=== PATIENT | male | born 1945 | race Caucasian/White ===

== ENCOUNTER → 2016-11-22 | Outpatient (CLI) | payer OTHER ==
[~2016-11-22] MED LIST: ASCA500 PO; BENA20TA14 PO; CYAN250T PO; DILT-119 PO; GLC500 PO; INSU70IN2 SC; MULT-506 PO; NIAC1TAB59 PO; PYRI60TA2 PO; SIMV80TA2 PO; SITA100T3 PO; THIA100T11 PO
[2016-11-22 11:16] LABS: HEMATOCRIT 44.1 % (42-52); MEAN CELL VOLUME 91.7 fL (80-100); MEAN CORPUSCULAR HEMOGLOBIN 31.2 pg (25-34); MEAN PLATELET VOLUME 9.7 fL (7.4-10.4); PLATELET COUNT 265 K/uL (130-400); RED BLOOD COUNT 4.81 M/uL (4.7-6.1); WHITE BLOOD COUNT 6.06 K/uL (4.8-10.8)
[2016-11-22 11:25] LABS: ALT/SGPT 23 U/L (12-78); AST/SGOT 18 U/L (15-37); BLOOD UREA NITROGEN 26 mg/dl (7-18); CALCIUM 8.8 mg/dl (8.5-10.1); CARBON DIOXIDE 29 mmol/L (21-32); CHLORIDE 104 mmol/L (98-107); GLUCOSE 222 mg/dl (70-99); POTASSIUM 3.8 mmol/L (3.5-5.1); SODIUM 141 mmol/L (136-145)
[2016-11-22 11:27] LABS: ALB/GLOB RATIO 1.2 (0.9-2); ALKALINE PHOSPHATASE 35 U/L (45-117)
[2016-11-22 11:27] LABS: URINE APPEARANCE CLEAR (CLEAR); URINE BILIRUBIN NEG (NEG); URINE COLOR YELLOW; URINE NITRITE NEG (NEG); URINE PH 5.5 (4.5-7.5); UROBILINOGEN NEG (NEG)
[2016-11-22 11:28] LABS: MANUAL MICROSCOPIC REQUIRED? NO; REVIEW REQ? NO
[2016-11-22 11:48] LABS: URINE PROTIEN/CREAT RATIO 0.2 (0-0.2); URINE TOTAL PROTEIN 28.1 mg/dl (0-11.9)
== END | disposition home or self-care (01) ==
LOC: C.LABBC 09:12
PROVIDERS: ATTEND Internal Medicine Nephrology
DX: E55.9 Vitamin D deficiency, unspecified (principal); I12.9 Hypertensive chronic kidney disease with stage 1 through stage 4 chronic kidney disease, or unspecified chronic kidney disease; N18.3 Chronic kidney disease, stage 3 (moderate); R80.9 Proteinuria, unspecified; E11.9 Type 2 diabetes mellitus without complications

== ENCOUNTER → 2017-05-09 | Outpatient (CLI) | payer OTHER ==
[2017-05-09 11:03] LABS: HEMATOCRIT 45.1 % (42-52); MEAN CELL VOLUME 89.3 fL (80-100); MEAN CORPUSCULAR HEMOGLOBIN 31.7 pg (25-34); MEAN CORPUSCULAR HGB CONC 35.5 g/dl (32-36); MEAN PLATELET VOLUME 9.9 fL (7.4-10.4); PLATELET COUNT 267 K/uL (130-400); RED BLOOD COUNT 5.05 M/uL (4.7-6.1); WHITE BLOOD COUNT 6.19 K/uL (4.8-10.8)
[2017-05-09 11:18] LABS: BLOOD UREA NITROGEN 28 mg/dl (7-18); BUN/CREATININE RATIO 13.8 (10-20); CALCIUM 9.3 mg/dl (8.5-10.1); CARBON DIOXIDE 24 mmol/L (21-32); CHLORIDE 102 mmol/L (98-107); CHOLESTEROL 181 mg/dl (0-200); GLUCOSE 311 mg/dl (70-99); POTASSIUM 3.5 mmol/L (3.5-5.1); SODIUM 137 mmol/L (136-145); TRIGLYCERIDES 345 mg/dl (0-150); VERY LOW DENSITY LIPOPROT CALC 69 mg/dl
[2017-05-09 11:31] LABS: URINE APPEARANCE CLEAR (CLEAR); URINE BILIRUBIN NEG (NEG); URINE COLOR YELLOW; URINE EPITHELIAL CELL AUTO 0-5 /lpf (0-5); URINE NITRITE NEG (NEG); URINE SPECIFIC GRAVITY 1.023 (1.000-1.030); UROBILINOGEN NEG (NEG)
[2017-05-09 11:33] LABS: MANUAL MICROSCOPIC REQUIRED? NO; REVIEW REQ? NO
[2017-05-09 11:35] LABS: URINE PROTIEN/CREAT RATIO 0.1 (0-0.2); URINE TOTAL PROTEIN 19.2 mg/dl (0-11.9)
[2017-05-09 11:59] LABS: HDL CHOLESTEROL 26 mg/dl; PHOSPHORUS 3.2 mg/dl (2.5-4.9)
[2017-05-09 12:06] LABS: BETA-HYDROXYBUTYRATE 3.16 mg/dL (0.2-2.81)
== END | disposition home or self-care (01) ==
LOC: C.LABBC 09:25
PROVIDERS: ATTEND Internal Medicine Nephrology
DX: E78.5 Hyperlipidemia, unspecified (principal); E55.9 Vitamin D deficiency, unspecified; I12.9 Hypertensive chronic kidney disease with stage 1 through stage 4 chronic kidney disease, or unspecified chronic kidney disease; R80.9 Proteinuria, unspecified; N18.3 Chronic kidney disease, stage 3 (moderate)

== ENCOUNTER → 2017-09-18 | Outpatient (CLI) | payer OTHER ==
[~2017-09-18] MED LIST changes: +ASPI-461 PO; +ATOR-26 PO; +AZAT50TA17 PO; +BENA1TAB53 PO; +CHOL100010 PO; +CYAN100020 PO; +FENO145T26 PO; +HYDR25TA5 PO; +IBUP600T44 PO; +INSDGIPEN SC; +MULTCAP36 PO; +NAPR-22 PO; +NRN600 PO; +NVLGI/PEN SC; +TADA20TA PO; +THIA100T10 PO; -THIA100T11 PO
--- NOTE | 2017-09-18 16:17 | DIAGNOSTIC IMAGING REPORT ---
CHEST 2 VIEWS ROUTINE CLINICAL HISTORY: R05 [id number] cough. Dyspnea. COMPARISON STUDY: No previous studies for comparison. FINDINGS: The bones soft tissues and hemidiaphragms are normal. The cardiomediastinal silhouette is normal. The lungs are clear. The pulmonary vasculature is normal. IMPRESSION: Negative chest. The above report was generated using voice recognition software. It may contain grammatical, syntax or spelling errors. Electronically signed by: Valerio Teresa M.D. 09/18/2017 4:16 PM Dictated Date/Time: 09/18/2017 4:15 PM
== END | disposition home or self-care (01) ==
LOC: C.RADBC 15:54
PROVIDERS: ATTEND Nurse Practitioner Adult Health
DX: R05 Cough (principal)

== ENCOUNTER 2017-10-27 16:00 | Inpatient (IN) | payer OTHER ==
[~2017-10-27] VITALS: Ht 182.9 cm; Wt 107.4 kg
[~2017-10-27 16:00] MED LIST changes: -ASPI-461 PO; -ATOR-26 PO; -AZAT50TA17 PO; -BENA1TAB53 PO; -CHOL100010 PO; -CYAN100020 PO; -FENO145T26 PO; -HYDR25TA5 PO; -IBUP600T44 PO; -INSDGIPEN SC; -MULTCAP36 PO; -NAPR-22 PO; -NRN600 PO; -NVLGI/PEN SC; -TADA20TA PO; -THIA100T10 PO; +THIA100T11 PO
[2017-10-27] MEDS ORDERED: SODIUM CHLORIDE 0.9% 1000ML 1,000 ML IV STA (16:15)
--- NOTE | 2017-10-27 16:35 | DIAGNOSTIC IMAGING REPORT ---
CHEST ONE VIEW PORTABLE CLINICAL HISTORY: Pain, radiating to the abdomen COMPARISON STUDY: 09/18/2017 FINDINGS: The cardiac and mediastinal contours are normal. There is no evidence of focal pulmonary consolidation. There is no evidence of failure. No pleural effusions are visualized.[ No free intraperitoneal air is visualized. IMPRESSION: No active disease in the chest. Electronically signed by: Farooq Laws M.D. 10/27/2017 4:34 PM Dictated Date/Time: 10/27/2017 4:33 PM
[2017-10-27] MEDS ORDERED: PANTOprazole INJ 80 MG in DEXTROSE 5% 100ML IV ONE (16:45)
[2017-10-27 16:48] LABS: BASO % 0.1 %; BASO ABS # 0.01 K/uL (0-0.2); EOS % 0.2 %; EOS ABS # 0.02 K/uL (0-0.5); HEMATOCRIT 41.1 % (42-52); HEMOGLOBIN 14.4 g/dL (14.0-18.0); IG# 0.05 K/uL (0.00-0.02); LYMPH % 7.3 %; LYMPH ABS # 0.85 K/uL (1.2-3.4); MEAN CELL VOLUME 90.3 fL (80-100); MEAN CORPUSCULAR HEMOGLOBIN 31.6 pg (25-34); MEAN PLATELET VOLUME 10.1 fL (7.4-10.4); MONO % 5.9 %; MONO ABS # 0.68 K/uL (0.11-0.59); NEUT % 86.1 %; NEUT ABS # 9.96 K/uL (1.4-6.5); PLATELET COUNT 254 K/uL (130-400); RED CELL DISTRIBUTION WIDTH CV 13.2 % (11.5-14.5); RED CELL DISTRIBUTION WIDTH SD 43.2 fL (36.4-46.3); WHITE BLOOD COUNT 11.57 K/uL (4.8-10.8)
[2017-10-27 16:58] LABS: PTT PATIENT 30.8 SECONDS (21.0-31.0)
[2017-10-27] MEDS ORDERED: PANTOprazole INJ 40 MG in DEXTROSE 5% 100ML IV SCH (17:00)
[2017-10-27] MEDS ORDERED: INSDGIPEN SC (17:05)
[2017-10-27] MEDS ORDERED: TADA20TA PO (17:05)
[2017-10-27] MEDS ORDERED: NRN600 PO (17:05)
[2017-10-27] MEDS ORDERED: CHOL100010 PO (17:05)
[2017-10-27] MEDS ORDERED: MULTCAP36 PO (17:05)
[2017-10-27] MEDS ORDERED: PYRI60TA2 PO (17:05)
[2017-10-27] MEDS ORDERED: HYDR25TA5 PO (17:05)
[2017-10-27] MEDS ORDERED: BENA1TAB53 PO (17:05)
[2017-10-27] MEDS ORDERED: NVLGI/PEN SC (17:05)
[2017-10-27] MEDS ORDERED: NAPR-1169 PO (17:05)
[2017-10-27] MEDS ORDERED: FENO145T26 PO (17:05)
[2017-10-27] MEDS ORDERED: AZAT50TA17 PO (17:05)
[2017-10-27] MEDS ORDERED: IBUP600T44 PO (17:05)
[2017-10-27] MEDS ORDERED: ASPI-461 PO (17:05)
[2017-10-27] MEDS ORDERED: ATOR-26 PO (17:05)
[2017-10-27] MEDS ORDERED: CYAN100020 PO (17:05)
[2017-10-27 17:14] LABS: ALBUMIN 2.9 gm/dl (3.4-5.0); ALKALINE PHOSPHATASE 106 U/L (45-117); ALT/SGPT 46 U/L (12-78); AST/SGOT 94 U/L (15-37); BLOOD UREA NITROGEN 50 mg/dl (7-18); CARBON DIOXIDE 22 mmol/L (21-32); CREATININE 2.04 mg/dl (0.60-1.40); GLUCOSE 461 mg/dl (70-99); LIPASE 142 U/L (73-393); POTASSIUM 3.8 mmol/L (3.5-5.1); SODIUM 131 mmol/L (136-145); TOTAL PROTEIN 7.5 gm/dl (6.4-8.2)
[2017-10-27] MEDS ORDERED: NovoLIN-R INSULIN PER UNIT CHARGE SC STA (17:28)
--- NOTE | 2017-10-27 18:07 | DIAGNOSTIC IMAGING REPORT ---
CT SCAN OF THE ABDOMEN AND PELVIS WITHOUT CONTRAST CLINICAL HISTORY: Generalized abdominal pain COMPARISON STUDY: No previous studies for comparison. TECHNIQUE: CT scan of the abdomen and pelvis was performed from the lung bases to the proximal femurs. Images are reviewed in the axial, sagittal, and coronal planes. IV contrast was not administered for this examination. A dose lowering technique was utilized adhering to the principles of ALARA. CT DOSE: 1013.90 mGy.cm FINDINGS: Lower chest: There are minor dependent atelectatic changes. There are coronary artery calcifications. Liver: The unenhanced liver is normal in size, contour, and attenuation. There is no intrahepatic biliary ductal dilatation. Gallbladder: There are multiple gallstones present. There is gallbladder wall thickening. There is infiltration of the pericholecystic fat. The findings are viewed as suspicious for acute cholecystitis. Spleen: Normal in size and attenuation. Pancreas: Unremarkable. Adrenal glands: There is mild adrenal gland thickening Kidneys: No renal, ureteral, or bladder calculi are visualized. Bowel: There are no transition zones indicate bowel obstruction. There is colonic diverticulosis. There are no acute peridiverticular inflammatory changes. The appendix appears normal. There is a large duodenal diverticulum. Peritoneum: There is no intraperitoneal free air or abdominal ascites. Vasculature: The abdominal aorta is normal in course and caliber. Adenopathy: None. Pelvic viscera: The prostate is enlarged measuring 62 mm in diameter. Skeletal structures: No destructive osseous lesions are seen. There is a prominent disc osteophyte complex at the L5-S1 level. IMPRESSION: 1. Multiple gallstones, gallbladder wall thickening, and infiltration of the pericholecystic fat. The findings are viewed as highly suspicious for acute cholecystitis. 2. No evidence of bowel obstruction. No evidence of free air 3. Normal appendix 4. Diverticulosis. No evidence of acute diverticulitis 5. Enlarged prostate Electronically signed by: Farooq Laws M.D. 10/27/2017 6:05 PM Dictated Date/Time: 10/27/2017 6:00 PM
[2017-10-27] MEDS ORDERED: ACETAMINOPHEN 325 MG TAB PO PRN (19:15)
[2017-10-27] MEDS ORDERED: ONDANSETRON INJ 2 MG/ML 2 ML VIAL IV PRN (19:15)
[2017-10-27] MEDS ORDERED: ALUMINUM/MAGNESIUM/SIMETH (MAALOX MAX) 30 ML UDC PO PRN (19:15)
[2017-10-27] MEDS ORDERED: PHARMACY GLYCEMIC MGMT CONSULT PRN (19:15)
[2017-10-27] MEDS ORDERED: MAGNESIUM HYDROXIDE SUSP 30 ML UDC PO PRN (19:15)
[2017-10-27] MEDS ORDERED: POLYETHYLENE (MIRALAX) 17 GM PACK PO PRN (19:15)
--- NOTE | 2017-10-27 19:34 | History and Physical ---
History & Physical Date & Time of Service: Oct 27, 2017 at 19:34 Chief Complaint: Upper Gastric Pain Primary Care Physician: Audrey Treadwell .KAYCEE History of Present Illness Source: patient, family Mr. Hardy is a 72 y/o male with PMHx of T2DM, HTN, HLD, CKD Stage III, and Myasthenia Gravis who prevents to the ED from his PCP for acute onset upper abdominal pain that started today. However, he states his symptoms started with discomfort but emphasizes this was not pain. He had a heavy lunch on and took his insulin as prescribed. Throughout the day he was experiencing abdominal bloating, frequent urination, and feelings of thirst. However he states he didn't have much of an appetite because of this discomfort and feelings of nausea. He has only been eating crackers and buttered toast since that large lunch. Since he has not been eating he did not take his insulin from Thursday until today which he only reports taking approx. 20 units. He normally takes Novolog 40 units breakfast and 40 units at dinner with Lantus 80 units HS. He reports he has not been checking his glucose over these past few days. He has uncontrolled diabetes with A1c from Aug 2016 of 11.5. He states when he went to his PCP for his fatigue and discomfort he developed acute upper quadrant abdominal pain that spans across the lower chest that lasted approx. 30 minutes. Cannot identify aggravating factors but morphine in the ambulance helped give relief. He also reports one bowel movement this AM that was black in color and has not had a BM since. He denies iron supplementation or Pepto-Bismol use. He occ. uses NSAIDs but is rare and not every day. He states he has had intermittent black stool in the past stating it was because he was anemic but did denies H/O known ulcers. In the ED, CT reveals findings suggesting acute cholecystitis. He is afebrile with a mild leukocytosis. Cr is 2.04 with baseline appearing to be 2.2 per nephrology notes. Glucose is 461 with anion gap of 15. Given 7 units Novolog in ED with improvement to 385. Past Medical/Surgical History 1. T2DM 2. HTN 3. HLD 4. CKD Stage III 5. Myasthenia Gravis Family History Diabetes mellitus Hypertension Social History Smoking Status: Current Some Day Smoker (cigars) Smokeless Tobacco Use: No Alcohol Use: none Drug Use: none Marital Status: Housing status: lives with significant other Occupational Status: employed Immunizations History of Influenza Vaccine: Yes History of Tetanus Vaccine?: Unknown History of Pneumococcal: Unknown History of Hepatitis B Vaccine: Unknown Multi-Drug Resistant Organisms History of MDRO: No Allergies Coded Allergies: No Known Allergies (Unverified , 10/27/17) Home Medications Scheduled Aspirin (Aspirin), 81 MG PO DAILY Atorvastatin (Lipitor), 80 MG PO DAILY Azathioprine (Imuran), 100 MG PO DAILY Benazepril (Lotensin), 40 MG PO DAILY Cholecalciferol (Vitamin D), 1,000 UNITS PO DAILY Cyanocobalamin (Vitamin B12), 1,000 MG PO DAILY Fenofibrate (Tricor ), 145 MG PO DAILY Gabapentin (Gabapentin), 600 MG PO HS Hydrochlorothiazide (Hydrochlorothiazide), 25 MG PO DAILY Insulin Aspart (Novolog Flexpen), 80 UNITS SC UD Insulin Glargine (Lantus Solostar), 80-90 UNITS SC DAILY Multiple Vitamins W/ Minerals (Preservision/Lutein), 2 CAP PO DAILY Pyridostigmine [place] (Mestinon), 360-720 TABS PO DAILY Scheduled PRN Ibuprofen (Motrin), 600 MG PO QID PRN for Pain Naproxen (Naprosyn), 500 MG PO BID PRN for Pain Tadalafil (Cialis), 20 MG PO UD PRN for ACTIVITY Review of Systems General/Constitutional: + chills, + fatigue, + generalized weakness; Denies fever ENT: Denies visual changes, nasal drainage, hearing loss, sore throat, trouble swallowing Cardiovascular: Denies chest pain, palpitations, edema Respiratory: Denies cough, sputum, SOB, wheezing, orthopnea GI: + nausea, + abdominal pain, + melena; Denies vomiting, hematochezia : + urinary frequency; Denies dysuria Musculoskeletal: Denies joint/muscle aches, weakness, swelling Neurologic: Denies dizziness/lightheadedness, numbness/tingling, weakness Endocrine: + polydipsia, + polyuria Hematologic/Lymphatic: Denies bleeding/clotting abnormalities Skin: Denies rash Physical Exam Vital Signs Date Time Temp Pulse Resp B/P (MAP) Pulse Ox O2 Delivery O2 Flow Rate FiO2 2/6/18 17:36 168/86 10/27/17 17:30 93 19 10/27/17 17:00 91 13 10/27/17 16:30 94 16 10/27/17 16:20 93 10/27/17 16:19 37.2 102 19 154/73 97 Room Air 10/27/17 16:18 97 Room Air 10/27/17 16:05 154/73 General Appearance: WDWN in NAD who is A&O x 3 HEENT: Head is normocephalic/atraumatic; EOMI; PERRLA; Hearing grossly intact; Mucous membranes dry Neck: Supple; Trachea midline; Neg JVD Heart: RRR with no M/G/R Lungs: CTA in all lung lan bilaterally; Respirations unlabored; Neg accessory muscle use Abdomen: Soft, tender to palpation in RUQ without guarding or rigidity, mildly distended; Positive BS x 4 quadrants Extremities: Capillary refill < 2 seconds; Neg cyanosis or edema Neurological: Speech clear, Neg focal neurologic deficits, gait steady Psychiatric: Appropriate mood/affect Skin: Normal Color; Warm/Dry Diagnostics Laboratory Results Results Past 24 Hours Test 10/27/17 16:25 10/27/17 19:29 Range/Units White Blood Count 11.57 4.8-10.8 K/uL Red Blood Count 4.55 4.7-6.1 M/uL Hemoglobin 14.4 14.0-18.0 g/dL Hematocrit 41.1 42-52 % Mean Corpuscular Volume 90.3 80-100 fL Mean Corpuscular Hemoglobin 31.6 25-34 pg Mean Corpuscular Hemoglobin Concent 35.0 32-36 g/dl Platelet Count 254 130-400 K/uL Mean Platelet Volume 10.1 7.4-10.4 fL Neutrophils (%) (Auto) 86.1 % Lymphocytes (%) (Auto) 7.3 % Monocytes (%) (Auto) 5.9 % Eosinophils (%) (Auto) 0.2 % Basophils (%) (Auto) 0.1 % Neutrophils # (Auto) 9.96 1.4-6.5 K/uL Lymphocytes # (Auto) 0.85 1.2-3.4 K/uL Monocytes # (Auto) 0.68 0.11-0.59 K/uL Eosinophils # (Auto) 0.02 0-0.5 K/uL Basophils # (Auto) 0.01 0-0.2 K/uL RDW Standard Deviation 43.2 36.4-46.3 fL RDW Coefficient of Variation 13.2 11.5-14.5 % Immature Granulocyte % (Auto) 0.4 % Immature Granulocyte # (Auto) 0.05 0.00-0.02 K/uL Prothrombin Time 10.0 9.0-12.0 SECONDS Prothromb Time International Ratio 1.0 0.9-1.1 Activated Partial Thromboplast Time 30.8 21.0-31.0 SECONDS Partial Thromboplastin Ratio 1.2 Sodium Level 131 136-145 mmol/L Potassium Level 3.8 3.5-5.1 mmol/L Chloride Level 94 98-107 mmol/L Carbon Dioxide Level 22 21-32 mmol/L Anion Gap 15.0 3-11 mmol/L Blood Urea Nitrogen 50 7-18 mg/dl Creatinine 2.04 0.60-1.40 mg/dl Est Creatinine Clear Calc Drug Dose 42.5 ml/min Estimated GFR () 36.6 Estimated GFR (Non- 31.6 BUN/Creatinine Ratio 24.3 10-20 Random Glucose 461 70-99 mg/dl Calcium Level 9.0 8.5-10.1 mg/dl Magnesium Level 2.8 1.8-2.4 mg/dl Total Bilirubin 1.9 0.2-1 mg/dl Direct Bilirubin 1.0 0-0.2 mg/dl Aspartate Amino Transf (AST/SGOT) 94 15-37 U/L Alanine Aminotransferase (ALT/SGPT) 46 12-78 U/L Alkaline Phosphatase 106 45-117 U/L Troponin I < 0.015 0-0.045 ng/ml Total Protein 7.5 6.4-8.2 gm/dl Albumin 2.9 3.4-5.0 gm/dl Lipase 142 73-393 U/L Beta-Hydroxybutyric Acid 27.22 0.2-2.81 mg/dL Diagnostic Radiology CT SCAN OF THE ABDOMEN AND PELVIS WITHOUT CONTRAST FINDINGS: Lower chest: There are minor dependent atelectatic changes. There are coronary artery calcifications. Liver: The unenhanced liver is normal in size, contour, and attenuation. There is no intrahepatic biliary ductal dilatation. Gallbladder: There are multiple gallstones present. There is gallbladder wall thickening. There is infiltration of the pericholecystic fat. The findings are viewed as suspicious for acute cholecystitis. Spleen: Normal in size and attenuation. Pancreas: Unremarkable. Adrenal glands: There is mild adrenal gland thickening Kidneys: No renal, ureteral, or bladder calculi are visualized. Bowel: There are no transition zones indicate bowel obstruction. There is colonic diverticulosis. There are no acute peridiverticular inflammatory changes. The appendix appears normal. There is a large duodenal diverticulum. Peritoneum: There is no intraperitoneal free air or abdominal ascites. Vasculature: The abdominal aorta is normal in course and caliber. Adenopathy: None. Pelvic viscera: The prostate is enlarged measuring 62 mm in diameter. Skeletal structures: No destructive osseous lesions are seen. There is a prominent disc osteophyte complex at the L5-S1 level. IMPRESSION: 1. Multiple gallstones, gallbladder wall thickening, and infiltration of the pericholecystic fat. The findings are viewed as highly suspicious for acute cholecystitis. 2. No evidence of bowel obstruction. No evidence of free air 3. Normal appendix 4. Diverticulosis. No evidence of acute diverticulitis 5. Enlarged prostate CHEST ONE VIEW PORTABLE FINDINGS: The cardiac and mediastinal contours are normal. There is no evidence of focal pulmonary consolidation. There is no evidence of failure. No pleural effusions are visualized.[ No free intraperitoneal air is visualized. IMPRESSION: No active disease in the chest. EKG Normal sinus rhythm Prolonged QT Abnormal ECG When compared with ECG of 20-JAN-2011 14:02, QT has lengthened Impression Assessment and Plan Mr. Hardy is a 72 y/o male with PMHx of T2DM, HTN, HLD, CKD Stage III, and Myasthenia Gravis who prevents to the ED from his PCP for acute onset upper abdominal pain that started today. CT reveals acute cholecystitis and presence of DKA. Acute Cholecystitis: - Invanz 1 g IV daily - NPO - Morphine PRN pain - Consult Gen Surg - appreciate recommendations Uncontrolled T2DM with DKA and Anion Gap: A1c 11.5 (Aug 2016) - Initial BSG 461 was given 7 units Novolog in ED with improvement to 385 - Start insulin gtt with HHS guidelines to reduce rapid decrease in glucose - NSS 1 L given in ED and will initiate NSS + 20 mEq KCl at 125 mL/hr as K is low normal with pending order to convert to D5 1/2 NS + 20 mEq KCl when BSGs reach goal - VBG, BMP, Mag, and Phos Q4H until stabilized and anion gap closes - Obtain updated A1c QT Prolongation: - Continue to monitor - repeat EKG in AM and monitor electrolytes CKD Stage III: Baseline Cr 2.2 - Follows with nephrology - is currently stable and will continue to monitor Melena? Possible Upper GI Bleed: - Protonix gtt and monitor H&H - Hold ASA given possible melena and possible surgical intervention HTN: - Hold HCTZ and Bonazepril and cover with Hydralazine PRN HLD: - Hold Atorvastatin and Tricor Myasthenia Gravis: STABLE - Patient reports he does not take Mestinon or Imuran anymore and denies recent myasthenia crises DVT Prophylaxis: SCDs Code Status: FULL RESUSCITATION PA Physician Supervision Note: I interviewed and examined the patient. Discussed with mid level PA and agree with findings and plan as documented in the note. Any exceptions or clarifications are listed here: None, agreed current management, for details please referral to PA's note S: was having once tarry stool, missed 3-4 days insulin, then gave 28 unit by self this am, was feeling mid chest pain lasting 3-5 min, resolved on its own ROS details see PA's note O: VS reviewed, stable, NAD, conversational, not pale, Lungs: decreased breathing sound, no respiratory distress, no accessory muscle use Cardiovascular: regular rate, rhythm, trace edema, normal peripheral pulses Abdomen / GI: normal bowel sounds, RUQ mild tender, soft Extremities: no calf tenderness, no pedal edema Neurologic/Psychiatric: alert, normal mood/affect, oriented x 3, CNII-XII intact labs, images reviewed , see PA's note A/P: 72 yo with : possible upper GI bleeding, NSAID related? PPI drip, GI consult, f/U HH cholecystitis: iv abx surgeon consult episode of chest pain lasting 3-5 min, ekg unremarkable , will be tele, ce and tn x2 more, IDDM, medicine none compliance, possible DKA with AG 15, insulin drip, pharmacy consulted d/w pt and family about care plan, answered questions Level of Care Telemetry Resuscitation Status FULL RESUSCITATION VTE Prophylaxis VTE Risk Assessment Done? Y/N: Yes Risk Level: Moderate Given or contraindicated: SCD's
[2017-10-27] MEDS ORDERED: METRONIDAZOLE / NSS 500 MG in PREMIXED NSS 100 ML IV SCH (19:45)
[2017-10-27] MEDS ORDERED: MoRPHine SULFATE 2 MG/ML CARP IV PRN (19:45)
[2017-10-27] MEDS ORDERED: MoRPHine SULFATE 4 MG/ML 1 ML CARP\\VIAL IV PRN (19:45)
[2017-10-27] MEDS ORDERED: HHS GOAL RANGE 250-350 mg/dl ONE (20:09)
[2017-10-27] MEDS ORDERED: INSULIN IV INFUSION PROTOCOL STA (20:10)
[2017-10-27] MEDS ORDERED: SEVERE STRESS LEVEL ONE (20:10)
[2017-10-27 20:18] LABS: HEMATOCRIT 39.5 % (42-52); HEMOGLOBIN 13.8 g/dL (14.0-18.0); MEAN CELL VOLUME 90.2 fL (80-100); MEAN CORPUSCULAR HEMOGLOBIN 31.5 pg (25-34); MEAN CORPUSCULAR HGB CONC 34.9 g/dl (32-36); PLATELET COUNT 257 K/uL (130-400); RED CELL DISTRIBUTION WIDTH CV 13.2 % (11.5-14.5); RED CELL DISTRIBUTION WIDTH SD 43.5 fL (36.4-46.3); WHITE BLOOD COUNT 10.34 K/uL (4.8-10.8)
[2017-10-27] MEDS ORDERED: PENDING D5 1/2NS+20mEq KCL IVF SCH (20:30)
[2017-10-27 20:48] LABS: CALCIUM 8.5 mg/dl (8.5-10.1); CREATININE 1.87 mg/dl (0.60-1.40); PHOSPHORUS 2.9 mg/dl (2.5-4.9); POTASSIUM 3.7 mmol/L (3.5-5.1)
[2017-10-27 20:50] VITALS: BP 154/80; PULSE 96; TEMP 37.4; O2SAT 96; BMI 31.8
[2017-10-27] MEDS: INSULIN ASPART 100 UNITS/ML 3 ML PEN SC SCH (21:00)
[2017-10-27] MEDS ORDERED: PANTOprazole INJ 40 MG in SYRINGE 0 ML IV SCH (21:00)
[2017-10-27] MEDS ORDERED: CIPROFLOXACIN / D5W 400 MG in PREMIXED IN D5W 200 ML IV SCH (21:00)
[2017-10-27] MEDS ORDERED: INSULIN HUMAN REGULAR IV BOLUS 4 UNIT in SYRINGE 0 ML IV ONE (21:15)
[2017-10-27] MEDS ORDERED: POTASSIUM CHLORIDE INJ 20 MEQ in SODIUM CHLORIDE 0.9% 1000ML 1,000 ML IV SCH (21:30)
--- NOTE | 2017-10-27 22:02 | Surgery Consultation ---
Consultation Date of Consultation: Oct 27, 2017. Attending Physician: Jose Reyes MD, PhD Reason for Consultation: Acute Cholecystitis History of Present Illness Patient is a 72M who presents to the ED tonight with RUQ abdominal pain which started earlier today around 3pm. States he has also had some nausea since but denies any episodes of vomiting. Denies trouble with urination. States he did have a dark BM this morning but denies any problems moving his bowels. Denies fever/chills/recent illness. States he has had some toast yesterday and some saltines this AM but denies any other food in the past 5 days. States he feels thirsty right now more than anything. PSHx significant for bilateral hernia repairs w/ mesh. Denies any other abdominal surgeries. Denies use of blood thinning or anticoagulant medications. PMHx significant for HTN and DM. Pt was found to have a random glucose of 461 in the ED. WBC 11.57 upon presentation to ED now down to 10.34. LFTs elevated in the ED as well. CT abd/pelvis shows Multiple gallstones, gallbladder wall thickening, and infiltration of the pericholecystic fat. Findings suggestive of acute cholecystitis. Family History Diabetes mellitus Hypertension Social History Smoking Status: Current Some Day Smoker (cigars) Smokeless Tobacco Use: No Alcohol Use: none Drug Use: none Marital Status: Occupation Status: employed Allergies Coded Allergies: No Known Allergies (Unverified , 10/27/17) Home Medications Scheduled Aspirin (Aspirin), 81 MG PO DAILY Atorvastatin (Lipitor), 80 MG PO DAILY Benazepril (Lotensin), 40 MG PO DAILY Cholecalciferol (Vitamin D), 1,000 UNITS PO DAILY Cyanocobalamin (Vitamin B12), 1,000 MG PO DAILY Fenofibrate (Tricor ), 145 MG PO DAILY Gabapentin (Gabapentin), 600 MG PO HS Hydrochlorothiazide (Hydrochlorothiazide), 25 MG PO DAILY Insulin Aspart (Novolog Flexpen), 80 UNITS SC UD Insulin Glargine (Lantus Solostar), 80-90 UNITS SC DAILY Multiple Vitamins W/ Minerals (Preservision/Lutein), 2 CAP PO DAILY Scheduled PRN Ibuprofen (Motrin), 600 MG PO QID PRN for Pain Naproxen (Naprosyn), 500 MG PO BID PRN for Pain Tadalafil (Cialis), 20 MG PO UD PRN for ACTIVITY Current Inpatient Medications Current Inpatient Medications Medications (Trade) Dose Ordered Sig/Fer Route Start Time Stop Time Status Last Admin Dose Admin Pantoprazole Sodium 40 mg/ Dextrose 100 ml @ 20 mls/hr Q5H IV 10/27/17 17:00 10/27/17 21:59 10/27/17 17:28 20 MLS/HR Potassium Chloride 20 meq/ Sodium Chloride 1,010 ml @ 125 mls/hr Q8H5M IV 10/27/17 21:30 11/26/17 21:29 10/27/17 21:34 125 MLS/HR Acetaminophen (Tylenol Tab) 650 mg Q4H PRN PO 10/27/17 19:15 11/26/17 19:14 Al Hydrox/Mg Hydrox/Simethicone (Maalox Max Susp) 15 ml Q4H PRN PO 10/27/17 19:15 11/26/17 19:14 Magnesium Hydroxide (Milk Of Magnesia Susp) 30 ml Q12H PRN PO 10/27/17 19:15 11/26/17 19:14 Ondansetron HCl (Zofran Inj) 4 mg Q6H PRN IV 10/27/17 19:15 11/26/17 19:14 Polyethylene (Miralax Powder Packet) 17 gm DAILY PRN PO 10/27/17 19:15 11/26/17 19:14 Insulin Aspart (novoLOG ASPART) [facility] 10/27/17 21:00 11/26/17 20:59 Miscellaneous Information (PENDING D5 1/ 2NS+20mEq KCL IVF) 1 ea Q2H N/A 10/27/17 20:30 11/26/17 20:29 Miscellaneous Information (Consult Glycemic Management Pharmacy) 1 ea UD PRN N/A 10/27/17 19:15 11/26/17 19:14 Morphine Sulfate (MoRPHine SULFATE INJ) 2 mg Q3H PRN IV 10/27/17 19:45 11/10/17 19:44 Morphine Sulfate (MoRPHine SULFATE INJ) 4 mg Q3H PRN IV 10/27/17 19:45 11/10/17 19:44 Ertapenem 1 gm/ Sodium Chloride 50 ml @ 120 mls/hr Q24H IV 10/27/17 21:00 11/06/17 20:59 Hydralazine HCl (HydrALAZINE INJ) 10 mg Q6 PRN IV. 10/27/17 20:00 11/26/17 19:59 Pantoprazole Sodium 40 mg/ Dextrose 100 ml @ 20 mls/hr Q5H IV 10/27/17 22:00 11/26/17 21:59 Insulin Human Regular 250 units/ Sodium Chloride 252.5 ml @ 0 mls/hr Q24H IV 10/27/17 21:15 11/26/17 21:14 Review of Systems Constitutional: No fever, No chills Respiratory: No shortness of breath Cardiovascular: No chest pain Abdomen: + pain, + nausea, No vomiting, No diarrhea, No constipation Genitourinary - Male: No dysuria Integumentary: No color change Physical Exam Date Time Temp Pulse Resp B/P (MAP) Pulse Ox O2 Delivery O2 Flow Rate FiO2 10/27/17 20:12 90 15 10/27/17 20:00 149/78 10/27/17 19:42 92 18 96 10/27/17 19:37 169/84 10/27/17 19:11 102 20 97 10/27/17 19:00 153/89 10/27/17 18:41 95 18 96 10/27/17 17:41 93 20 10/27/17 17:36 168/86 10/27/17 17:30 93 19 10/27/17 17:00 91 13 10/27/17 16:30 94 16 10/27/17 16:20 93 10/27/17 16:19 37.2 102 19 154/73 97 Room Air 10/27/17 16:18 97 Room Air 10/27/17 16:05 154/73 General Appearance: WD/WN, no apparent distress Head: normocephalic, atraumatic ENT: hearing grossly normal Respiratory/Chest: no respiratory distress, no accessory muscle use Abdomen/GI: soft, no organomegaly, no pulsatile mass, + tenderness (RUQ) Neurologic/Psych: alert, normal mood/affect, oriented x 3 Skin: normal color, warm/dry Laboratory Results Last 24 Hours Test 10/27/17 16:25 10/27/17 19:36 10/27/17 19:50 10/27/17 20:10 White Blood Count 11.57 K/uL 10.34 K/uL Red Blood Count 4.55 M/uL 4.38 M/uL Hemoglobin 14.4 g/dL 13.8 g/dL Hematocrit 41.1 % 39.5 % Mean Corpuscular Volume 90.3 fL 90.2 fL Mean Corpuscular Hemoglobin 31.6 pg 31.5 pg Mean Corpuscular Hemoglobin Concent 35.0 g/dl 34.9 g/dl Platelet Count 254 K/uL 257 K/uL Mean Platelet Volume 10.1 fL 10.0 fL Neutrophils (%) (Auto) 86.1 % Lymphocytes (%) (Auto) 7.3 % Monocytes (%) (Auto) 5.9 % Eosinophils (%) (Auto) 0.2 % Basophils (%) (Auto) 0.1 % Neutrophils # (Auto) 9.96 K/uL Lymphocytes # (Auto) 0.85 K/uL Monocytes # (Auto) 0.68 K/uL Eosinophils # (Auto) 0.02 K/uL Basophils # (Auto) 0.01 K/uL RDW Standard Deviation 43.2 fL 43.5 fL RDW Coefficient of Variation 13.2 % 13.2 % Immature Granulocyte % (Auto) 0.4 % Immature Granulocyte # (Auto) 0.05 K/uL Prothrombin Time 10.0 SECONDS Prothromb Time International Ratio 1.0 Activated Partial Thromboplast Time 30.8 SECONDS Partial Thromboplastin Ratio 1.2 Sodium Level 131 mmol/L 134 mmol/L Potassium Level 3.8 mmol/L 3.7 mmol/L Chloride Level 94 mmol/L 100 mmol/L Carbon Dioxide Level 22 mmol/L 23 mmol/L Anion Gap 15.0 mmol/L 11.0 mmol/L Blood Urea Nitrogen 50 mg/dl 47 mg/dl Creatinine 2.04 mg/dl 1.87 mg/dl Est Creatinine Clear Calc Drug Dose 42.5 ml/min 46.4 ml/min Estimated GFR () 36.6 40.7 Estimated GFR (Non- 31.6 35.1 BUN/Creatinine Ratio 24.3 24.9 Random Glucose 461 mg/dl 418 mg/dl Calcium Level 9.0 mg/dl 8.5 mg/dl Magnesium Level 2.8 mg/dl Total Bilirubin 1.9 mg/dl Direct Bilirubin 1.0 mg/dl Aspartate Amino Transf (AST/SGOT) 94 U/L Alanine Aminotransferase (ALT/SGPT) 46 U/L Alkaline Phosphatase 106 U/L Troponin I < 0.015 ng/ml Total Protein 7.5 gm/dl Albumin 2.9 gm/dl Lipase 142 U/L Beta-Hydroxybutyric Acid 27.22 mg/dL 24.42 mg/dL Bedside Glucose 385 mg/dl Urine Color YELLOW Urine Appearance CLOUDY Urine pH 5.0 Urine Specific [place] 1.033 Urine Protein NEG Urine Glucose (UA) 3+ Urine Ketones 1+ Urine Occult Blood 3+ Urine Nitrite NEG Urine Bilirubin NEG Urine Urobilinogen NEG Urine Leukocyte Esterase NEG Urine WBC (Auto) 1-5 /hpf Urine RBC (Auto) 5-10 /hpf Urine Hyaline Casts (Auto) 1-5 /lpf Urine Epithelial Cells (Auto) 0-5 /lpf Urine Bacteria (Auto) NEG Venous Blood pH 7.43 Phosphorus Level 2.9 mg/dl Assessment & Plan Acute Cholecystitis Patient seen and examined by Dr. Gauthier. Labs and imaging suggest acute cholecystitis, elevated bilirubin suggestive of possible CBD stone. Admit per medicine service, Consult GI, RUQ U/S to further evaluate gallbladder, Patient will need a pre-op clearance from medical service prior to surgery. Will plan for laparoscopic cholecystectomy with Dr Gauthier following GI evaluation and possible MRCP/ERCP. NPO after midnight, Continue IV antibiotics, IV Fluids, IV Pain Medication PRN, IV Zofran for nausea PRN, SCDs, Repeat LFTs in AM. Please contact with any questions or concerns.
[2017-10-27] MEDS: ERTAPENEM IV 1 GM in SODIUM CHLOR 0.9% AD-VAN 50ML 50 ML IV SCH (22:05)
[2017-10-27] MEDS: PANTOprazole INJ 40 MG in DEXTROSE 5% 100ML IV SCH (22:05)
[2017-10-27] MEDS: INSULIN REGULAR 250 UNITS in SODIUM CHLORIDE 0.9% 250ML 250 ML IV SCH (22:19)
--- NOTE | 2017-10-27 23:17 | EMERGENCY ROOM VISIT NOTE ---
History Report prepared by Danny: Tony Cotton Under the Supervision of: Dr. Hayden Roca D.O. First contact with patient: 16:02 Stated Complaint: UPPER GASTRIC PAIN History of Present Illness The patient is a 72 year old male who presents to the Emergency Room by EMS with complaints of an episode upper abdominal pain beginning one hour ago. The patient states that he was at the doctor's office when he suddenly began experiencing his pain. He reports having an episode of dark, tarry stool this morning as well. The patient notes that he has had no appetite for the past several days, and has only eaten a very small amount. He states that he ate an extremely large meal six days ago for lunch, and took a large amount of insulin at the time, but has only eaten toast since then. Pt denies headache, change in vision, fevers, chest pain, shortness of breath, back pain, jaw pain, arm pain, cough, nausea, vomiting, diarrhea, and urinary symptoms. He is not on any blood thinners. Source of History: patient Onset: One hour ago Position: abdomen (upper) Timing: other (episode) Associated Symptoms: + melena, No fevers, No chills, No headache, No chest pain, No SOB, No nausea, No vomiting, No back pain, No diarrhea, No urinary symptoms Note: The patient denies visual changes, arm pain, or jaw pain. Review of Systems See HPI for pertinent positives & negatives. A total of 10 systems reviewed and were otherwise negative. Past Medical & Surgical Medical Problems: (1) Acute cholecystitis (2) HTN (hypertension) (3) Type 2 diabetes mellitus Family History No pertinent family history stated. Social History Housing Status: lives with family Current/Historical Medications Scheduled Aspirin (Aspirin), 81 MG PO DAILY Atorvastatin (Lipitor), 80 MG PO DAILY Benazepril (Lotensin), 40 MG PO DAILY Cholecalciferol (Vitamin D), 1,000 UNITS PO DAILY Cyanocobalamin (Vitamin B12), 1,000 MG PO DAILY Fenofibrate (Tricor ), 145 MG PO DAILY Gabapentin (Gabapentin), 600 MG PO HS Hydrochlorothiazide (Hydrochlorothiazide), 25 MG PO DAILY Insulin Aspart (Novolog Flexpen), 80 UNITS SC UD Insulin Glargine (Lantus Solostar), 80-90 UNITS SC DAILY Multiple Vitamins W/ Minerals (Preservision/Lutein), 2 CAP PO DAILY Scheduled PRN Ibuprofen (Motrin), 600 MG PO QID PRN for Pain Naproxen (Naprosyn), 500 MG PO BID PRN for Pain Tadalafil (Cialis), 20 MG PO UD PRN for ACTIVITY Allergies Coded Allergies: No Known Allergies (Unverified , 10/27/17) Physical Exam Vital Signs Date Time Temp Pulse Resp B/P (MAP) Pulse Ox O2 Delivery O2 Flow Rate FiO2 10/27/17 19:11 102 20 97 10/27/17 19:00 153/89 10/27/17 18:41 95 18 96 10/27/17 17:41 93 20 10/27/17 17:36 168/86 10/27/17 17:30 93 19 10/27/17 17:00 91 13 10/27/17 16:30 94 16 10/27/17 16:20 93 10/27/17 16:19 37.2 102 19 154/73 97 Room Air 10/27/17 16:18 97 Room Air 10/27/17 16:05 154/73 Physical Exam GENERAL: Sitting up in bed, alert, well appearing, well nourished, no distress, non-toxic EYE EXAM: normal conjunctiva. OROPHARYNX: no exudate, no erythema, lips, buccal mucosa, and tongue normal and mucous membranes are moist NECK: supple, no nuchal rigidity, no adenopathy, non-tender LUNGS: Clear to auscultation. Normal chest wall mechanics HEART: no murmurs, S1 normal and S2 normal ABDOMEN: abdomen soft, non-tender, normo-active bowel sounds, no masses, no rebound or guarding. BACK: Back is symmetrical on inspection and there is no deformity, no midline tenderness, no CVA tenderness. RECTAL: Dark, tarry stools. Diffusely heme positive. No external hemorrhoids. SKIN: no rashes and no bruising UPPER EXTREMITIES: upper extremities are grossly normal. LOWER EXTREMITIES: No pitting edema. NEURO EXAM: Normal sensorium, cranial nerves II-XII grossly intact, normal speech, no gross weakness of arms, no gross weakness of legs. Medical Decision & Procedures ER Provider Diagnostic Interpretation: Radiology results as stated below per my review and the radiologist's interpretation: CT SCAN OF THE ABDOMEN AND PELVIS WITHOUT CONTRAST FINDINGS: Lower chest: There are minor dependent atelectatic changes. There are coronary artery calcifications. Liver: The unenhanced liver is normal in size, contour, and attenuation. There is no intrahepatic biliary ductal dilatation. Gallbladder: There are multiple gallstones present. There is gallbladder wall thickening. There is infiltration of the pericholecystic fat. The findings are viewed as suspicious for acute cholecystitis. Spleen: Normal in size and attenuation. Pancreas: Unremarkable. Adrenal glands: There is mild adrenal gland thickening Kidneys: No renal, ureteral, or bladder calculi are visualized. Bowel: There are no transition zones indicate bowel obstruction. There is colonic diverticulosis. There are no acute peridiverticular inflammatory changes. The appendix appears normal. There is a large duodenal diverticulum. Peritoneum: There is no intraperitoneal free air or abdominal ascites. Vasculature: The abdominal aorta is normal in course and caliber. Adenopathy: None. Pelvic viscera: The prostate is enlarged measuring 62 mm in diameter. Skeletal structures: No destructive osseous lesions are seen. There is a prominent disc osteophyte complex at the L5-S1 level. IMPRESSION: 1. Multiple gallstones, gallbladder wall thickening, and infiltration of the pericholecystic fat. The findings are viewed as highly suspicious for acute cholecystitis. 2. No evidence of bowel obstruction. No evidence of free air 3. Normal appendix 4. Diverticulosis. No evidence of acute diverticulitis 5. Enlarged prostate Electronically signed by: Farooq Laws M.D. 10/27/2017 6:05 PM CHEST ONE VIEW PORTABLE FINDINGS: The cardiac and mediastinal contours are normal. There is no evidence of focal pulmonary consolidation. There is no evidence of failure. No pleural effusions are visualized.[ No free intraperitoneal air is visualized. IMPRESSION: No active disease in the chest. Electronically signed by: Faroqo Laws M.D. 10/27/2017 4:34 PM Laboratory Results Test 10/27/17 16:25 Immature Granulocyte % (Auto) 0.4 % White Blood Count 11.57 K/uL (4.8-10.8) Red Blood Count 4.55 M/uL (4.7-6.1) Hemoglobin 14.4 g/dL (14.0-18.0) Hematocrit 41.1 % (42-52) Mean Corpuscular Volume 90.3 fL (80-100) Mean Corpuscular Hemoglobin 31.6 pg (25-34) Mean Corpuscular Hemoglobin Concent 35.0 g/dl (32-36) Platelet Count 254 K/uL (130-400) Mean Platelet Volume 10.1 fL (7.4-10.4) Neutrophils (%) (Auto) 86.1 % Lymphocytes (%) (Auto) 7.3 % Monocytes (%) (Auto) 5.9 % Eosinophils (%) (Auto) 0.2 % Basophils (%) (Auto) 0.1 % Neutrophils # (Auto) 9.96 K/uL (1.4-6.5) Lymphocytes # (Auto) 0.85 K/uL (1.2-3.4) Monocytes # (Auto) 0.68 K/uL (0.11-0.59) Eosinophils # (Auto) 0.02 K/uL (0-0.5) Basophils # (Auto) 0.01 K/uL (0-0.2) Immature Granulocyte # (Auto) 0.05 K/uL (0.00-0.02) Prothrombin Time 10.0 SECONDS (9.0-12.0) Prothromb Time International Ratio 1.0 (0.9-1.1) Activated Partial Thromboplast Time 30.8 SECONDS (21.0-31.0) Partial Thromboplastin Ratio 1.2 Magnesium Level 2.8 mg/dl (1.8-2.4) Total Bilirubin 1.9 mg/dl (0.2-1) Direct Bilirubin 1.0 mg/dl (0-0.2) Aspartate Amino Transf (AST/SGOT) 94 U/L (15-37) Alanine Aminotransferase (ALT/SGPT) 46 U/L (12-78) Alkaline Phosphatase 106 U/L (45-117) Troponin I < 0.015 ng/ml (0-0.045) Total Protein 7.5 gm/dl (6.4-8.2) Albumin 2.9 gm/dl (3.4-5.0) Lipase 142 U/L (73-393) Laboratory results per my review. Medications Administered Medications (Trade) Dose Ordered Sig/Fer Route Start Time Stop Time Status Last Admin Dose Admin Sodium Chloride 1,000 ml @ 999 mls/hr Q1H1M STAT IV 10/27/17 16:15 10/27/17 17:15 DC 10/27/17 16:43 999 MLS/HR Pantoprazole Sodium 80 mg/ Dextrose 120 ml @ 480 mls/hr TODAY@1645 ONCE IV 10/27/17 16:45 10/27/17 16:59 DC 10/27/17 17:28 480 MLS/HR Pantoprazole Sodium 40 mg/ Dextrose 100 ml @ 20 mls/hr Q5H IV 10/27/17 17:00 10/27/17 21:59 DC 10/27/17 17:28 20 MLS/HR Insulin Human Regular (novoLIN-R U-100 PER UNIT) 7 units NOW STAT SC 10/27/17 17:28 10/27/17 17:30 DC 10/27/17 18:36 7 UNITS ECG Indication: abdominal pain Rate (beats per minute): 91 Rhythm: sinus rhythm Findings: prolonged QT, other (Normal axis. ) ED Course ED COURSE: Vital signs were reviewed and showed tachycardia The patients medical record was reviewed The above diagnostic studies were performed and reviewed. ED treatments and interventions as stated above. 1605: The patient was evaluated in room C5. A complete history and physical examination was performed. 1615: Ordered Sodium Chloride 1000 ml @ 999 mls/hr IV. 1619: Ordered Protonix Bolus/Drip IV. 1824: Upon reevaluation, the patient is resting comfortably. I discussed my findings with the patient and he understands and agrees with the treatment plan. Based on the patients age, coexisting illnesses, exam and lab findings the decision to treat as an inpatient was made. The patient remained stable while under my care. The patient will be evaluated for further management. Medical Decision Differential diagnoses includes but is not limited to gastritis, peptic ulcer disease, GERD, gallbladder disease, pancreatitis, small bowel obstruction, acute coronary syndrome, pericarditis, ischemic bowel, irritable bowel disease, irritable bowel syndrome, appendicitis, diverticulitis, malignancy, hernia, urinary tract infection, torsion, perforation, trauma, infectious. Patient is a 72-year-old male who presents to ER for epigastric abdominal pain brought in by ambulance. CBC shows a mild leukocytosis. BMP with a creatinine of 2 which is around baseline. BSG was significant elevated at 461. Patient was given subcutaneous insulin. Bilirubin was elevated. CO2 was unremarkable. Mild anion gap of 15. EKG was unremarkable. Troponin was negative. CT abdomen and pelvis shows likely acute cholecystitis. He was given IV antibiotics. Rectal was grossly heme positive. He was placed on a productive bolus. Discussed with general surgery. Patient was also discussed with internal medicine admitted for a likely upper GI bleed and acute cholecystitis. Medication Reconcilliation Current Medication List: was personally reviewed by me Blood Pressure Screening Patient's blood pressure: Elevated blood pressure Blood pressure disposition: Referred to PCP Consults Time Called: 1811 Consulting Physician: SHERRILL Ernandez PA-C Returned Call: 1814 I reviewed the patient's case with the on-call PA-C for [facility] General Surgery. Additional Consults: Time Called: 1817 Consulted Physician: Dr. Amy MCCARTNEY Hospitalist Returned Call: 1821 Additional Comments: I reviewed the patient's case with Dr. Reyes. [facility] will evaluate the patient for further management. Impression Primary Impression: Acute cholecystitis Additional Impressions: GI bleed Type 2 diabetes mellitus Scribe Attestation The scribe's documentation has been prepared under my direction and personally reviewed by me in its entirety. I confirm that the note above accurately reflects all work, treatment, procedures, and medical decision making performed by me. Departure Information Dispostion Being Evaluated By Hospitalist Referrals Audrey Treadwell ., KAYCEE (PCP) Problem Qualifiers Additional Impressions: GI bleed GI bleed type/associated pathology: unspecified gastrointestinal hemorrhage type Qualified Codes: K92.2 - Gastrointestinal hemorrhage, unspecified Type 2 diabetes mellitus Diabetes mellitus complication status: with unspecified complications Diabetes mellitus custodial insulin use: without custodial use Qualified Codes : E11.8 - Type 2 diabetes mellitus with unspecified complications
[2017-10-27 23:33] VITALS: BP 143/74; PULSE 87; TEMP 36.7; O2SAT 98
[2017-10-27] MEDS ORDERED: D5W AND 1/2NSS + 20MEQ KCL 1,000 ML IV SCH (23:45)
[2017-10-28] VITALS (10 sets, daily range): BP systolic 126–160; BP diastolic 71–81; PULSE 76–93; TEMP 36.8–37.2; O2SAT 94–98; Ht 182.9 cm; Wt 107.4 kg
[2017-10-28 00:36] LABS: BLOOD UREA NITROGEN 43 mg/dl (7-18); CALCIUM 8.5 mg/dl (8.5-10.1); CARBON DIOXIDE 27 mmol/L (21-32); CREATININE 1.79 mg/dl (0.60-1.40); GLUCOSE 288 mg/dl (70-99); POTASSIUM 3.7 mmol/L (3.5-5.1); SODIUM 135 mmol/L (136-145)
[2017-10-28 00:42] LABS: PHOSPHORUS 2.3 mg/dl (2.5-4.9)
[2017-10-28] MEDS: PANTOprazole INJ 40 MG in DEXTROSE 5% 100ML IV SCH ×5 (03:11→23:41)
--- NOTE | 2017-10-28 03:29 | Progress Note ---
Progress Note Date of Service Oct 28, 2017. Progress Note Elevated sugars. Cut D5 from maintenance fluids as already getting D5 in cipro and pantoprazole. Discussed with pharmacy. Resident Tracking Resident Involvement: Resident Care Provided Care Provided: Adult Hospital Medicine
[2017-10-28] MEDS: SODIUM CHLOR 0.45% + 20MEQ KCL 1,000 ML IV SCH ×2 (03:43→13:02)
[2017-10-28 04:23] LABS: HEMOGLOBIN 12.7 g/dL (14.0-18.0); MEAN CELL VOLUME 90.2 fL (80-100); MEAN CORPUSCULAR HGB CONC 34.3 g/dl (32-36); MEAN PLATELET VOLUME 9.6 fL (7.4-10.4); PLATELET COUNT 247 K/uL (130-400); RED CELL DISTRIBUTION WIDTH CV 13.2 % (11.5-14.5); RED CELL DISTRIBUTION WIDTH SD 43.5 fL (36.4-46.3); WHITE BLOOD COUNT 9.34 K/uL (4.8-10.8)
[2017-10-28 04:44] LABS: CREATININE 1.77 mg/dl (0.60-1.40); POTASSIUM 3.6 mmol/L (3.5-5.1)
[2017-10-28 04:45] LABS: PHOSPHORUS 2.1 mg/dl (2.5-4.9)
[2017-10-28 07:24] LABS: HEMOGLOBIN A1C 11.6 % (4.5-5.6)
[2017-10-28] MEDS: INSULIN ASPART 100 UNITS/ML 3 ML PEN SC SCH ×4 (08:00→20:54)
--- NOTE | 2017-10-28 08:26 | DIAGNOSTIC IMAGING REPORT ---
ABDOMEN LIMITED (US) CLINICAL HISTORY: 72 years-old Male presenting with Acute Cholecystitis. TECHNIQUE: Real-time grayscale and limited color Doppler ultrasound imaging of the abdomen limited to the right upper quadrant was performed. COMPARISON: CT from 10/27/2017. FINDINGS: Pancreas: Visualized portions of the pancreatic head and body normal. Liver: Mildly hyperechogenic parenchyma, although the right hemidiaphragm remains visible, likely indicating mild steatosis. No sonographic evidence of hepatic mass. Main portal vein patent with normal directional flow. Biliary: No intrahepatic biliary ductal dilatation. Common bile duct measures up to 6 mm in diameter. Gallbladder: The gallbladder contains sludge and gallstones. Gallbladder wall thickening over 5 mm. Hyperechogenicity of surrounding pericholecystic fat. Gallbladder is mildly distended. Unable to assess sonographic Power's sign. Right kidney: Normal in appearance. No hydronephrosis. Ascites: None. IMPRESSION: 1. Findings highly suspicious for acute cholecystitis as seen on CT. Surgical consultation recommended. 2. Hepatic steatosis. The report will be called/faxed according to standard departmental protocol. Electronically signed by: Shantanu Kirkpatrick M.D. 10/28/2017 8:25 AM Dictated Date/Time: 10/28/2017 8:23 AM
[2017-10-28 09:32] LABS: ALBUMIN 2.5 gm/dl (3.4-5.0); CALCIUM 8.5 mg/dl (8.5-10.1); CREATININE 1.57 mg/dl (0.60-1.40); PHOSPHORUS 1.8 mg/dl (2.5-4.9); POTASSIUM 3.6 mmol/L (3.5-5.1); TOTAL PROTEIN 6.7 gm/dl (6.4-8.2)
--- NOTE | 2017-10-28 09:57 | DIAGNOSTIC IMAGING REPORT ---
MRCP CLINICAL HISTORY: Acute cholecystitis. Evaluate for common bile duct calculus. COMPARISON STUDY: CT scan dated to 618, ultrasound dated 10/28/2017 FINDINGS: There are multiple gallstones present. There is significant gallbladder wall thickening and gallbladder wall edema. There are minimal inflammatory changes within the pericholecystic fat. The findings are indicative of acute cholecystitis. There is no intra or extrahepatic biliary ductal dilatation. There are 3 distal common bile duct filling defects consistent with calculi. The largest measures 4.5 mm. There is no pancreatic ductal dilatation. There are multiple left renal cortical cysts and parapelvic cysts. There is a large duodenal diverticulum. IMPRESSION: 1. Evidence of acute cholecystitis with cholelithiasis, gallbladder wall thickening, and gallbladder wall edema. Mild inflammatory changes are also present within the pericholecystic fat 2. Choledocholithiasis. There is a 4.5 mm common bile duct calculus. Additional smaller calculi are suspected. There is no significant ductal dilatation. Electronically signed by: Farooq Laws M.D. 10/28/2017 9:56 AM Dictated Date/Time: 10/28/2017 9:48 AM
--- NOTE | 2017-10-28 10:12 | Surgery Progress Note ---
Surgery Progress Note Date of Service Oct 28, 2017. Subjective 72-year-old male admitted overnight with acute cholecystitis and possible choledocholithiasis. Patient was down getting an MRCP when I went to see him, but I did speak with the daughter. Apparently feeling slightly better, still little appetite. Objective Vital Signs: Date Time Temp Pulse Resp B/P (MAP) Pulse Ox O2 Delivery O2 Flow Rate FiO2 10/28/17 08:29 37.0 82 20 136/79 (98) 94 10/28/17 04:00 95 Room Air 10/28/17 03:35 37.2 78 17 143/72 (95) 95 Room Air 10/28/17 00:01 96 Room Air 10/27/17 23:33 36.7 87 18 143/74 (97) 98 Room Air 10/27/17 20:50 37.4 96 16 154/80 96 Room Air 10/27/17 20:12 90 15 10/27/17 20:00 149/78 10/27/17 19:42 92 18 96 10/27/17 19:37 169/84 10/27/17 19:11 102 20 97 10/27/17 19:00 153/89 10/27/17 18:41 95 18 96 10/27/17 17:41 93 20 10/27/17 17:36 168/86 10/27/17 17:30 93 19 10/27/17 17:00 91 13 10/27/17 16:30 94 16 10/27/17 16:20 93 10/27/17 16:19 37.2 102 19 154/73 97 Room Air 10/27/17 16:18 97 Room Air 10/27/17 16:05 154/73 Abdomen: normal bowel sounds, non distended, soft, + tenderness Laboratory Results: Results Past 24 Hours Test 10/27/17 16:25 10/27/17 19:36 10/27/17 19:50 10/27/17 20:10 Range/Units White Blood Count 11.57 10.34 4.8-10.8 K/uL Red Blood Count 4.55 4.38 4.7-6.1 M/uL Hemoglobin 14.4 13.8 14.0-18.0 g/dL Hematocrit 41.1 39.5 42-52 % Mean Corpuscular Volume 90.3 90.2 80-100 fL Mean Corpuscular Hemoglobin 31.6 31.5 25-34 pg Mean Corpuscular Hemoglobin Concent 35.0 34.9 32-36 g/dl Platelet Count 254 257 130-400 K/uL Mean Platelet Volume 10.1 10.0 7.4-10.4 fL Neutrophils (%) (Auto) 86.1 % Lymphocytes (%) (Auto) 7.3 % Monocytes (%) (Auto) 5.9 % Eosinophils (%) (Auto) 0.2 % Basophils (%) (Auto) 0.1 % Neutrophils # (Auto) 9.96 1.4-6.5 K/uL Lymphocytes # (Auto) 0.85 1.2-3.4 K/uL Monocytes # (Auto) 0.68 0.11-0.59 K/uL Eosinophils # (Auto) 0.02 0-0.5 K/uL Basophils # (Auto) 0.01 0-0.2 K/uL RDW Standard Deviation 43.2 43.5 36.4-46.3 fL RDW Coefficient of Variation 13.2 13.2 11.5-14.5 % Immature Granulocyte % (Auto) 0.4 % Immature Granulocyte # (Auto) 0.05 0.00-0.02 K/uL Prothrombin Time 10.0 9.0-12.0 SECONDS Prothromb Time International Ratio 1.0 0.9-1.1 Activated Partial Thromboplast Time 30.8 21.0-31.0 SECONDS Partial Thromboplastin Ratio 1.2 Sodium Level 131 134 136-145 mmol/L Potassium Level 3.8 3.7 3.5-5.1 mmol/L Chloride Level 94 100 98-107 mmol/L Carbon Dioxide Level 22 23 21-32 mmol/L Anion Gap 15.0 11.0 3-11 mmol/L Blood Urea Nitrogen 50 47 7-18 mg/dl Creatinine 2.04 1.87 0.60-1.40 mg/dl Est Creatinine Clear Calc Drug Dose 42.5 46.4 ml/min Estimated GFR () 36.6 40.7 Estimated GFR (Non- 31.6 35.1 BUN/Creatinine Ratio 24.3 24.9 10-20 Random Glucose 461 418 70-99 mg/dl Calcium Level 9.0 8.5 8.5-10.1 mg/dl Magnesium Level 2.8 1.8-2.4 mg/dl Total Bilirubin 1.9 0.2-1 mg/dl Direct Bilirubin 1.0 0-0.2 mg/dl Aspartate Amino Transf (AST/SGOT) 94 15-37 U/L Alanine Aminotransferase (ALT/SGPT) 46 12-78 U/L Alkaline Phosphatase 106 45-117 U/L Troponin I < 0.015 0-0.045 ng/ml Total Protein 7.5 6.4-8.2 gm/dl Albumin 2.9 3.4-5.0 gm/dl Lipase 142 73-393 U/L Beta-Hydroxybutyric Acid 27.22 24.42 0.2-2.81 mg/dL Bedside Glucose 385 70-99 mg/dl Urine Color YELLOW Urine Appearance CLOUDY CLEAR Urine pH 5.0 4.5-7.5 Urine Specific [place] 1.033 1.000-1.030 Urine Protein NEG NEG Urine Glucose (UA) 3+ NEG Urine Ketones 1+ NEG Urine Occult Blood 3+ NEG Urine Nitrite NEG NEG Urine Bilirubin NEG NEG Urine Urobilinogen NEG NEG Urine Leukocyte Esterase NEG NEG Urine WBC (Auto) 1-5 0-5 /hpf Urine RBC (Auto) 5-10 0-4 /hpf Urine Hyaline Casts (Auto) 1-5 0-5 /lpf Urine Epithelial Cells (Auto) 0-5 0-5 /lpf Urine Bacteria (Auto) NEG NEG Venous Blood pH 7.43 7.36-7.41 Phosphorus Level 2.9 2.5-4.9 mg/dl Hepatitis C Antibody Screen NEG NEG Test 10/27/17 20:44 10/27/17 21:56 10/27/17 23:38 10/27/17 23:54 Range/Units Bedside Glucose 395 400 276 70-99 mg/dl Venous Blood pH 7.44 7.36-7.41 Sodium Level 135 136-145 mmol/L Potassium Level 3.7 3.5-5.1 mmol/L Chloride Level 102 98-107 mmol/L Carbon Dioxide Level 27 21-32 mmol/L Anion Gap 6.0 3-11 mmol/L Blood Urea Nitrogen 43 7-18 mg/dl Creatinine 1.79 0.60-1.40 mg/dl Est Creatinine Clear Calc Drug Dose 47.0 ml/min Estimated GFR () 42.9 Estimated GFR (Non- 37.0 BUN/Creatinine Ratio 24.1 10-20 Random Glucose 288 70-99 mg/dl Calcium Level 8.5 8.5-10.1 mg/dl Phosphorus Level 2.3 2.5-4.9 mg/dl Troponin I < 0.015 0-0.045 ng/ml Test 10/28/17 00:43 10/28/17 01:31 10/28/17 02:31 10/28/17 03:40 Range/Units Bedside Glucose 288 292 301 312 70-99 mg/dl Test 10/28/17 04:13 10/28/17 04:30 10/28/17 07:32 10/28/17 08:27 Range/Units White Blood Count 9.34 4.8-10.8 K/uL Red Blood Count 4.10 4.7-6.1 M/uL Hemoglobin 12.7 14.0-18.0 g/dL Hematocrit 37.0 42-52 % Mean Corpuscular Volume 90.2 80-100 fL Mean Corpuscular Hemoglobin 31.0 25-34 pg Mean Corpuscular Hemoglobin Concent 34.3 32-36 g/dl RDW Standard Deviation 43.5 36.4-46.3 fL RDW Coefficient of Variation 13.2 11.5-14.5 % Platelet Count 247 130-400 K/uL Mean Platelet Volume 9.6 7.4-10.4 fL Venous Blood pH 7.42 7.46 7.36-7.41 Sodium Level 137 136 136-145 mmol/L Potassium Level 3.6 3.6 3.5-5.1 mmol/L Chloride Level 103 104 98-107 mmol/L Carbon Dioxide Level 26 24 21-32 mmol/L Anion Gap 8.0 8.0 3-11 mmol/L Blood Urea Nitrogen 39 37 7-18 mg/dl Creatinine 1.77 1.57 0.60-1.40 mg/dl Est Creatinine Clear Calc Drug Dose 47.5 53.6 ml/min Estimated GFR () 43.5 50.3 Estimated GFR (Non- 37.5 43.4 BUN/Creatinine Ratio 22.1 23.4 10-20 Random Glucose 312 264 70-99 mg/dl Estimated Average Glucose 286 mg/dl Hemoglobin A1c 11.6 4.5-5.6 % Calcium Level 8.0 8.5 8.5-10.1 mg/dl Phosphorus Level 2.1 1.8 2.5-4.9 mg/dl Beta-Hydroxybutyric Acid 3.33 0.2-2.81 mg/dL Bedside Glucose 292 253 70-99 mg/dl Total Bilirubin 0.7 0.2-1 mg/dl Direct Bilirubin 0.3 0-0.2 mg/dl Aspartate Amino Transf (AST/SGOT) 24 15-37 U/L Alanine Aminotransferase (ALT/SGPT) 40 12-78 U/L Alkaline Phosphatase 96 45-117 U/L Total Protein 6.7 6.4-8.2 gm/dl Albumin 2.5 3.4-5.0 gm/dl Test 10/28/17 09:50 Range/Units Bedside Glucose 199 70-99 mg/dl Diagnostic Interpretation: ABDOMEN LIMITED (US) CLINICAL HISTORY: 72 years-old Male presenting with Acute Cholecystitis. TECHNIQUE: Real-time grayscale and limited color Doppler ultrasound imaging of the abdomen limited to the right upper quadrant was performed. COMPARISON: CT from 10/27/2017. FINDINGS: Pancreas: Visualized portions of the pancreatic head and body normal. Liver: Mildly hyperechogenic parenchyma, although the right hemidiaphragm remains visible, likely indicating mild steatosis. No sonographic evidence of hepatic mass. Main portal vein patent with normal directional flow. Biliary: No intrahepatic biliary ductal dilatation. Common bile duct measures up to 6 mm in diameter. Gallbladder: The gallbladder contains sludge and gallstones. Gallbladder wall thickening over 5 mm. Hyperechogenicity of surrounding pericholecystic fat. Gallbladder is mildly distended. Unable to assess sonographic Power's sign. Right kidney: Normal in appearance. No hydronephrosis. Ascites: None. IMPRESSION: 1. Findings highly suspicious for acute cholecystitis as seen on CT. Surgical consultation recommended. 2. Hepatic steatosis. The report will be called/faxed according to standard departmental protocol. Assessment & Plan 72-year-old male with acute cholecystitis, bilirubin downtrending, MRCP pending. Plan for laparoscopic cholecystectomy with possible cholangiogram, likely tomorrow If MRCP is negative, patient may have clear liquids Nothing by mouth after midnight The risks of the procedure were discussed yesterday to include but are not limited to bleeding, infection, damage to common bile duct or other structures, bile leak, retained stone, need for future more extensive surgeries, conversion to open, and the risks of anesthesia Appreciate medical management of this patient Preoperative risk assessment by medicine today please Surgery will follow
[2017-10-28] MEDS ORDERED: INDOMETHACIN 50 MG SUPP PR ONE ×2 (10:15→13:21)
--- NOTE | 2017-10-28 10:31 | Pharmacy Progress Note ---
Glycemic Control Intl Consult Date of Service Oct 28, 2017. Scope Glycemic Pharmacist consulted by Dr Resendiz on 10/27/17 for glycemic control and to write orders per [facility] inpatient glycemic control protocol Objective Weight (Kilograms): 106.300 Accuchecks BSG (last 24hrs): Test 10/27/17 16:25 10/27/17 19:36 10/27/17 20:10 10/27/17 20:44 Random Glucose 461 mg/dl (70-99) 418 mg/dl (70-99) Bedside Glucose 385 mg/dl (70-99) 395 mg/dl (70-99) Test 10/27/17 21:56 10/27/17 23:38 10/27/17 23:54 10/28/17 00:43 Bedside Glucose 400 mg/dl (70-99) 276 mg/dl (70-99) 288 mg/dl (70-99) Random Glucose 288 mg/dl (70-99) Test 10/28/17 01:31 10/28/17 02:31 10/28/17 03:40 10/28/17 04:13 Bedside Glucose 292 mg/dl (70-99) 301 mg/dl (70-99) 312 mg/dl (70-99) Random Glucose 312 mg/dl (70-99) Test 10/28/17 04:30 10/28/17 07:32 10/28/17 08:27 10/28/17 09:50 Bedside Glucose 292 mg/dl (70-99) 253 mg/dl (70-99) 199 mg/dl (70-99) Random Glucose 264 mg/dl (70-99) Laboratory Data (last 24hrs) Test 10/27/17 16:25 10/27/17 20:10 10/27/17 23:54 10/28/17 04:13 Anion Gap 15.0 mmol/L 11.0 mmol/L 6.0 mmol/L 8.0 mmol/L BUN/Creatinine Ratio 24.3 24.9 24.1 22.1 Blood Urea Nitrogen 50 mg/dl 47 mg/dl 43 mg/dl 39 mg/dl Creatinine 2.04 mg/dl 1.87 mg/dl 1.79 mg/dl 1.77 mg/dl Potassium Level 3.8 mmol/L 3.7 mmol/L 3.7 mmol/L 3.6 mmol/L Sodium Level 131 mmol/L 134 mmol/L 135 mmol/L 137 mmol/L White Blood Count 11.57 K/uL 10.34 K/uL 9.34 K/uL Red Blood Count 4.55 M/uL Hemoglobin 14.4 g/dL Hematocrit 41.1 % Mean Corpuscular Volume 90.3 fL Mean Corpuscular Hemoglobin 31.6 pg Mean Corpuscular Hemoglobin Concent 35.0 g/dl Platelet Count 254 K/uL Mean Platelet Volume 10.1 fL Neutrophils (%) (Auto) 86.1 % Lymphocytes (%) (Auto) 7.3 % Monocytes (%) (Auto) 5.9 % Eosinophils (%) (Auto) 0.2 % Basophils (%) (Auto) 0.1 % Neutrophils # (Auto) 9.96 K/uL Lymphocytes # (Auto) 0.85 K/uL Monocytes # (Auto) 0.68 K/uL Eosinophils # (Auto) 0.02 K/uL Basophils # (Auto) 0.01 K/uL Hemoglobin A1c 11.6 % Test 10/28/17 08:27 Anion Gap 8.0 mmol/L BUN/Creatinine Ratio 23.4 Blood Urea Nitrogen 37 mg/dl Creatinine 1.57 mg/dl Potassium Level 3.6 mmol/L Sodium Level 136 mmol/L HbA1c Test 10/28/17 04:13 Hemoglobin A1c 11.6 % (4.5-5.6) H Recent Pertinent Medications Outpatient Anti-diabetic Regimen: * Lantus 80-90 units SQ daily + Novolog SSI with meals Risk Factors for Insulin Resistance: * Infection: acute cholecystitis * IVF: Protonix infusion Assessment & Plan ASSESSMENT: * 72 yr old T2DM male admitted with acute cholecystitis. Patient is currently NPO for possible laparoscopic cholecystitis on 10/29. * Acute on chronic kidney disease. h/o CKD III. Scr improving (2.04 -> 1.77 mg/ dL) * Patient was initiated on IV insulin infusion last evening for severe hyperglycemia due to non-compliance (no insulin administered 10/23-10/27). Patient reported omitting doses because of decreased appetite with abdominal discomfort and nausea. * IV insulin is currently infusing at 3.8 units/hr (91 units/day). This is equivalent to home basal dosing. * Discussed continuation of insulin infusion vs. transition to SQ basal/bolus regimen with the need for adequate glycemic control for upcoming procedure. It was decided patient will remain on infusion until post-procedure. PLAN FOR INPATIENT GLYCEMIC CONTROL: * Continue IV insulin infusion per protocol * Goal Range 140 - 180 mg/dl * Please note that the plan above was derived based on current level of insulin resistance and hospital stress. These recommendations are appropriate for inpatient admission only. Plan of care upon discharge will need to be reassessed to avoid potential outpatient hypo/hyperglycemia. Thank you.
--- NOTE | 2017-10-28 10:55 | Gastrointestinal Consultation ---
Gastrointestinal Consultation Date of Consultation: Oct 28, 2017 Attending Physician: Jose Reyes Consulting Physician: Breana Keating Reason for Consultation: Possible choledocholithiasis History of Present Illness Patient is a 72 year old male who was seen for possible choledocholithiasis. He presented to ED yesterday w c/o upper abd pain since last , associated w nausea, decreased appetite. He hasn't been taking his insulin as he wasn't eating much and his BSG on arrival yesterday was noted to be 400s, was having DKA. A1C 08/2016 was 11.5. He reports also a one episode of black stool. But H/ H had been stable : . Labs showed mild leukocytosis WBC 11, LFTs are up: Tbili 1.9, Dbili 1.0, AST 94, ALT 46, ALK phos 106. He had CT abd/pelvis, gallbladder u/s which showed gallstones w gallbladder thickening w no signs of intrahepatic biliary dilation. CBD 6mm. He did have MRCP this AM which showed + choledocholithiasis w largest caculus measuring 4.5mm, some smaller ones possibly present. Equivocal cholecystitis. Dr. Gauthier (Surgery) on the case, planning for lap cholecystectomy tomorrow. Pt afebrile overnight. He denies any abd pain, n/v this AM. His repeat LFTs this AM showed normalizing enzymes. Overnight he had been made NPO and also started on Ertapenem IV antibx. Past Medical/Surgical History Medical Problems: (1) GI bleed Status: Acute (2) Type 2 diabetes mellitus Status: Chronic Past Medical History: DM II, HTN, HLD, CKD III, Myasthenia Gravis. Past Surgical History: Hernia repair, hemorrhoidectomy, eyelid surgery Family History Diabetes mellitus Hypertension Social History Smoking Status: Current Some Day Smoker (cigars) Drug Use: none Marital Status: Housing Status: lives with family Occupation Status: employed Allergies Coded Allergies: No Known Allergies (Unverified , 10/27/17) Current Medications Home Meds and Scripts Medications Dose Route/Sig Max Daily Dose Days Date Category Dose Instructions Vitamin B12 (Cyanocobalamin) 1,000 Mcg Tab 1,000 Mg PO DAILY 10/27/17 Reported Preservision/Lutein (Multiple Vitamins W/ Minerals) 1 Cap Cap 2 Cap PO DAILY 10/27/17 Reported Novolog Flexpen (Insulin Aspart) 100 Units/Ml Inj 80 Units SC UD 10/27/17 Reported PER MED LIST: INJECT 80 UNITS PER DAY, SLIDING SCALE. Naprosyn (Naproxen) 500 Mg Tab 500 Mg PO BID PRN 10/27/17 Reported DO NOT TAKE WITH IBUPROFEN* Lantus Solostar (Insulin Glargine) 100 Unit/Ml Inj 80-90 Units SC DAILY 10/27/17 Reported Motrin (Ibuprofen) 600 Mg Tab 600 Mg PO QID PRN 10/27/17 Reported DO NOT TAKE WITH NAPROXEN* Hydrochlorothiazide 25 Mg Tab 25 Mg PO DAILY 10/27/17 Reported Gabapentin 600 Mg Tab 600 Mg PO HS 10/27/17 Reported Tricor (Fenofibrate) 145 Mg Tab 145 Mg PO DAILY 10/27/17 Reported Vitamin D (Cholecalciferol) 1,000 Unit Tab 1,000 Units PO DAILY 10/27/17 Reported Cialis (Tadalafil) 20 Mg Tab 20 Mg PO UD PRN 10/27/17 Reported PER MED LIST: "TAKE 1 TABLET 1 HOUR BEFORE ACTIVITY NEEDED" Lotensin (Benazepril HCl) 40 Mg Tab 40 Mg PO DAILY 10/27/17 Reported Lipitor (Atorvastatin Calcium) 80 Mg Tab 80 Mg PO DAILY 10/27/17 Reported Aspirin 81 Mg Tab 81 Mg PO DAILY 10/27/17 Reported Review of Systems Constitutional: No fever, No chills Eyes: No worsening of vision, No eye pain ENT: No hearing loss, No unusual epistaxis Respiratory: No cough, No shortness of breath Cardiac: No chest pain Abdomen: + pain (resolved this AM), + nausea, No vomiting, No GI bleeding Musculoskeletal: No joint pain, No muscle pain Male : No dysuria, No urinary frequency Neuro: No memory loss, No weakness Psych: No depression symptoms, No anxiety Heme: No abnormal bleeding/bruising, No night sweats Endo: No fatigue Skin: No rash, No itch, No jaundice Physical Exam Date Time Temp Pulse Resp B/P (MAP) Pulse Ox O2 Delivery O2 Flow Rate FiO2 10/28/17 08:29 37.0 82 20 136/79 (98) 94 10/28/17 04:00 95 Room Air 10/28/17 03:35 37.2 78 17 143/72 (95) 95 Room Air 10/28/17 00:01 96 Room Air 10/27/17 23:33 36.7 87 18 143/74 (97) 98 Room Air 10/27/17 20:50 37.4 96 16 154/80 96 Room Air 10/27/17 20:12 90 15 10/27/17 20:00 149/78 10/27/17 19:42 92 18 96 10/27/17 19:37 169/84 10/27/17 19:11 102 20 97 10/27/17 19:00 153/89 10/27/17 18:41 95 18 96 10/27/17 17:41 93 20 10/27/17 17:36 168/86 10/27/17 17:30 93 19 10/27/17 17:00 91 13 10/27/17 16:30 94 16 10/27/17 16:20 93 10/27/17 16:19 37.2 102 19 154/73 97 Room Air 10/27/17 16:18 97 Room Air 10/27/17 16:05 154/73 General Appearance: WD/WN, no apparent distress Eyes: normal inspection, PERRL, EOMI ENT: hearing grossly normal, pharynx normal Neck: supple, no JVD, trachea midline Respiratory/Chest: normal breath sounds, no respiratory distress, no accessory muscle use Cardiovascular: regular rate, rhythm, no gallop, no murmur Abdomen: normal bowel sounds, non tender, soft Extremities: normal inspection, no pedal edema, no calf tenderness Neurologic/Psych: alert, normal mood/affect, oriented x 3 Skin: normal color, no jaundice, no rash Laboratory Results Last 24 Hours Test 10/27/17 16:25 10/27/17 19:36 10/27/17 19:50 10/27/17 20:10 White Blood Count 11.57 K/uL 10.34 K/uL Red Blood Count 4.55 M/uL 4.38 M/uL Hemoglobin 14.4 g/dL 13.8 g/dL Hematocrit 41.1 % 39.5 % Mean Corpuscular Volume 90.3 fL 90.2 fL Mean Corpuscular Hemoglobin 31.6 pg 31.5 pg Mean Corpuscular Hemoglobin Concent 35.0 g/dl 34.9 g/dl Platelet Count 254 K/uL 257 K/uL Mean Platelet Volume 10.1 fL 10.0 fL Neutrophils (%) (Auto) 86.1 % Lymphocytes (%) (Auto) 7.3 % Monocytes (%) (Auto) 5.9 % Eosinophils (%) (Auto) 0.2 % Basophils (%) (Auto) 0.1 % Neutrophils # (Auto) 9.96 K/uL Lymphocytes # (Auto) 0.85 K/uL Monocytes # (Auto) 0.68 K/uL Eosinophils # (Auto) 0.02 K/uL Basophils # (Auto) 0.01 K/uL RDW Standard Deviation 43.2 fL 43.5 fL RDW Coefficient of Variation 13.2 % 13.2 % Immature Granulocyte % (Auto) 0.4 % Immature Granulocyte # (Auto) 0.05 K/uL Prothrombin Time 10.0 SECONDS Prothromb Time International Ratio 1.0 Activated Partial Thromboplast Time 30.8 SECONDS Partial Thromboplastin Ratio 1.2 Sodium Level 131 mmol/L 134 mmol/L Potassium Level 3.8 mmol/L 3.7 mmol/L Chloride Level 94 mmol/L 100 mmol/L Carbon Dioxide Level 22 mmol/L 23 mmol/L Anion Gap 15.0 mmol/L 11.0 mmol/L Blood Urea Nitrogen 50 mg/dl 47 mg/dl Creatinine 2.04 mg/dl 1.87 mg/dl Est Creatinine Clear Calc Drug Dose 42.5 ml/min 46.4 ml/min Estimated GFR () 36.6 40.7 Estimated GFR (Non- 31.6 35.1 BUN/Creatinine Ratio 24.3 24.9 Random Glucose 461 mg/dl 418 mg/dl Calcium Level 9.0 mg/dl 8.5 mg/dl Magnesium Level 2.8 mg/dl Total Bilirubin 1.9 mg/dl Direct Bilirubin 1.0 mg/dl Aspartate Amino Transf (AST/SGOT) 94 U/L Alanine Aminotransferase (ALT/SGPT) 46 U/L Alkaline Phosphatase 106 U/L Troponin I < 0.015 ng/ml Total Protein 7.5 gm/dl Albumin 2.9 gm/dl Lipase 142 U/L Beta-Hydroxybutyric Acid 27.22 mg/dL 24.42 mg/dL Bedside Glucose 385 mg/dl Urine Color YELLOW Urine Appearance CLOUDY Urine pH 5.0 Urine Specific [place] 1.033 Urine Protein NEG Urine Glucose (UA) 3+ Urine Ketones 1+ Urine Occult Blood 3+ Urine Nitrite NEG Urine Bilirubin NEG Urine Urobilinogen NEG Urine Leukocyte Esterase NEG Urine WBC (Auto) 1-5 /hpf Urine RBC (Auto) 5-10 /hpf Urine Hyaline Casts (Auto) 1-5 /lpf Urine Epithelial Cells (Auto) 0-5 /lpf Urine Bacteria (Auto) NEG Venous Blood pH 7.43 Phosphorus Level 2.9 mg/dl Hepatitis C Antibody Screen NEG Test 10/27/17 20:44 10/27/17 21:56 10/27/17 23:38 10/27/17 23:54 Bedside Glucose 395 mg/dl 400 mg/dl 276 mg/dl Venous Blood pH 7.44 Sodium Level 135 mmol/L Potassium Level 3.7 mmol/L Chloride Level 102 mmol/L Carbon Dioxide Level 27 mmol/L Anion Gap 6.0 mmol/L Blood Urea Nitrogen 43 mg/dl Creatinine 1.79 mg/dl Est Creatinine Clear Calc Drug Dose 47.0 ml/min Estimated GFR () 42.9 Estimated GFR (Non- 37.0 BUN/Creatinine Ratio 24.1 Random Glucose 288 mg/dl Calcium Level 8.5 mg/dl Phosphorus Level 2.3 mg/dl Troponin I < 0.015 ng/ml Test 10/28/17 00:43 10/28/17 01:31 10/28/17 02:31 10/28/17 03:40 Bedside Glucose 288 mg/dl 292 mg/dl 301 mg/dl 312 mg/dl Test 10/28/17 04:13 10/28/17 04:30 10/28/17 06:17 10/28/17 07:32 White Blood Count 9.34 K/uL Red Blood Count 4.10 M/uL Hemoglobin 12.7 g/dL Hematocrit 37.0 % Mean Corpuscular Volume 90.2 fL Mean Corpuscular Hemoglobin 31.0 pg Mean Corpuscular Hemoglobin Concent 34.3 g/dl RDW Standard Deviation 43.5 fL RDW Coefficient of Variation 13.2 % Platelet Count 247 K/uL Mean Platelet Volume 9.6 fL Venous Blood pH 7.42 Sodium Level 137 mmol/L Potassium Level 3.6 mmol/L Chloride Level 103 mmol/L Carbon Dioxide Level 26 mmol/L Anion Gap 8.0 mmol/L Blood Urea Nitrogen 39 mg/dl Creatinine 1.77 mg/dl Est Creatinine Clear Calc Drug Dose 47.5 ml/min Estimated GFR () 43.5 Estimated GFR (Non- 37.5 BUN/Creatinine Ratio 22.1 Random Glucose 312 mg/dl Estimated Average Glucose 286 mg/dl Hemoglobin A1c 11.6 % Calcium Level 8.0 mg/dl Phosphorus Level 2.1 mg/dl Beta-Hydroxybutyric Acid 3.33 mg/dL Bedside Glucose 292 mg/dl 294 mg/dl 253 mg/dl Test 10/28/17 08:27 10/28/17 08:36 10/28/17 09:50 Venous Blood pH 7.46 Sodium Level 136 mmol/L Potassium Level 3.6 mmol/L Chloride Level 104 mmol/L Carbon Dioxide Level 24 mmol/L Anion Gap 8.0 mmol/L Blood Urea Nitrogen 37 mg/dl Creatinine 1.57 mg/dl Est Creatinine Clear Calc Drug Dose 53.6 ml/min Estimated GFR () 50.3 Estimated GFR (Non- 43.4 BUN/Creatinine Ratio 23.4 Random Glucose 264 mg/dl Calcium Level 8.5 mg/dl Phosphorus Level 1.8 mg/dl Total Bilirubin 0.7 mg/dl Direct Bilirubin 0.3 mg/dl Aspartate Amino Transf (AST/SGOT) 24 U/L Alanine Aminotransferase (ALT/SGPT) 40 U/L Alkaline Phosphatase 96 U/L Total Protein 6.7 gm/dl Albumin 2.5 gm/dl Bedside Glucose 276 mg/dl 199 mg/dl Impression Patient is a 72 year old male who presented with about 1 week long upper abd pain, nausea, elevated LFTs, imaging studies consistent w acute cholecystitis w choledocholithiasis. Plan - NPO for ERCP in OR by Dr. Lind this afternoon. I have reviewed w pt and his dght ERCP details including risk for infection, bleeding, pancreatitis. - Surgery to follow for lap cholecystectomy - Continue Ertapenem IV for now. - Blood sugar control per primary team. I performed a history and physical examination of the patient, including specifically on physical exam - abdomen is soft.I have discussed the patient's management with Kori. Please refer to the JOB DEVELOPER's note for the documented findings and plan of care. Patient is 72 years old male presented with abdominal pain, found to have abnormal LFTs, sono showed acute cholecystitis with CBD of 6mm. MRCP showed few small stones in the CBD. On exam his abdomen is nontender. Will plan for ERCP today for stone removal. Risk, benefit and alternatives were explained to the patient including risk of bleeding, perforation and pancreatitis, he understood and agreed. Continue ABx as per surgery. Lap Juliet to follow.
--- NOTE | 2017-10-28 11:23 | Progress Note ---
Progress Note Date of Service Oct 28, 2017. Progress Note Patient evaluated for ERCP today and Laparoscopic Cholecystectomy tomorrow. PMH is remarkable for Myasthenia Gravis but the symptoms were limited to the eyelids and after blepharoplasty the patient finds no need for his [place]. He experiences no exertional weakness. He also has insulin dependent DM and admits to poor control and that he does not check his BSG. On admission his BSG was over 400, this morning on his AM labs it was in the 260s. Labs and studies were reviewed. Airway exam was reassuring. Risks and benefits of GA for both procedures discussed with the patient. Given the very limited degree of his MG symptoms and the lack of requirement for acetylcholinesterase inhibitors, I do not think he presents a markedly elevated risk for post op respiratory failure. We would like to see tighter BSG control prior to his cholecystectomy, ideally with BSG <200. It appears he is trending down towards that goal, and we appreciate the excellent medical management of the primary team in this regard.
[2017-10-28 12:22] LABS: CALCIUM 8.5 mg/dl (8.5-10.1); CREATININE 1.57 mg/dl (0.60-1.40); PHOSPHORUS 1.9 mg/dl (2.5-4.9); POTASSIUM 3.7 mmol/L (3.5-5.1)
[2017-10-28] MEDS ORDERED: LIDOCAINE HCL 2% 2 ML VIAL (20MG/ML) ONE (13:20)
[2017-10-28] MEDS ORDERED: MIDAZOLAM HCL 1 MG/ML 2ML VIAL ONE (13:20)
[2017-10-28] MEDS ORDERED: DEXAMETHASONE SOD INJ 4 MG/ML VIAL ONE ×2 (13:20→17:31)
[2017-10-28] MEDS ORDERED: FENTANYL CITRATE INJ 50 MCG/1 ML 2 ML VIAL ONE ×3 (13:20→18:24)
[2017-10-28] MEDS ORDERED: NEOSTIGMINE METHYLSULFATE 5 MG/5 ML SYR ONE (13:20)
[2017-10-28] MEDS ORDERED: ONDANSETRON INJ 2 MG/ML 2 ML VIAL ONE (13:20)
[2017-10-28] MEDS ORDERED: BUPIVACAINE 0.5 % 5 MG/1 ML MPF 30ML VIAL ONE (13:20)
[2017-10-28] MEDS ORDERED: PROPOFOL IV EMULSION 10 MG/ML 20 ML VIAL IV ONE (13:20)
[2017-10-28] MEDS ORDERED: GLYCOPYRROLATE INJ 0.2 MG/ML VIAL ONE (13:20)
[2017-10-28] MEDS ORDERED: ROCURONIUM BROMIDE 10 MG/ML 5 ML VIAL IV ONE ×7 (13:23→16:02)
--- NOTE | 2017-10-28 13:23 | History & Physical Bridge Note ---
H&P Re-Evaluation Bridge Note: I have examined the patient, reviewed the History & Physical and in the interval since the performance of the History & Physical I have noted the following changes of clinical significance: No changes noted Stable for ERCP.
[2017-10-28] MEDS ORDERED: EpHEDrine SULFATE INJ 50 MG/ML AMP IV PRN (13:45)
[2017-10-28] MEDS ORDERED: FENTANYL CITRATE INJ 50 MCG/1 ML 2 ML VIAL IV PRN (13:45)
[2017-10-28] MEDS ORDERED: ATROPINE SULFATE 0.1 MG/ML 5ML SYR IV PRN (13:45)
[2017-10-28] MEDS ORDERED: HYDROmorphone INJ 1 MG/ML SYR IV PRN (13:45)
[2017-10-28] MEDS ORDERED: ONDANSETRON INJ 2 MG/ML 2 ML VIAL IV PRN ×2 (13:45→18:00)
[2017-10-28] MEDS ORDERED: ESMOLOL HCL 10 MG/ML 10 ML VIAL ONE (14:14)
--- NOTE | 2017-10-28 14:43 | Progress Note ---
Subjective Date of Service: Oct 28, 2017. Subjective Pt evaluation today including: conversation w/ patient, physical exam, lab review, review of studies, review of inpatient medication list Pain: no pain PO Intake: NPO Voiding: no voiding problems patient resting in bed prior to ERCP had MRCP that showed a common bile duct stone no pain, no nausea or vomiting reviewed labs, Cr down to 0.5, LFT normal, WBC normal appreciate recommendations from general surgery and gastroenterology Problem List Medical Problems: (1) GI bleed Status: Acute (2) Type 2 diabetes mellitus Status: Chronic Review of Systems Constitutional: + weakness, + fatigue Abdomen: + pain (mild RUQ) All Other Systems: Reviewed and Negative Medications Current Inpatient Medications Medications (Trade) Dose Ordered Sig/Fer Route Start Time Stop Time Status Last Admin Dose Admin Acetaminophen (Tylenol Tab) 650 mg Q4H PRN PO 10/27/17 19:15 11/26/17 19:14 Al Hydrox/Mg Hydrox/Simethicone (Maalox Max Susp) 15 ml Q4H PRN PO 10/27/17 19:15 11/26/17 19:14 Magnesium Hydroxide (Milk Of Magnesia Susp) 30 ml Q12H PRN PO 10/27/17 19:15 11/26/17 19:14 Ondansetron HCl (Zofran Inj) 4 mg Q6H PRN IV 10/27/17 19:15 11/26/17 19:14 Polyethylene (Miralax Powder Packet) 17 gm DAILY PRN PO 10/27/17 19:15 11/26/17 19:14 Insulin Aspart (novoLOG ASPART) SLIDING SCALE [facility] 10/27/17 21:00 11/26/17 20:59 Miscellaneous Information (Consult Glycemic Management Pharmacy) 1 ea UD PRN N/A 10/27/17 19:15 11/26/17 19:14 Morphine Sulfate (MoRPHine SULFATE INJ) 2 mg Q3H PRN IV 10/27/17 19:45 11/10/17 19:44 Morphine Sulfate (MoRPHine SULFATE INJ) 4 mg Q3H PRN IV 10/27/17 19:45 11/10/17 19:44 Ertapenem 1 gm/ Sodium Chloride 50 ml @ 120 mls/hr Q24H IV 10/27/17 21:00 11/06/17 20:59 10/27/17 22:05 120 MLS/HR Hydralazine HCl (HydrALAZINE INJ) 10 mg Q6 PRN IV. 10/27/17 20:00 11/26/17 19:59 Pantoprazole Sodium 40 mg/ Dextrose 100 ml @ 20 mls/hr Q5H IV 10/27/17 22:00 11/26/17 21:59 10/28/17 08:46 20 MLS/HR Insulin Human Regular 250 units/ Sodium Chloride 252.5 ml @ 0 mls/hr Q24H IV 10/27/17 21:15 11/26/17 21:14 10/27/17 22:19 4 MLS/HR Potassium Chloride/Sodium Chloride 1,000 ml @ 125 mls/hr Q8H IV 10/28/17 03:30 11/27/17 03:29 10/28/17 13:02 125 MLS/HR Fentanyl Citrate (Fentanyl Inj) 25 mcg Q5M PRN IV 10/28/17 13:45 10/28/17 18:00 Hydromorphone HCl (Dilaudid Inj) 0.5 mg Q5M PRN IV 10/28/17 13:45 10/28/17 17:00 Ondansetron HCl (Zofran Inj) 4 mg ONE PRN IV 10/28/17 13:45 10/28/17 17:00 Ephedrine Sulfate (EpHEDrine SULFATE INJ) 5 mg Q5M PRN IV 10/28/17 13:45 10/28/17 17:00 Atropine Sulfate (Atropine Sulfate 0.1mg/ml Inj) 0.5 mg Q1M PRN IV 10/28/17 13:45 10/28/17 18:00 Objective Vital Signs Date Time Temp Pulse Resp B/P (MAP) Pulse Ox O2 Delivery O2 Flow Rate FiO2 10/28/17 13:07 37.0 82 16 126/71 (89) 98 Room Air 10/28/17 12:00 Room Air 10/28/17 11:52 36.9 76 20 148/74 (98) 96 Room Air 10/28/17 08:29 37.0 82 20 136/79 (98) 94 10/28/17 08:00 Room Air 10/28/17 04:00 95 Room Air 10/28/17 03:35 37.2 78 17 143/72 (95) 95 Room Air 10/28/17 00:01 96 Room Air 10/27/17 23:33 36.7 87 18 143/74 (97) 98 Room Air 10/27/17 20:50 37.4 96 16 154/80 96 Room Air 10/27/17 20:12 90 15 10/27/17 20:00 149/78 10/27/17 19:42 92 18 96 10/27/17 19:37 169/84 10/27/17 19:11 102 20 97 10/27/17 19:00 153/89 10/27/17 18:41 95 18 96 10/27/17 17:41 93 20 10/27/17 17:36 168/86 10/27/17 17:30 93 19 10/27/17 17:00 91 13 10/27/17 16:30 94 16 10/27/17 16:20 93 10/27/17 16:19 37.2 102 19 154/73 97 Room Air 10/27/17 16:18 97 Room Air 10/27/17 16:05 154/73 Physical Exam General Appearance: WD/WN, no apparent distress Eyes: normal inspection, EOMI, sclerae normal ENT: normal ENT inspection, hearing grossly normal, pharynx normal Neck: supple, no adenopathy, no JVD, trachea midline Respiratory/Chest: chest non-tender, lungs clear, normal breath sounds, no respiratory distress, no accessory muscle use Cardiovascular: regular rate, rhythm, no edema, no gallop, no JVD, no murmur Abdomen: normal bowel sounds, soft, no organomegaly, + tenderness (RUQ, mild) Extremities: normal range of motion, non-tender, normal inspection, no pedal edema, no calf tenderness, pelvis stable Neurologic/Psychiatric: residential manager II-XII nml as tested, no motor/sensory deficits, alert, normal mood/affect, oriented x 3 Skin: normal color, warm/dry, no rash Laboratory Results MRCP IMPRESSION: 1. Evidence of acute cholecystitis with cholelithiasis, gallbladder wall thickening, and gallbladder wall edema. Mild inflammatory changes are also present within the pericholecystic fat 2. Choledocholithiasis. There is a 4.5 mm common bile duct calculus. Additional smaller calculi are suspected. There is no significant ductal dilatation. Last 24 Hours Test 10/27/17 16:25 10/27/17 19:36 10/27/17 19:50 10/27/17 20:10 White Blood Count 11.57 K/uL 10.34 K/uL Red Blood Count 4.55 M/uL 4.38 M/uL Hemoglobin 14.4 g/dL 13.8 g/dL Hematocrit 41.1 % 39.5 % Mean Corpuscular Volume 90.3 fL 90.2 fL Mean Corpuscular Hemoglobin 31.6 pg 31.5 pg Mean Corpuscular Hemoglobin Concent 35.0 g/dl 34.9 g/dl Platelet Count 254 K/uL 257 K/uL Mean Platelet Volume 10.1 fL 10.0 fL Neutrophils (%) (Auto) 86.1 % Lymphocytes (%) (Auto) 7.3 % Monocytes (%) (Auto) 5.9 % Eosinophils (%) (Auto) 0.2 % Basophils (%) (Auto) 0.1 % Neutrophils # (Auto) 9.96 K/uL Lymphocytes # (Auto) 0.85 K/uL Monocytes # (Auto) 0.68 K/uL Eosinophils # (Auto) 0.02 K/uL Basophils # (Auto) 0.01 K/uL RDW Standard Deviation 43.2 fL 43.5 fL RDW Coefficient of Variation 13.2 % 13.2 % Immature Granulocyte % (Auto) 0.4 % Immature Granulocyte # (Auto) 0.05 K/uL Prothrombin Time 10.0 SECONDS Prothromb Time International Ratio 1.0 Activated Partial Thromboplast Time 30.8 SECONDS Partial Thromboplastin Ratio 1.2 Sodium Level 131 mmol/L 134 mmol/L Potassium Level 3.8 mmol/L 3.7 mmol/L Chloride Level 94 mmol/L 100 mmol/L Carbon Dioxide Level 22 mmol/L 23 mmol/L Anion Gap 15.0 mmol/L 11.0 mmol/L Blood Urea Nitrogen 50 mg/dl 47 mg/dl Creatinine 2.04 mg/dl 1.87 mg/dl Est Creatinine Clear Calc Drug Dose 42.5 ml/min 46.4 ml/min Estimated GFR () 36.6 40.7 Estimated GFR (Non- 31.6 35.1 BUN/Creatinine Ratio 24.3 24.9 Random Glucose 461 mg/dl 418 mg/dl Calcium Level 9.0 mg/dl 8.5 mg/dl Magnesium Level 2.8 mg/dl Total Bilirubin 1.9 mg/dl Direct Bilirubin 1.0 mg/dl Aspartate Amino Transf (AST/SGOT) 94 U/L Alanine Aminotransferase (ALT/SGPT) 46 U/L Alkaline Phosphatase 106 U/L Troponin I < 0.015 ng/ml Total Protein 7.5 gm/dl Albumin 2.9 gm/dl Lipase 142 U/L Beta-Hydroxybutyric Acid 27.22 mg/dL 24.42 mg/dL Bedside Glucose 385 mg/dl Urine Color YELLOW Urine Appearance CLOUDY Urine pH 5.0 Urine Specific [place] 1.033 Urine Protein NEG Urine Glucose (UA) 3+ Urine Ketones 1+ Urine Occult Blood 3+ Urine Nitrite NEG Urine Bilirubin NEG Urine Urobilinogen NEG Urine Leukocyte Esterase NEG Urine WBC (Auto) 1-5 /hpf Urine RBC (Auto) 5-10 /hpf Urine Hyaline Casts (Auto) 1-5 /lpf Urine Epithelial Cells (Auto) 0-5 /lpf Urine Bacteria (Auto) NEG Venous Blood pH 7.43 Phosphorus Level 2.9 mg/dl Hepatitis C Antibody Screen NEG Test 10/27/17 20:44 10/27/17 21:56 10/27/17 23:38 10/27/17 23:54 Bedside Glucose 395 mg/dl 400 mg/dl 276 mg/dl Venous Blood pH 7.44 Sodium Level 135 mmol/L Potassium Level 3.7 mmol/L Chloride Level 102 mmol/L Carbon Dioxide Level 27 mmol/L Anion Gap 6.0 mmol/L Blood Urea Nitrogen 43 mg/dl Creatinine 1.79 mg/dl Est Creatinine Clear Calc Drug Dose 47.0 ml/min Estimated GFR () 42.9 Estimated GFR (Non- 37.0 BUN/Creatinine Ratio 24.1 Random Glucose 288 mg/dl Calcium Level 8.5 mg/dl Phosphorus Level 2.3 mg/dl Troponin I < 0.015 ng/ml Test 10/28/17 00:43 10/28/17 01:31 10/28/17 02:31 10/28/17 03:40 Bedside Glucose 288 mg/dl 292 mg/dl 301 mg/dl 312 mg/dl Test 10/28/17 04:13 10/28/17 04:30 10/28/17 06:17 10/28/17 07:32 White Blood Count 9.34 K/uL Red Blood Count 4.10 M/uL Hemoglobin 12.7 g/dL Hematocrit 37.0 % Mean Corpuscular Volume 90.2 fL Mean Corpuscular Hemoglobin 31.0 pg Mean Corpuscular Hemoglobin Concent 34.3 g/dl RDW Standard Deviation 43.5 fL RDW Coefficient of Variation 13.2 % Platelet Count 247 K/uL Mean Platelet Volume 9.6 fL Venous Blood pH 7.42 Sodium Level 137 mmol/L Potassium Level 3.6 mmol/L Chloride Level 103 mmol/L Carbon Dioxide Level 26 mmol/L Anion Gap 8.0 mmol/L Blood Urea Nitrogen 39 mg/dl Creatinine 1.77 mg/dl Est Creatinine Clear Calc Drug Dose 47.5 ml/min Estimated GFR () 43.5 Estimated GFR (Non- 37.5 BUN/Creatinine Ratio 22.1 Random Glucose 312 mg/dl Estimated Average Glucose 286 mg/dl Hemoglobin A1c 11.6 % Calcium Level 8.0 mg/dl Phosphorus Level 2.1 mg/dl Beta-Hydroxybutyric Acid 3.33 mg/dL Bedside Glucose 292 mg/dl 294 mg/dl 253 mg/dl Test 10/28/17 08:27 10/28/17 08:36 10/28/17 09:50 10/28/17 10:59 Venous Blood pH 7.46 Sodium Level 136 mmol/L Potassium Level 3.6 mmol/L Chloride Level 104 mmol/L Carbon Dioxide Level 24 mmol/L Anion Gap 8.0 mmol/L Blood Urea Nitrogen 37 mg/dl Creatinine 1.57 mg/dl Est Creatinine Clear Calc Drug Dose 53.6 ml/min Estimated GFR () 50.3 Estimated GFR (Non- 43.4 BUN/Creatinine Ratio 23.4 Random Glucose 264 mg/dl Calcium Level 8.5 mg/dl Phosphorus Level 1.8 mg/dl Total Bilirubin 0.7 mg/dl Direct Bilirubin 0.3 mg/dl Aspartate Amino Transf (AST/SGOT) 24 U/L Alanine Aminotransferase (ALT/SGPT) 40 U/L Alkaline Phosphatase 96 U/L Total Protein 6.7 gm/dl Albumin 2.5 gm/dl Bedside Glucose 276 mg/dl 199 mg/dl 196 mg/dl Test 10/28/17 11:47 10/28/17 12:00 10/28/17 13:03 Venous Blood pH 7.43 Sodium Level 138 mmol/L Potassium Level 3.7 mmol/L Chloride Level 105 mmol/L Carbon Dioxide Level 26 mmol/L Anion Gap 7.0 mmol/L Blood Urea Nitrogen 35 mg/dl Creatinine 1.57 mg/dl Est Creatinine Clear Calc Drug Dose 53.6 ml/min Estimated GFR () 50.3 Estimated GFR (Non- 43.4 BUN/Creatinine Ratio 22.0 Random Glucose 198 mg/dl Calcium Level 8.5 mg/dl Phosphorus Level 1.9 mg/dl Bedside Glucose 194 mg/dl 179 mg/dl Assessment and Plan Mr. Hardy is a 72 y/o male with PMHx of T2DM, HTN, HLD, CKD Stage III, and Myasthenia Gravis who prevents to the ED from his PCP for acute onset upper abdominal pain that started today. CT reveals acute cholecystitis and presence of DKA. Acute Cholecystitis: less pain, afebrile, WBC normal continue Invanz and IV fluids, NPO plan for cholecystectomy tomorrow Choledocholithiasis: 4.5mm stone in CBD on MRCP for ERCP today for removal no pain LFT normalizing DM type II with DKA on admission sugars responding well to insulin drip, below 200 consistently normal anion gap d/w pharmacy, will continue insulin drip through tonight and tomorrow morning for adequate control will go to basal bolus dosing after surgery QT Prolongation: still with prolonged QT CKD Stage III: Cr down to 1.57 with IV fluids, adequate UO, continue to monitor Melena? Possible Upper GI Bleed: Hb down to 12.7 from 14.4, not a significant drop Protonix gtt Hold ASA given possible melena and possible surgical intervention HTN: - Hold HCTZ and Bonazepril and cover with Hydralazine PRN HLD: - Hold Atorvastatin and Tricor Myasthenia Gravis: STABLE - Patient reports he does not take Mestinon or Imuran anymore and denies recent myasthenia crises DVT Prophylaxis: SCDs Code Status: FULL RESUSCITATION
--- NOTE | 2017-10-28 15:54 | DIAGNOSTIC IMAGING REPORT ---
ERCP BILIARY DUCTAL HISTORY: 72 years-old Male ERCP TO BE DONE IN THE O.R. cholelithiasis with cholecystitis and choledocholithiasis. COMPARISON: MRCP 10/28/2017 at 9:17 AM TECHNIQUE: 2 spot fluoroscopic images of the right upper abdomen were obtained during ERCP utilizing ordered 418.1 seconds fluoroscopy time FINDINGS: Endoscope is noted within the region of the duodenum. Guidewire is seen looping within the region of the duodenum with distal tip projected caudally. No injection of contrast is seen into the biliary tree. No definite cholelithiasis or choledocholithiasis identified. The notes accompanying the study indicate that the procedure was unsuccessful. IMPRESSION: Fluoroscopic assistance as above. Please see procedural report for further details. The above report was generated using voice recognition software. It may contain grammatical, syntax or spelling errors. Electronically signed by: Cayetano Brady M.D. 10/28/2017 3:53 PM Dictated Date/Time: 10/28/2017 3:50 PM
[2017-10-28] MEDS ORDERED: CONRAY 60% 50 ML VIAL ONE (15:58)
--- NOTE | 2017-10-28 16:02 | GI REPORT ---
Procedure Date: 10/28/2017 1:19 PM Procedure: ERCP Indications: Abnormal MRCP, Preop exam: Laparoscopic cholecystectomy Medicines: General Anesthesia, Indomethacin 100 mg NC Complications: No immediate complications. Estimated blood loss: None Estimated Blood Loss: Estimated blood loss: none. Procedure: Pre-Anesthesia Assessment: - Prior to the procedure, a History and Physical was performed, and patient medications, allergies and sensitivities were reviewed. The patient's tolerance of previous anesthesia was reviewed. - ASA Grade Assessment: III - A patient with severe systemic disease. After obtaining informed consent, the scope was passed under direct vision. Throughout the procedure, the patient's blood pressure, pulse, and oxygen saturations were monitored continuously. The SCOPE was introduced through the mouth, with the intention of advancing to the bile ducts. The scope was advanced to the ventral duct alone before the procedure was aborted. Medications were given. The ERCP was unusually difficult due to challenging cannulation because of peridiverticular papilla. The patient tolerated the procedure well. Findings: The supervisor functional testing film was normal. The esophagus was successfully intubated under direct vision without detailed examination of the pharynx, larynx, and associated structures, and upper GI tract. The upper GI tract was grossly normal. The major papilla was on the rim of a large diverticulum. Bile was noted to freely flow from the papilla. Wire guided cannulation of the common bile duct was attempted with both the Stance FS Omni 35 sphincterotome and the Riseve RX 39 sphinterotome loaded with a 0.025 inch guidewire. Free cannulation of the bile duce could not be achieved. A 0.025 inch Jagwire was advanced into the pancreatic duct. An attempt was made to place a pancreatic stent, but access was lost and the stent could not be placed. Further attempts to place a guidewire in the pancreatic or biliary ducts were futile. Stance Acrobat 0.035 inch guidewire was passed into the ventral pancreatic duct. Impression: - The major papilla was on the rim of a diverticulum. - Failed ERCP Recommendation: - I discussed the case with Dr. Christo Gauthier. In view of the imaging findings of acute cholecystitis and the free flow of bile from the papilla, it was elected to proceed with laparoscopic cholecystectomy with OR cholangiography. If filling defects are noted, we will plan to transfer the patient for ERCP. Luca Lind M.D. Luca Lind MD 10/28/2017 4:02:40 PM This report has been signed electronically. Note Initiated On: 10/28/2017 1:19 PM I attest to the content of the Intraoperative Record and orders documented therein, exceptions below
--- NOTE | 2017-10-28 16:59 | DIAGNOSTIC IMAGING REPORT ---
CHOLANGIOGRAM O.R. HISTORY: 72 years-old Male CHOLANGIOGRAM cholelithiasis and choledocholithiasis COMPARISON: ERCP images 10/28/2017 at 2:36 PM, MRCP 10/28/2017 TECHNIQUE: 8 spot fluoroscopic images of the right upper quadrant of the abdomen were obtained utilizing 24.5 seconds fluoroscopy time. FINDINGS: Cholangiogram from what appears to be a percutaneous approach was obtained. There is cannulation of the cystic duct which is injected with contrast. Contrast flows from the common bile duct into the duodenum. No focal stricturing identified. A single filling defect is noted within the common bile duct. On the latter images, this finding appears to move cephalad. No additional filling defects or masses identified. Imaged intrahepatic biliary tree is unremarkable. IMPRESSION: Single filling defect of the common bile duct may reflect choledocholithiasis or air bubble. Please see procedural report for further details. The above report was generated using voice recognition software. It may contain grammatical, syntax or spelling errors. Electronically signed by: Cayetano Brady M.D. 10/28/2017 4:57 PM Dictated Date/Time: 10/28/2017 4:52 PM
[2017-10-28] MEDS ORDERED: GLUCAGON FOR INJ 1 MG VIAL ONE (17:26)
--- NOTE | 2017-10-28 17:38 | [facility] Post Operative Brief Note ---
Immediate Operative Summary Operative Date Oct 28, 2017. Pre-Operative Diagnosis Cholelithiasis with Choledocholithiasis, Acute Cholecystitis Post-Operative Diagnosis Cholelithiasis with Choledocholithiasis, acute cholecystitis Procedure(s) Performed Laparoscopic cholecystectomy with intraoperative cholangiogram Surgeon Dr. Gauthier Circuit Manager Surgeon(s) Vicki Jacobs PA-C Estimated Blood Loss 10ML Findings Consistent with Post-Op Diagnosis filling defect on cholangiogram Specimens A: Gallbladder and contents Drains None Anesthesia Type General Complication(s) none Disposition Accompanied Pt To Recover: no Disposition: Recovery Room / PACU
--- NOTE | 2017-10-28 17:53 | [facility] Operative Report ---
Operative Report Operative Date Oct 28, 2017. Pre-Operative Diagnosis Cholelithiasis with Choledocholithiasis, Acute Cholecystitis Post-Operative Diagnosis same Procedure(s) Performed Laparoscopic cholecystectomy with intraoperative cholangiogram Surgeon Dr. Gauthier Information Assurance Analyst Surgeon(s) Vicki Jacobs PA-C Estimated Blood Loss 10ML Findings Significantly inflamed gallbladder, aspirated upon entry. Window of safety obtained. Cholangiogram performed and showed filling defect. Gallbladder was friable and the dome tore spilling multiple stones which were all retrieved. Cystic duct was dilated and was stapled. Irrigated with 3 L of saline. Drain placed. Specimens A: Gallbladder and contents Drains 7 mm SAMMI drain Anesthesia GETA Complication(s) None Disposition Recovery Room / PACU Indications 72-year-old male admitted with acute cholecystitis, MRCP showed choledocholithiasis. ERCP was attempted by Dr. Lind, however he was unsuccessful in clearing the duct. After discussion of options we elected to proceed with colonoscopic cholecystectomy with intraoperative cholangiogram. The risks of the procedure were discussed, all questions were answered, and the patient agreed to proceed with surgery as planned. Description of Procedure The patient was properly identified, consented, and taken to the operating room where he was placed in the supine position. General endotracheal anesthesia was induced. SCDs and a safety belt were placed. The patient was receiving antibiotics on the floor. An ERCP was attempted by Dr. Lind, however he was unsuccessful in clearing the duct, please see his report for further details. After discussion we agreed that we should proceed with laparoscopic cholecystectomy with cholangiogram and if a filling defect was present then the patient would be transferred for advanced ERCP. The patient's abdomen was prepped and draped in the standard sterile fashion. A surgical timeout was performed and all parties were in agreement that this was the correct patient and procedure to be performed and we continued as planned. An incision was made superior and to the left of the umbilicus overlying the rectus muscle and the Veress needle was inserted. Saline drop test confirmed entry into the peritoneum. The abdomen was insufflated with carbon dioxide which the patient tolerated without incident. The abdomen was then entered using the Optiview technique and a 5 mm trocar. The laparoscope was inserted and no damage from initial trocar or Veress needle placement was noted, no gross abnormalities were noted within the 4 quadrants of the abdomen, except for a severely inflamed gallbladder. An 12 mm port was placed in the subxiphoid position and two 5 mm ports were then placed in the right subcostal position. The patient was placed in reverse Trendelenburg position and rotated towards the left. The gallbladder was severely inflamed and had multiple adhesions of the omentum. These were taken down bluntly. The gallbladder was aspirated to allow for easy retraction. It appeared to have empyema. The dome of the gallbladder was retracted towards the left upper quadrant and the infundibulum was retracted toward the right lower quadrant revealing Calot's triangle. The dome of the gallbladder was very friable and during the procedure it began to tear. Despite re-grasping it continued to tear and eventually multiple stones were spilled. These were retrieved at the conclusion of the case. Peritoneal attachments were taken down with electrocautery and blunt dissection. The cystic duct and artery were circumferentially dissected. A window of safety was obtained showing the cystic duct entering the gallbladder with no aberrant structures noted. The Alva cholangiocatheter was then used to perform an intraoperative cholangiogram which showed an obvious filling defect, but good filling of the duodenum and hepatic radicals with contrast. The patient had already received glucagon and we attempted to flush the stone however repeat cholangiogram confirmed the presence of the stone. Preoperatively we discussed the situation with GI, and the plan was that if there was a filling defect remaining we would transfer the patient to a tertiary center for advanced ERCP. Therefore we decided not to proceed with any type of common bile duct exploration. The cystic duct was dilated, and was divided with a 30 mm Endo LADONNA arias loaded stapler. The cystic artery was doubly clipped and divided. The gallbladder was then lifted off the gallbladder fossa with electrocautery and blunt dissection. The gallbladder was placed in an Endo Catch bag and removed through the subxiphoid port site, which had to be dilated to accommodate the large stones. The right upper quadrant was irrigated and hemostasis was found to be good. Multiple stones were retrieved and a total of 3 L of irrigation were used. It appeared that we had retrieved all the stones. A SAMMI drain was placed in the gallbladder fossa and exited through the right subcostal port site. This was secured into place with 3-0 nylon suture. The remaining 5 mm trochars were removed under direct visualization and the abdomen was allowed to collapse. The subxiphoid port site fascia was closed with running 0 Vicryl suture. The wound was irrigated, and the skin of all ports was closed with 4-0 Monocryl subcuticular sutures. Dermabond was placed over the wounds, and a drain sponge was placed. The patient was extubated in the operating room and taken to the PACU where he recovered without apparent incident. All sponge, instrument and needle counts were correct at the conclusion of the procedure. The patient tolerated the procedure well. The physician's assistant professor of biology was present and scrubbed for the entire surgery. She was critical in positioning the patient, prepping and draping, entry into the abdomen, retraction and exposure the gallbladder, removal of the gallbladder and closure of the incisions, and placement of the dressings. I attest to the content of the Intraoperative Record and any orders documented therein. Any exceptions are noted below.
[2017-10-28] MEDS ORDERED: OXYCODONE/ACETAMINOPHEN 5-325 TAB PO PRN ×2 (18:00)
[2017-10-28] MEDS ORDERED: MoRPHine SULFATE 2 MG/ML CARP IV PRN (18:00)
--- NOTE | 2017-10-28 18:09 | Discharge Instructions ---
Discharge Instructions Date of Service Oct 28, 2017. Admission Reason for Admission: Acute Cholecystitis Discharge Discharge Diagnosis / Problem: Acute Cholecystitis Discharge Goals Goal(s): Decrease discomfort, Improve function Activity Recommendations Activity Limitations: as noted below Lifting Limitations: no more than 10 pounds Exercise/Sports Limitations: until after follow-up appointment May Resume Sexual Activity: after follow-up appointment Shower/Bathe: tomorrow Driving or Machine Use: resume 3 days after discharge . Instructions / Follow-Up Instructions / Follow-Up Please follow-up with Dr. Gauthier in the General Surgery Clinic located at [address] [place] [address] KATIE Shultz in 1-2 weeks. Please call the General Surgery Clinic at [phone] to make an appointment. Please call the office with any questions or concerns. Current Hospital Diet Patient's current hospital diet: Clear Liquid Diet Discharge Diet Recommended Diet: Diabetes Type 2 Diet Procedures Procedures Performed: Laparoscopic cholecystectomy with intraoperative cholangiogram Pending Studies Studies pending at discharge: yes List of pending studies: Pathology report. Laboratory Results Hemoglobin A1c Test 10/28/17 04:13 Range/Units Estimated Average Glucose 286 mg/dl Hemoglobin A1c 11.6 H 4.5-5.6 % Medical Emergencies . Who to Call and When: Medical Emergencies: If at any time you feel your situation is an emergency, please call 911 immediately. . Non-Emergent Contact Non-Emergency issues call your: Primary Care Provider, Surgeon Call Non-Emergent contact if: temperature is above 101.5, your pain is not controlled, wound has increased drainage, wound has increased redness . "Provider Documentation" section prepared by Vicki Jacobs. . VTE Core Measure Inpt VTE Proph given/why not?: SCD's
--- NOTE | 2017-10-28 18:37 | Gastroenterology Progress Note ---
Gastroenterology Progress Note Patient was seen and examined in PACU. Awake and feels fine, no abdominal pain except some soreness at the surgical site. I discussed with him the ERCP findings and that IOC showed CBD stone. His LFTs were normal and no evidence of obstruction. Bile was freely flowing during the ERCP. We had also discussed the results of ERCP with the . Will need to transfer tomorrow morning [place] [facility] [place] so our advanced endoscopy team can repeat the ERCP for stone removal. Informed who will help arranging the transfer. Will speak to GI team there tomorrow.
[2017-10-28] MEDS ORDERED: HYDROmorphone INJ 1 MG/ML SYR ONE (18:44)
--- NOTE | 2017-10-28 19:06 | Anesthesiology Progress Note ---
Anesthesia Post Op Note Date & Time Oct 28, 2017 at 19:05 Vital Signs Pain Intensity: 0 Vital Signs Past 12 Hours Date Time Temp Pulse Resp B/P (MAP) Pulse Ox O2 Delivery O2 Flow Rate FiO2 10/28/17 19:00 83 14 155/76 95 Nasal Cannula 3 10/28/17 18:50 84 12 160/72 96 Nasal Cannula 3 10/28/17 18:40 81 21 156/73 96 Nasal Cannula 3 10/28/17 18:30 76 17 154/78 94 Nasal Cannula 3 10/28/17 18:20 75 14 151/75 96 Nasal Cannula 4 10/28/17 18:10 78 16 154/80 98 Oxymask 10 10/28/17 18:01 36.3 82 20 147/75 97 Oxymask 10 10/28/17 13:07 37.0 82 16 126/71 (89) 98 Room Air 10/28/17 12:00 Room Air 10/28/17 11:52 36.9 76 20 148/74 (98) 96 Room Air 10/28/17 08:29 37.0 82 20 136/79 (98) 94 10/28/17 08:00 Room Air Notes Mental Status: alert / awake / arousable, participated in evaluation Pt Amnestic to Procedure: Yes Nausea / Vomiting: adequately controlled Pain: adequately controlled Airway Patency, RR, SpO2: stable & adequate BP & HR: stable & adequate Hydration State: stable & adequate Anesthetic Complications: no major complications apparent
--- NOTE | 2017-10-28 19:22 | Anesthesiology Progress Note ---
Anesthesia Post Op Note Date & Time Oct 28, 2017 at 19:21 Vital Signs Pain Intensity: 0 Vital Signs Past 12 Hours Date Time Temp Pulse Resp B/P (MAP) Pulse Ox O2 Delivery O2 Flow Rate FiO2 10/28/17 19:10 37.2 85 17 153/71 96 Nasal Cannula 3 10/28/17 19:00 83 14 155/76 95 Nasal Cannula 3 10/28/17 18:50 84 12 160/72 96 Nasal Cannula 3 10/28/17 18:40 81 21 156/73 96 Nasal Cannula 3 10/28/17 18:30 76 17 154/78 94 Nasal Cannula 3 10/28/17 18:20 75 14 151/75 96 Nasal Cannula 4 10/28/17 18:10 78 16 154/80 98 Oxymask 10 10/28/17 18:01 36.3 82 20 147/75 97 Oxymask 10 10/28/17 13:07 37.0 82 16 126/71 (89) 98 Room Air 10/28/17 12:00 Room Air 10/28/17 11:52 36.9 76 20 148/74 (98) 96 Room Air 10/28/17 08:29 37.0 82 20 136/79 (98) 94 10/28/17 08:00 Room Air Notes Mental Status: alert / awake / arousable, participated in evaluation Pt Amnestic to Procedure: Yes Nausea / Vomiting: adequately controlled Pain: adequately controlled Airway Patency, RR, SpO2: stable & adequate BP & HR: stable & adequate Hydration State: stable & adequate Anesthetic Complications: no major complications apparent
[2017-10-28] MEDS: LACTATED RINGER'S 1000ML 1,000 ML IV SCH ×2 (19:54→22:45)
[2017-10-28] MEDS: MoRPHine SULFATE 2 MG/ML CARP IV PRN ×2 (19:54→22:45)
[2017-10-28 20:54] LABS: CALCIUM 8.1 mg/dl (8.5-10.1); CREATININE 1.67 mg/dl (0.60-1.40); POTASSIUM 3.7 mmol/L (3.5-5.1)
[2017-10-28 20:55] LABS: PHOSPHORUS 3.1 mg/dl (2.5-4.9)
[2017-10-28] MEDS: INSULIN REGULAR 250 UNITS in SODIUM CHLORIDE 0.9% 250ML 250 ML IV SCH (20:57)
[2017-10-28] MEDS: ERTAPENEM IV 1 GM in SODIUM CHLOR 0.9% AD-VAN 50ML 50 ML IV SCH (20:58)
[2017-10-29] MEDS ORDERED: POTASSIUM CHLORIDE 20 MEQ TABCR PO STA (02:03)
[2017-10-29 03:45] VITALS: BP 148/78; PULSE 88; TEMP 36.6; O2SAT 95
[2017-10-29] MEDS: PANTOprazole INJ 40 MG in DEXTROSE 5% 100ML IV SCH ×4 (04:22→17:53)
[2017-10-29] MEDS: LACTATED RINGER'S 1000ML 1,000 ML IV SCH ×2 (06:19→12:28)
[2017-10-29] MEDS: MoRPHine SULFATE 2 MG/ML CARP IV PRN ×2 (06:20→13:55)
[2017-10-29 07:52] VITALS: BP 181/81; PULSE 95; TEMP 36.5; O2SAT 94
[2017-10-29] MEDS: INSULIN ASPART 100 UNITS/ML 3 ML PEN SC SCH ×4 (08:00→20:52)
[2017-10-29 08:05] LABS: BASO % 0.1 %; BASO ABS # 0.01 K/uL (0-0.2); EOS % 0.6 %; EOS ABS # 0.04 K/uL (0-0.5); HEMATOCRIT 38.5 % (42-52); HEMOGLOBIN 12.9 g/dL (14.0-18.0); IG# 0.04 K/uL (0.00-0.02); LYMPH % 5.3 %; LYMPH ABS # 0.38 K/uL (1.2-3.4); MEAN CELL VOLUME 91.9 fL (80-100); MEAN CORPUSCULAR HEMOGLOBIN 30.8 pg (25-34); MEAN CORPUSCULAR HGB CONC 33.5 g/dl (32-36); MEAN PLATELET VOLUME 9.7 fL (7.4-10.4); MONO % 8.7 %; MONO ABS # 0.62 K/uL (0.11-0.59); NEUT % 84.7 %; NEUT ABS # 6.06 K/uL (1.4-6.5); PLATELET COUNT 275 K/uL (130-400); RED CELL DISTRIBUTION WIDTH CV 13.4 % (11.5-14.5); RED CELL DISTRIBUTION WIDTH SD 44.8 fL (36.4-46.3); WHITE BLOOD COUNT 7.15 K/uL (4.8-10.8)
[2017-10-29 08:42] LABS: ALBUMIN 2.2 gm/dl (3.4-5.0); CALCIUM 8.2 mg/dl (8.5-10.1); CREATININE 1.39 mg/dl (0.60-1.40); PHOSPHORUS 2.5 mg/dl (2.5-4.9); POTASSIUM 4.1 mmol/L (3.5-5.1)
--- NOTE | 2017-10-29 09:05 | Progress Note ---
Progress Note Date of Service Oct 29, 2017. (Kori Rivero CRNP) Progress Note GI quick note: Pt is a 72 y/o male admitted with cholecystitis and choledocholithiasis. ERCP for choledocholithiasis attempted yesterday but due to large diverticulum near his papilla, it was hard to cannulate him and stone retrieval wasn't successful. He had lap cholecystectomy following the ERCP, intraop cholangiogram showed retained stone. VS, labs reviewed. LFTs up: Tbili 3, AST 300s, ALT 140s, Alk phos 150. Pt reports having RUQ area abd pain, but no n/v. Afebrile overnight. WBC normal. PE: AAOx3, in NAD. Clear to auscultation lungs bilaterally except diminished in bases. HRR no murmur or gallops. RUQ abd area w SAMMI drain w serosangenous DC, TTP. BS hypoactive. PLANS: - Ok for CL diet - Keep IV antibiotic and IVF support w LR @150ml/hr - Transfer to [facility] for repeat ERCP. This has been arranged and awaiting bed (24-48hr). I had spoken w Dr. Meehan from GI service who is aware of pt's case as well. (Kori Rivero CRNP) I performed a history and physical examination of the patient. I have discussed the patient's case, impression and plan with Kori BENOIT. Her note reflects my findings and plan. No symptoms of pancreatitis. Awaiting transfer to [place]. Martell Woo MD (Martell Woo MD)
[2017-10-29 09:16] VITALS: BP 167/81; PULSE 94
--- NOTE | 2017-10-29 09:19 | Discharge Summary ---
Discharge Summary Date of Service Oct 30, 2017. Discharge Summary Admission Date: Oct 27, 2017 at 19:28 Discharge Date: Oct 30, 2017 Discharge Disposition: Acute care facility Principal Diagnosis: Acute cholecytsitis with choledocholithiasis Problems/Secondary Diagnoses: LANDEN on CKD, resolved Hyperglycemia, no DKA, resolved Immunizations: Have You Had Influenza Vaccine: Yes History of Tetanus Vaccine?: Unknown History of Pneumococcal: Unknown History of Hepatitis B Vaccine: Unknown Procedures: ERCP, could not cannulate bile duct due to duodenal diverticulum Laparoscopic cholecystectomy with intraoperative cholangiogram Consultations: Gastroenterology General surgery Discharge Exam Patient admits to some surgical site pain this AM, RUQ, dull, ache in nature. No nausea or vomiting. Tolerating clear liquids. Vitals stable. Sugars normalized. Reviewed labs, LFT bumped slightly after ERCP attempts yesterday, WBC normal. Discussed case with gastroenterology, recommend transfer to [facility]. Gastroenterology talked with colleagues at [place] who will perform the ERCP. Called [facility] this AM, accepted for transfer to service of hospitalists. Review of Systems: Constitutional: No fever, No chills, No sweats, No weight loss, No weakness , No fatigue, No problem reported Eyes: No worsening of vision, No eye pain, No redness, No discharge, No diplopia, No problem reported ENT: No hearing loss, No unusual epistaxis, No nasal symptoms, No sore throat, No tinnitus, No dental problems, No trouble swallowing, No problem reported Respiratory: No cough, No sputum, No wheezing, No shortness of breath, No dyspnea on exertion, No dyspnea at rest, No hemoptysis, No problem reported Cardiovascular: No chest pain, No orthopnea, No PND, No edema, No claudication, No palpitations, No problem reported Abdomen: + pain (RUQ), + constipation (+ flatus), No nausea, No vomiting, No diarrhea, No GI bleeding, No problem reported Musculoskeletal: No joint pain, No muscle pain, No swelling, No calf pain, No problem reported Genitourinary - Male: No hematuria, No dysuria, No urinary frequency, No urinary urgency Neurologic: No memory loss, No paralysis, No weakness, No numbness/tingling , No vertigo, No balance problems, No problem reported Psychiatric: No depression symptoms, No anhedonism, No anxiety, No insomnia , No substance abuse, No problem reported Endocrine: No fatigue, No excessive thirst, No excessive urination, No problem reported Hematologic / Lymphatic: No abnormal bleeding/bruising, No clotting problems , No swollen lymph nodes, No night sweats, No problem reported Integumentary: No rash, No itch, No new/changing skin lesions, No color change, No bleeding, No problem reported Physical Exam: General Appearance: WD/WN, no apparent distress Eyes: normal inspection, EOMI, sclerae normal ENT: normal ENT inspection, hearing grossly normal, pharynx normal Neck: supple, no adenopathy, no JVD, trachea midline Respiratory/Chest: chest non-tender, lungs clear, normal breath sounds, no respiratory distress, no accessory muscle use Cardiovascular: regular rate, rhythm, no edema, no gallop, no JVD, no murmur , normal peripheral pulses Abdomen / GI: normal bowel sounds, soft, no organomegaly, + tenderness (RUQ , no rebound or rigidity) Extremities: normal inspection, no calf tenderness, normal capillary refill , no pedal edema, normal range of motion, pelvis stable Neurologic/Psychiatric: gas and oil servicer II-XII nml as tested, no motor/sensory deficits , alert, normal mood/affect, normal reflexes, oriented x 3 Skin: normal color, warm/dry, no rash Lymphatic: no adenopathy Hospital Course Mr. Hardy is a 72 y/o male with PMHx of T2DM, HTN, HLD, CKD Stage III, and Myasthenia Gravis who prevents to the ED from his PCP for acute onset upper abdominal pain that started today. CT reveals acute cholecystitis and presence of DKA. Acute Cholecystitis: s/p cholecystectomy on 10/28/17 with intraoperative cholangiogram, no complications afebrile, WBC normal continue Invanz and IV fluids, allow clears today vitals stable for medical/surgical floor Choledocholithiasis: 4.5mm stone in CBD on MRCP and confirmed filling defect on intraoperative cholangiogram ERCP yesterday revealed a large duodenal diverticulum with the papilla on the rim of the diverticulum multiple attempts made to cannulate the bile duct, unsuccessful LFT mildly elevated yesterday after ERCP, trending down today will transfer to [place] for advanced endoscopy to perform the ERCP with stone retrieval DM type II with hyperglycemia on admission treated with insulin infusion since the patient was acutely ill normal anion gap d/c insulin infusion today, changed to Lantus with sliding scale coverage QT Prolongation: still with prolonged QT, avoiding quinolones, stable for medical floor Mild LANDEN on CKD Stage III: Cr was 2.04 at time of admission treated with IV fluids, Cr down to 1.39 today, adequate UO continue fluids since PO intake suboptimal Melena? Possible Upper GI Bleed: doubtful Hb down to 12.9 from 14.4 over 48 hours change Protonix to once a day continue to hold aspirin with anticipated ERCP and intervention HTN: - Hold HCTZ and Bonazepril and cover with Hydralazine PRN HLD: - Hold Atorvastatin and Tricor Myasthenia Gravis: STABLE - Patient reports he does not take Mestinon or Imuran anymore and denies recent myasthenia crises DVT Prophylaxis: SCDs Code Status: FULL RESUSCITATION plan to transfer to [place] once bed available Total Time Spent: Greater than 30 minutes This includes examination of the patient, discharge planning, medication reconciliation, and communication with other providers. Discharge Instructions Please refer to the electronic Patient Visit Report (Discharge Instructions) for additional information. Follow-Up GI at [facility] Additional Copies To Christo Gauthier, DO; Audrey Treadwell ., KAYCEE; Kori Rivero CRNP
--- NOTE | 2017-10-29 09:52 | Pharmacy Progress Note ---
Glycemic Control Progress Note Date of Service Oct 29, 2017. Scope Glycemic Pharmacist consulted for glycemic control to write orders per [facility] inpatient glycemic control protocol. Objective Accuchecks BSG (last 24hrs): Test 10/28/17 09:50 10/28/17 10:59 10/28/17 11:47 10/28/17 12:00 Bedside Glucose 199 mg/dl (70-99) 196 mg/dl (70-99) 194 mg/dl (70-99) Random Glucose 198 mg/dl (70-99) Test 10/28/17 13:03 10/28/17 16:10 10/28/17 16:53 10/28/17 18:05 Bedside Glucose 179 mg/dl (70-99) 244 mg/dl (70-99) 183 mg/dl (70-99) 177 mg/dl (70-99) Test 10/28/17 19:07 10/28/17 19:59 10/28/17 20:12 10/28/17 20:58 Bedside Glucose 167 mg/dl (70-99) 142 mg/dl (70-99) 141 mg/dl (70-99) Random Glucose 152 mg/dl (70-99) Test 10/28/17 22:07 10/28/17 23:00 10/28/17 23:54 10/29/17 00:54 Bedside Glucose 125 mg/dl (70-99) 120 mg/dl (70-99) 114 mg/dl (70-99) 120 mg/dl (70-99) Test 10/29/17 02:06 10/29/17 03:58 10/29/17 05:12 10/29/17 05:48 Bedside Glucose 133 mg/dl (70-99) 119 mg/dl (70-99) 106 mg/dl (70-99) 115 mg/dl (70-99) Test 10/29/17 06:12 10/29/17 06:34 10/29/17 06:52 10/29/17 07:11 Bedside Glucose 114 mg/dl (70-99) 130 mg/dl (70-99) 136 mg/dl (70-99) 124 mg/dl (70-99) Test 10/29/17 07:25 10/29/17 07:30 10/29/17 09:15 Random Glucose 154 mg/dl (70-99) Bedside Glucose 147 mg/dl (70-99) 174 mg/dl (70-99) HbA1c: Test 10/28/17 04:13 Hemoglobin A1c 11.6 % (4.5-5.6) H Recent Pertinent Medications Risk Factors for Insulin Resistance: * Infection: acute cholecystitis * IVF: Protonix infusion Outpatient Anti-Diabetic Meds Lantus 80-90 units SQ daily + Novolog SSI with meals (~80 units) Assessment & Plan ASSESSMENT: * 72 yr old T2DM male admitted with acute cholecystitis. Patient was NPO for possible laparoscopic cholecystitis on 10/29, however he is now ordered a clear liquid diet and is expected to be transferred to [place] for surgery. * Patient was initiated on IV insulin infusion for severe hyperglycemia due to non-compliance (no insulin administered 10/23-10/27). Patient reported omitting doses because of decreased appetite with abdominal discomfort and nausea. * IV insulin has infused at an average of ~3.5 units/hr (84 units/day). This is equivalent to home basal dosing. * Will transition to SQ basal/bolus insulin at this time based on home dose of ~ 160 units/day and data from insulin infusion. PLAN FOR INPATIENT GLYCEMIC CONTROL: * Basal insulin * Lantus 80 units SQ qAM * Bolus insulin * Novolog per scale ACHS * Goal range: 110 - 140 mg/dL * Correction factor: 12 mg/dL/unit * Carb ratio: 1 units for every 4 grams of CHO * Overlap with IV insulin infusion for up to six hours or until insulin infusion is held per calculator * Please note that the plan above was derived based on current level of insulin resistance and hospital stress. These recommendations are appropriate for inpatient admission only. Plan of care upon discharge will need to be reassessed to avoid potential outpatient hypo/hyperglycemia. Thank you.
--- NOTE | 2017-10-29 10:11 | Surgery Progress Note ---
Surgery Progress Note Date of Service Oct 29, 2017. Subjective 72-year-old male admitted with choledocholithiasis and cholecystitis, POD #1 attempted ERCP followed by laparoscopic cholecystectomy with intraoperative cholangiogram. The filling defect remained in the common bile duct on cholangiogram. Overall doing well, sore from incisions but minimal pain. Denies any nausea Objective Vital Signs: Date Time Temp Pulse Resp B/P (MAP) Pulse Ox O2 Delivery O2 Flow Rate FiO2 10/29/17 09:16 94 167/81 (109) 10/29/17 07:52 36.5 95 20 181/81 (114) 94 Room Air 10/29/17 04:00 Room Air 10/29/17 03:45 36.6 88 18 148/78 (101) 95 Room Air 10/29/17 00:00 Room Air 10/28/17 23:33 36.8 89 17 154/80 (104) 95 Nasal Cannula 2.0 10/28/17 21:00 36.8 86 19 160/81 (107) 95 Nasal Cannula 3.0 10/28/17 20:00 Room Air 10/28/17 20:00 36.9 85 19 151/78 (102) 94 Nasal Cannula 3.0 10/28/17 19:30 36.9 93 19 149/78 (101) 94 Nasal Cannula 3.0 10/28/17 19:10 37.2 85 17 153/71 96 Nasal Cannula 3 10/28/17 19:00 83 14 155/76 95 Nasal Cannula 3 10/28/17 18:50 84 12 160/72 96 Nasal Cannula 3 10/28/17 18:40 81 21 156/73 96 Nasal Cannula 3 10/28/17 18:30 76 17 154/78 94 Nasal Cannula 3 10/28/17 18:20 75 14 151/75 96 Nasal Cannula 4 10/28/17 18:10 78 16 154/80 98 Oxymask 10 10/28/17 18:01 36.3 82 20 147/75 97 Oxymask 10 10/28/17 13:07 37.0 82 16 126/71 (89) 98 Room Air 10/28/17 12:00 Room Air 10/28/17 11:52 36.9 76 20 148/74 (98) 96 Room Air Physical Exam: SAMMI drainage (serosanguineous) General Appearance: WD/WN, no apparent distress Abdomen: normal bowel sounds, non tender, non distended, soft, no organomegaly , no pulsatile mass Incision(s): clean, dry, intact, no erythema, no drainage Laboratory Results: Results Past 24 Hours Test 10/28/17 10:59 10/28/17 11:47 10/28/17 12:00 10/28/17 13:03 Range/Units Bedside Glucose 196 194 179 70-99 mg/dl Venous Blood pH 7.43 7.36-7.41 Sodium Level 138 136-145 mmol/L Potassium Level 3.7 3.5-5.1 mmol/L Chloride Level 105 98-107 mmol/L Carbon Dioxide Level 26 21-32 mmol/L Anion Gap 7.0 3-11 mmol/L Blood Urea Nitrogen 35 7-18 mg/dl Creatinine 1.57 0.60-1.40 mg/dl Est Creatinine Clear Calc Drug Dose 53.6 ml/min Estimated GFR () 50.3 Estimated GFR (Non- 43.4 BUN/Creatinine Ratio 22.0 10-20 Random Glucose 198 70-99 mg/dl Calcium Level 8.5 8.5-10.1 mg/dl Phosphorus Level 1.9 2.5-4.9 mg/dl Test 10/28/17 16:10 10/28/17 16:53 10/28/17 18:05 10/28/17 19:07 Range/Units Bedside Glucose 244 183 177 167 70-99 mg/dl Test 10/28/17 19:59 10/28/17 20:12 10/28/17 20:58 10/28/17 22:07 Range/Units Bedside Glucose 142 141 125 70-99 mg/dl Venous Blood pH 7.38 7.36-7.41 Sodium Level 137 136-145 mmol/L Potassium Level 3.7 3.5-5.1 mmol/L Chloride Level 106 98-107 mmol/L Carbon Dioxide Level 23 21-32 mmol/L Anion Gap 8.0 3-11 mmol/L Blood Urea Nitrogen 38 7-18 mg/dl Creatinine 1.67 0.60-1.40 mg/dl Est Creatinine Clear Calc Drug Dose 50.4 ml/min Estimated GFR () 46.7 Estimated GFR (Non- 40.3 BUN/Creatinine Ratio 22.7 10-20 Random Glucose 152 70-99 mg/dl Calcium Level 8.1 8.5-10.1 mg/dl Phosphorus Level 3.1 2.5-4.9 mg/dl Chemistry Specimen Hemolysis Test 10/28/17 23:00 10/28/17 23:54 10/29/17 00:54 10/29/17 02:06 Range/Units Bedside Glucose 120 114 120 133 70-99 mg/dl Test 10/29/17 03:58 10/29/17 05:12 10/29/17 05:48 10/29/17 06:12 Range/Units Bedside Glucose 119 106 115 114 70-99 mg/dl Test 10/29/17 06:34 10/29/17 06:52 10/29/17 07:11 10/29/17 07:25 Range/Units Bedside Glucose 130 136 124 70-99 mg/dl White Blood Count 7.15 4.8-10.8 K/uL Red Blood Count 4.19 4.7-6.1 M/uL Hemoglobin 12.9 14.0-18.0 g/dL Hematocrit 38.5 42-52 % Mean Corpuscular Volume 91.9 80-100 fL Mean Corpuscular Hemoglobin 30.8 25-34 pg Mean Corpuscular Hemoglobin Concent 33.5 32-36 g/dl Platelet Count 275 130-400 K/uL Mean Platelet Volume 9.7 7.4-10.4 fL Neutrophils (%) (Auto) 84.7 % Lymphocytes (%) (Auto) 5.3 % Monocytes (%) (Auto) 8.7 % Eosinophils (%) (Auto) 0.6 % Basophils (%) (Auto) 0.1 % Neutrophils # (Auto) 6.06 1.4-6.5 K/uL Lymphocytes # (Auto) 0.38 1.2-3.4 K/uL Monocytes # (Auto) 0.62 0.11-0.59 K/uL Eosinophils # (Auto) 0.04 0-0.5 K/uL Basophils # (Auto) 0.01 0-0.2 K/uL RDW Standard Deviation 44.8 36.4-46.3 fL RDW Coefficient of Variation 13.4 11.5-14.5 % Immature Granulocyte % (Auto) 0.6 % Immature Granulocyte # (Auto) 0.04 0.00-0.02 K/uL Sodium Level 138 136-145 mmol/L Potassium Level 4.1 3.5-5.1 mmol/L Chloride Level 106 98-107 mmol/L Carbon Dioxide Level 22 21-32 mmol/L Anion Gap 10.0 3-11 mmol/L Blood Urea Nitrogen 29 7-18 mg/dl Creatinine 1.39 0.60-1.40 mg/dl Est Creatinine Clear Calc Drug Dose 60.7 ml/min Estimated GFR () 58.3 Estimated GFR (Non- 50.3 BUN/Creatinine Ratio 21.2 10-20 Random Glucose 154 70-99 mg/dl Calcium Level 8.2 8.5-10.1 mg/dl Phosphorus Level 2.5 2.5-4.9 mg/dl Magnesium Level 2.4 1.8-2.4 mg/dl Total Bilirubin 3.6 0.2-1 mg/dl Direct Bilirubin 3.0 0-0.2 mg/dl Aspartate Amino Transf (AST/SGOT) 342 15-37 U/L Alanine Aminotransferase (ALT/SGPT) 183 12-78 U/L Alkaline Phosphatase 159 45-117 U/L Total Protein 6.0 6.4-8.2 gm/dl Albumin 2.2 3.4-5.0 gm/dl Test 10/29/17 07:30 10/29/17 09:15 Range/Units Bedside Glucose 147 174 70-99 mg/dl Assessment & Plan 72-year-old male POD #1 status post ERCP with failure to clear the duct, cholecystectomy with intraoperative cholangiogram with persistent filling defect. His labs this morning reflect an obstructive pattern. Otherwise doing well. Patient scheduled to transfer to [facility] for ERCP over next 24-48 hours The patient is not septic and procedure today, and he is okay to have clear liquids Recommend continued antibiotics Continue drain until duct is cleared Follow-up as an outpatient in 1-2 weeks Patient may shower Surgery will continue to follow while in house
[2017-10-29 12:39] VITALS: BP 169/83; PULSE 101; TEMP 36.7; O2SAT 94
[2017-10-29 15:04] VITALS: BP 170/90; PULSE 95; TEMP 36.8; O2SAT 96
[2017-10-29] MEDS: ERTAPENEM IV 1 GM in SODIUM CHLOR 0.9% AD-VAN 50ML 50 ML IV SCH (20:50)
[2017-10-29 23:33] VITALS: BP 167/82; PULSE 90; TEMP 36.7; O2SAT 94
[2017-10-30 00:01] VITALS: BP 168/82; PULSE 95
[2017-10-30] MEDS: INSULIN ASPART 100 UNITS/ML 3 ML PEN SC SCH ×4 (00:11→13:27)
[2017-10-30] MEDS ORDERED: NURSING VERBAL MED ORDER ONE ×2 (01:00→14:30)
[2017-10-30] MEDS ORDERED: SODIUM CHLORIDE 0.65% NA SOLN 45 ML (OCEAN) ONE (01:02)
[2017-10-30] MEDS: PANTOprazole INJ 40 MG in DEXTROSE 5% 100ML IV SCH ×3 (01:06→10:32)
[2017-10-30] MEDS ORDERED: SODIUM CHLORIDE 0.65% NA SOLN 45 ML (OCEAN) PRN (01:15)
[2017-10-30 03:33] VITALS: BP 170/79; PULSE 92; TEMP 36.6; O2SAT 94
--- NOTE | 2017-10-30 06:46 | Surgery Progress Note ---
Surgery Progress Note Date of Service Oct 30, 2017. Subjective Post OP Day: 2 + feeling well, + ambulating, + flatus, + pain controlled, + diet (Tolerating clear liquids), No complaints, No bowel movement, No nausea, No vomiting Objective Vital Signs: Date Time Temp Pulse Resp B/P (MAP) Pulse Ox O2 Delivery O2 Flow Rate FiO2 10/30/17 04:00 Room Air 10/30/17 03:33 36.6 92 20 170/79 (109) 94 Room Air 10/30/17 00:01 95 168/82 (110) 10/30/17 00:00 Room Air 10/29/17 23:33 36.7 90 18 167/82 (110) 94 Room Air 10/29/17 20:00 Room Air 10/29/17 16:00 Room Air 10/29/17 15:04 36.8 95 19 170/90 (116) 96 Room Air 10/29/17 12:39 36.7 101 20 169/83 (111) 94 Room Air 10/29/17 12:00 Room Air 10/29/17 09:16 94 167/81 (109) 10/29/17 08:00 Room Air 10/29/17 07:52 36.5 95 20 181/81 (114) 94 Room Air General Appearance: WD/WN, no apparent distress Head: normocephalic, atraumatic Respiratory/Chest: no respiratory distress, no accessory muscle use Abdomen: soft, no organomegaly, no pulsatile mass, + distended, + tenderness ( Incisional, mild) Incision(s): clean, dry, intact, no erythema, no drainage Laboratory Results: Results Past 24 Hours Test 10/29/17 06:52 10/29/17 07:11 10/29/17 07:25 10/29/17 07:30 Range/Units Bedside Glucose 136 124 147 70-99 mg/dl White Blood Count 7.15 4.8-10.8 K/uL Red Blood Count 4.19 4.7-6.1 M/uL Hemoglobin 12.9 14.0-18.0 g/dL Hematocrit 38.5 42-52 % Mean Corpuscular Volume 91.9 80-100 fL Mean Corpuscular Hemoglobin 30.8 25-34 pg Mean Corpuscular Hemoglobin Concent 33.5 32-36 g/dl Platelet Count 275 130-400 K/uL Mean Platelet Volume 9.7 7.4-10.4 fL Neutrophils (%) (Auto) 84.7 % Lymphocytes (%) (Auto) 5.3 % Monocytes (%) (Auto) 8.7 % Eosinophils (%) (Auto) 0.6 % Basophils (%) (Auto) 0.1 % Neutrophils # (Auto) 6.06 1.4-6.5 K/uL Lymphocytes # (Auto) 0.38 1.2-3.4 K/uL Monocytes # (Auto) 0.62 0.11-0.59 K/uL Eosinophils # (Auto) 0.04 0-0.5 K/uL Basophils # (Auto) 0.01 0-0.2 K/uL RDW Standard Deviation 44.8 36.4-46.3 fL RDW Coefficient of Variation 13.4 11.5-14.5 % Immature Granulocyte % (Auto) 0.6 % Immature Granulocyte # (Auto) 0.04 0.00-0.02 K/uL Sodium Level 138 136-145 mmol/L Potassium Level 4.1 3.5-5.1 mmol/L Chloride Level 106 98-107 mmol/L Carbon Dioxide Level 22 21-32 mmol/L Anion Gap 10.0 3-11 mmol/L Blood Urea Nitrogen 29 7-18 mg/dl Creatinine 1.39 0.60-1.40 mg/dl Est Creatinine Clear Calc Drug Dose 60.7 ml/min Estimated GFR () 58.3 Estimated GFR (Non- 50.3 BUN/Creatinine Ratio 21.2 10-20 Random Glucose 154 70-99 mg/dl Calcium Level 8.2 8.5-10.1 mg/dl Phosphorus Level 2.5 2.5-4.9 mg/dl Magnesium Level 2.4 1.8-2.4 mg/dl Total Bilirubin 3.6 0.2-1 mg/dl Direct Bilirubin 3.0 0-0.2 mg/dl Aspartate Amino Transf (AST/SGOT) 342 15-37 U/L Alanine Aminotransferase (ALT/SGPT) 183 12-78 U/L Alkaline Phosphatase 159 45-117 U/L Total Protein 6.0 6.4-8.2 gm/dl Albumin 2.2 3.4-5.0 gm/dl Test 2/8/18 09:15 10/29/17 12:02 10/29/17 16:28 10/29/17 20:36 Range/Units Bedside Glucose 174 201 234 188 70-99 mg/dl Test 10/29/17 23:51 10/30/17 03:56 10/30/17 04:44 Range/Units Bedside Glucose 213 176 70-99 mg/dl Assessment & Plan POD #2 status post ERCP with failure to clear the duct, cholecystectomy with intraoperative cholangiogram with persistent filling defect. Pain controlled, Tolerating clear liquids, No N/V. Awaiting transfer to [facility] for ERCP, Continue antibiotics, Continue Drain. F/U as outpatient in 1-2 weeks. Will continue to follow. Please contact with questions or concerns.
[2017-10-30 08:08] LABS: CALCIUM 8.5 mg/dl (8.5-10.1); CREATININE 1.21 mg/dl (0.60-1.40)
[2017-10-30 08:15] VITALS: BP 178/81; PULSE 90; TEMP 36.7; O2SAT 95
[2017-10-30 08:16] LABS: PHOSPHORUS 1.5 mg/dl (2.5-4.9)
[2017-10-30 08:18] LABS: POTASSIUM 3.3 mmol/L (3.5-5.1)
[2017-10-30] MEDS ORDERED: INSULIN GLARGINE SC SCH ×2 (09:00)
[2017-10-30] MEDS ORDERED: POTASSIUM PHOS 3 MMOL/1 ML INFUSION IV STA (09:21)
[2017-10-30] MEDS: MoRPHine SULFATE 2 MG/ML CARP IV PRN ×3 (09:22→13:52)
[2017-10-30] MEDS ORDERED: INSULIN GLARGINE SOLOSTAR 100 UNITS/ML 3 ML PEN SC ONE (09:30)
[2017-10-30] MEDS ORDERED: POTASSIUM PHOSPHATE INJ 21 MMOL in SODIUM CHLORIDE 0.9% 500ML 500 ML IV ONE (09:45)
--- NOTE | 2017-10-30 10:21 | Pharmacy Progress Note ---
Pharmacy Glycemic Short Note 2 Date of Service Oct 30, 2017. OUTPATIENT ANTIDIABETIC REGIMEN: * Novolog sliding scale plus Lantus 80-90 units qAM (around 160 units/day) ASSESSMENT: * Mr Hardy is a 72 y/o M with a PMH of MG, CKD, and HTN who presented with cholecystis. The patient was initially placed on an insulin infusion. He was given Lantus 80 units yesterday and a Novolog carbohydrate ratio/correction factor based upon outpatient dose of 160 units. He continues on an IV Protonix infusion plus Invanz. He is on a clear liquid diet. * Yesterday, the patient's blood sugars ranged from 144-234 mg/dL, and the fasting blood sugar is 192 mg/dL. * Increase Lantus to maximum home dose of 90 units secondary to increased fasting. The patient is still insulin resistant since he was on an insulin infusion for about 1.5 days. Continue Novolog as the patient's pre-prandial blood sugars remained stable. PLAN FOR INPATIENT GLYCEMIC CONTROL: * Basal insulin * Lantus 90 units SQ qAM * Bolus insulin * NovoLog per scale ACHS or Q6hrs while NPO * Goal Range: Low 110 mg/dL - High 140 mg/dL * Correction Factor: 12 mg/dL/unit * Nutritional / Prandial insulin per carb ratio of 1 unit per 4 grams CHO consumed PLAN FOR DISCHARGE: * The patient's HbA1C is very elevated at 11.6%... consider increasing the patient's Novolog dose so that the patient has a 50/50 split ratio with basal and bolus coverage. May schedule doses of Novolog plus sliding scale.
[2017-10-30 10:25] LABS: ALBUMIN 2.1 gm/dl (3.4-5.0); TOTAL PROTEIN 6.1 gm/dl (6.4-8.2)
[2017-10-30 12:05] VITALS: BP 174/84; PULSE 91; TEMP 36.9; O2SAT 96
[2017-10-30] MEDS: HydrALAZINE HCL 20 MG/ML VIAL IV. PRN ×2 (13:54)
--- NOTE | 2017-10-30 14:03 | Progress Note ---
Subjective Date of Service: Oct 29, 2017. Subjective Pt evaluation today including: conversation w/ patient, conversation w/ family , physical exam, lab review, conversation w/ mainframe consultant, review of inpatient medication list Pain: mild RUQ pain PO Intake: clears Voiding: no voiding problems patient was seen in the morning on 10/29, planned to transfer to [facility], accepted but no bed available on 10/29 reviewed labs, LFT up slightly, discussed with Rafael SHAFER, expected from the ERCP reviewed notes from lap shahbaz with cholangiogram and repeat ERCP attempts discussed case with Dr. Keating who had recommended going to [facility] for advanced endoscopy Problem List Medical Problems: (1) GI bleed Status: Acute (2) Type 2 diabetes mellitus Status: Chronic Review of Systems Constitutional: + weakness, + fatigue Abdomen: + pain (RUQ, from surgery) All Other Systems: Reviewed and Negative Medications Current Inpatient Medications Medications (Trade) Dose Ordered Sig/Fer Route Start Time Stop Time Status Last Admin Dose Admin Acetaminophen (Tylenol Tab) 650 mg Q4H PRN PO 10/27/17 19:15 11/26/17 19:14 Al Hydrox/Mg Hydrox/Simethicone (Maalox Max Susp) 15 ml Q4H PRN PO 10/27/17 19:15 11/26/17 19:14 Magnesium Hydroxide (Milk Of Magnesia Susp) 30 ml Q12H PRN PO 10/27/17 19:15 11/26/17 19:14 Ondansetron HCl (Zofran Inj) 4 mg Q6H PRN IV 10/27/17 19:15 11/26/17 19:14 Polyethylene (Miralax Powder Packet) 17 gm DAILY PRN PO 10/27/17 19:15 11/26/17 19:14 Miscellaneous Information (Consult Glycemic Management Pharmacy) 1 ea UD PRN N/A 10/27/17 19:15 11/26/17 19:14 Ertapenem 1 gm/ Sodium Chloride 50 ml @ 120 mls/hr Q24H IV 10/27/17 21:00 11/06/17 20:59 10/29/17 20:50 120 MLS/HR Hydralazine HCl (HydrALAZINE INJ) 10 mg Q6 PRN IV. 10/27/17 20:00 11/26/17 19:59 10/30/17 00:00 10 MG Morphine Sulfate (MoRPHine SULFATE INJ) 1 mg Q3H PRN IV 10/28/17 18:00 11/11/17 17:59 Oxycodone/ Acetaminophen (Percocet 5-325mg Tab) 1 tab Q4H PRN PO 10/28/17 18:00 11/11/17 17:59 Morphine Sulfate (MoRPHine SULFATE INJ) 2 mg Q3H PRN IV 10/28/17 18:00 11/11/17 17:59 10/30/17 09:22 2 MG Oxycodone/ Acetaminophen (Percocet 5-325mg Tab) 2 tab Q4H PRN PO 10/28/17 18:00 11/11/17 17:59 Morphine Sulfate (MoRPHine SULFATE INJ) 3 mg Q3H PRN IV 10/28/17 18:00 11/11/17 17:59 10/28/17 22:45 3 MG Insulin Aspart (novoLOG ASPART) SLIDING SCALE ACHS SC 10/29/17 11:00 11/28/17 10:59 10/30/17 13:27 3 UNITS Sodium Chloride ([place] Nasal [place]) 1 sprays PRN PRN NA 10/30/17 01:15 11/29/17 01:14 Insulin Glargine (Lantus Vial) 90 units QAM SC 10/30/17 09:00 11/29/17 08:59 Future hold Potassium Phosphate 21 mmol/ Sodium Chloride 507 ml @ 88 mls/hr TODAY@0945 ONCE IV 10/30/17 09:45 10/30/17 15:30 10/30/17 10:32 88 MLS/HR Objective Vital Signs Date Time Temp Pulse Resp B/P (MAP) Pulse Ox O2 Delivery O2 Flow Rate FiO2 10/30/17 12:05 36.9 91 19 174/84 (114) 96 Room Air 10/30/17 08:15 36.7 90 19 178/81 (113) 95 Room Air 10/30/17 04:00 Room Air 10/30/17 03:33 36.6 92 20 170/79 (109) 94 Room Air 10/30/17 00:01 95 168/82 (110) 10/30/17 00:00 Room Air 10/29/17 23:33 36.7 90 18 167/82 (110) 94 Room Air 10/29/17 20:00 Room Air 10/29/17 16:00 Room Air 10/29/17 15:04 36.8 95 19 170/90 (116) 96 Room Air Physical Exam General Appearance: WD/WN, no apparent distress Eyes: normal inspection, EOMI, sclerae normal ENT: normal ENT inspection, hearing grossly normal, pharynx normal Neck: supple, no adenopathy, no JVD, trachea midline Respiratory/Chest: chest non-tender, lungs clear, normal breath sounds, no respiratory distress, no accessory muscle use Cardiovascular: regular rate, rhythm, no edema, no gallop, no JVD, no murmur Abdomen: normal bowel sounds, soft, no organomegaly, + tenderness (RUQ, mild, no rebound or rigidity) Extremities: normal range of motion, non-tender, normal inspection, no pedal edema, no calf tenderness Neurologic/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: 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 tested, no motor/sensory deficits, alert, normal mood/affect, oriented x 3 Skin: normal color, warm/dry, no rash Lymphatic: no adenopathy Laboratory Results Last 24 Hours Test 10/29/17 16:28 10/29/17 20:36 10/29/17 23:51 10/30/17 03:56 Bedside Glucose 234 mg/dl 188 mg/dl 213 mg/dl 176 mg/dl Test 10/30/17 06:56 Sodium Level 137 mmol/L Potassium Level 3.3 mmol/L Chloride Level 105 mmol/L Carbon Dioxide Level 21 mmol/L Anion Gap 11.0 mmol/L Blood Urea Nitrogen 19 mg/dl Creatinine 1.21 mg/dl Est Creatinine Clear Calc Drug Dose 69.9 ml/min Estimated GFR () 68.9 Estimated GFR (Non- 59.5 BUN/Creatinine Ratio 15.9 Random Glucose 192 mg/dl Calcium Level 8.5 mg/dl Phosphorus Level 1.5 mg/dl Magnesium Level 2.0 mg/dl Total Bilirubin 3.1 mg/dl Direct Bilirubin 2.4 mg/dl Aspartate Amino Transf (AST/SGOT) 125 U/L Alanine Aminotransferase (ALT/SGPT) 160 U/L Alkaline Phosphatase 212 U/L Total Protein 6.1 gm/dl Albumin 2.1 gm/dl Assessment and Plan Mr. Hardy is a 72 y/o male with PMHx of T2DM, HTN, HLD, CKD Stage III, and Myasthenia Gravis who prevents to the ED from his PCP for acute onset upper abdominal pain that started today. CT reveals acute cholecystitis and presence of DKA. Acute Cholecystitis: s/p cholecystectomy on 10/28/17 with intraoperative cholangiogram, no complications afebrile, WBC normal continue Invanz and IV fluids, allow clears today vitals stable for medical/surgical floor on transfer to [facility] Choledocholithiasis: 4.5mm stone in CBD on MRCP and confirmed filling defect on intraoperative cholangiogram ERCP 10/28 revealed a large duodenal diverticulum with the papilla on the rim of the diverticulum multiple attempts made to cannulate the bile duct, unsuccessful LFT mildly elevated yesterday after ERCP, trending down today will transfer to [facility] for advanced endoscopy to perform the ERCP with stone retrieval DM type II with hyperglycemia on admission treated with insulin infusion since the patient was acutely ill normal anion gap d/c insulin infusion 10/28, changed to Lantus with sliding scale coverage QT Prolongation: still with prolonged QT, avoiding quinolones, stable for medical floor Mild LANDEN on CKD Stage III: Cr was 2.04 at time of admission treated with IV fluids, Cr down to 1.39 on 10/28, adequate UO continue fluids since PO intake suboptimal Melena? Possible Upper GI Bleed: doubtful Hb down to 12.9 from 14.4 over 48 hours change Protonix to once a day continue to hold aspirin with anticipated ERCP and intervention HTN: - Hold HCTZ and Bonazepril and cover with Hydralazine PRN HLD: - Hold Atorvastatin and Tricor Myasthenia Gravis: STABLE - Patient reports he does not take Mestinon or Imuran anymore and denies recent myasthenia crises DVT Prophylaxis: SCDs Code Status: FULL RESUSCITATION plan to transfer to [facility] once bed available
== END 2017-10-30 15:32 | disposition short-term general hospital (02) | DRG 418 ==
LOC: EDBD 16:00 → C.EDC 16:01 → C.2T 19:28 → ENRESERV 20:06
PROVIDERS: ADMIT Hospitalist; ATTEND Internal Medicine
PROC: 0DC Gastrointestinal System, Extirpation (ICD-10-PCS; principal; 2017-10-28 12:00)
PROC: 0FT44ZZ Resection of Gallbladder, Percutaneous Endoscopic Approach (ICD-10-PCS; principal; 2017-10-28 12:00)
PROC: BF14YZZ Fluoroscopy of Gallbladder, Bile Ducts and Pancreatic Ducts using Other Contrast (ICD-10-PCS; principal; 2017-10-28 12:00)
PROC: 0FJB8ZZ Inspection of Hepatobiliary Duct, Via Natural or Artificial Opening Endoscopic (ICD-10-PCS; 2017-10-28 12:00)
PROC: 0FJD8ZZ Inspection of Pancreatic Duct, Via Natural or Artificial Opening Endoscopic (ICD-10-PCS; 2017-10-28 12:00)
DX: K80.63 Calculus of gallbladder and bile duct with acute cholecystitis with obstruction (principal); K92.2 Gastrointestinal hemorrhage, unspecified; N17.9 Acute kidney failure, unspecified; E10.65 Type 1 diabetes mellitus with hyperglycemia; F17.290 Nicotine dependence, other tobacco product, uncomplicated; N18.3 Chronic kidney disease, stage 3 (moderate); I12.9 Hypertensive chronic kidney disease with stage 1 through stage 4 chronic kidney disease, or unspecified chronic kidney disease; Z79.82 Long term (current) use of aspirin; G70.00 Myasthenia gravis without (acute) exacerbation; Z79.4 Long term (current) use of insulin; K57.10 Diverticulosis of small intestine without perforation or abscess without bleeding

== ENCOUNTER → 2017-12-17 | Outpatient (CLI) | payer OTHER ==
[~2017-12-17] MED LIST changes: -ASCA500 PO; +ASPI-461 PO; +ATOR-26 PO; +BENA1TAB53 PO; -BENA20TA14 PO; +CHOL100010 PO; +CYAN100020 PO; -CYAN250T PO; -DILT-119 PO; +FENO145T26 PO; -GLC500 PO; +HYDR25TA5 PO; +IBUP600T44 PO; +INSDGIPEN SC; -INSU70IN2 SC; -MULT-506 PO; +MULTCAP36 PO; +NAPR-1169 PO; -NIAC1TAB59 PO; +NRN600 PO; +NVLGI/PEN SC; -PYRI60TA2 PO; -SIMV80TA2 PO; -SITA100T3 PO; +TADA20TA PO; -THIA100T11 PO
[2017-12-17 17:13] LABS: BASO % 0.8 %; BASO ABS # 0.04 K/uL (0-0.2); EOS % 3.2 %; EOS ABS # 0.17 K/uL (0-0.5); HEMATOCRIT 36.6 % (42-52); HEMOGLOBIN 11.9 g/dL (14.0-18.0); IG# 0.02 K/uL (0.00-0.02); LYMPH % 15.2 %; LYMPH ABS # 0.81 K/uL (1.2-3.4); MEAN CELL VOLUME 89.7 fL (80-100); MEAN CORPUSCULAR HEMOGLOBIN 29.2 pg (25-34); MEAN PLATELET VOLUME 8.8 fL (7.4-10.4); MONO % 9.6 %; MONO ABS # 0.51 K/uL (0.11-0.59); NEUT % 70.8 %; NEUT ABS # 3.77 K/uL (1.4-6.5); PLATELET COUNT 301 K/uL (130-400); RED CELL DISTRIBUTION WIDTH CV 15.1 % (11.5-14.5); WHITE BLOOD COUNT 5.32 K/uL (4.8-10.8)
[2017-12-17 17:18] LABS: MEAN CORPUSCULAR HGB CONC 32.5 g/dl (32-36)
[2017-12-17 17:23] LABS: ALBUMIN 2.7 gm/dl (3.4-5.0); ALT/SGPT 18 U/L (12-78); AST/SGOT 14 U/L (15-37); BLOOD UREA NITROGEN 13 mg/dl (7-18); CALCIUM 8.8 mg/dl (8.5-10.1); CARBON DIOXIDE 29 mmol/L (21-32); CREATININE 1.29 mg/dl (0.60-1.40); GLUCOSE 239 mg/dl (70-99); POTASSIUM 3.9 mmol/L (3.5-5.1); SODIUM 139 mmol/L (136-145)
[2017-12-17 17:31] LABS: ALKALINE PHOSPHATASE 89 U/L (45-117); CHOLESTEROL 188 mg/dl (0-200); LDL CHOLESTEROL (DIRECT) 131 mg/dl; PHOSPHORUS 3.2 mg/dl (2.5-4.9); TOTAL PROTEIN 6.6 gm/dl (6.4-8.2)
[2017-12-18 06:47] LABS: HEMOGLOBIN A1C 10.6 % (4.5-5.6)
== END | disposition home or self-care (01) ==
LOC: C.LABBC 14:57
PROVIDERS: ATTEND Internal Medicine Nephrology
DX: E55.9 Vitamin D deficiency, unspecified (principal); I12.9 Hypertensive chronic kidney disease with stage 1 through stage 4 chronic kidney disease, or unspecified chronic kidney disease; N18.3 Chronic kidney disease, stage 3 (moderate); R80.9 Proteinuria, unspecified; N39.0 Urinary tract infection, site not specified; K92.1 Melena; E78.5 Hyperlipidemia, unspecified; E11.65 Type 2 diabetes mellitus with hyperglycemia

== ENCOUNTER 2022-02-28 13:37 | Inpatient (IN) ==
--- NOTE | 2022-02-28 14:19 | Emergency Department Note ---
History of Present Illness General Chief complaint: Referred by Doctor Stated complaint: REFERRED BY [facility]CO FROM [facility] Time Seen by Provider: 02/28/22 14:01 Source: patient History of Present Illness Provider complaint: Drainage from biopsy site Onset (ago): day(s) 2 Location: back and right Pain Consistency: + intermittent Maximum Pain Intensity: 4 Quality: + other (Thick yellowish fluid) Relieved By: + none Associated symptoms: no chest pain, no cough, no fever/chills, no malaise, no nausea/vomiting or no shortness of breath This is a 76-year-old male who presents with drainage from his biopsy site from 10 days ago. The drainage started 2 days ago. It is a yellowish slightly thick fluid. He has no associated significant pain with it. He called his doctor who advised him to come here for further evaluation. He denies any abdominal pain. He states that he has had no fevers or chills or malaise. The patient stated that he developed a mass to his right flank about 2 weeks prior to the biopsy. It was quickly growing and so a biopsy was performed. He states the results of the biopsy said that it was benign. He otherwise feels well and has been in good health. He denies any cough or cold symptoms, chest pain, shortness of breath, abdominal pain, vomiting, diarrhea or urinary symptoms. Home Medications Medication Instructions Recorded Confirmed Type peg 400-propylene glycol 0.4 %-0.3 1 drops OP QAM ml 04/07/19 02/28/22 History % eye drops sildenafil 100 mg tablet 50 mg PO ONCE PRN #7 tab 10/04/20 02/28/22 Rx cholecalciferol (vitamin D3) 25 1,000 unit PO QAM PRN tab 03/25/21 02/28/22 History mcg (1,000 unit) tablet cyanocobalamin (vitamin B-12) 1,000 mcg PO QAM PRN #100 tab 03/25/21 02/28/22 History 1,000 mcg tablet evolocumab 140 mg/mL subcutaneous 140 mg SUBCUT .every other week #6 04/10/21 02/28/22 Rx pen injector (Repatha SureClick) ml gabapentin 600 mg tablet 1,200 mg PO BID 90 Days #360 tab 05/09/21 02/28/22 Rx icosapent ethyl 1 gram capsule 2 g PO BID #360 cap 08/29/21 02/28/22 Rx liraglutide 0.6 mg/0.1 mL (18 mg/3 1.8 mg SUBCUT QAM ml 09/19/21 02/28/22 History mL) subcutaneous pen injector (Victoza 3-Bravo) naproxen 500 mg tablet 500 mg PO BID PRN #60 tab 09/19/21 02/28/22 Rx duloxetine 30 mg capsule,delayed 30 mg PO BID #180 cap 12/02/21 02/28/22 Rx release (Cymbalta) Novolog U-100 Insulin aspart 100 See Rx Instructions .ROUTE 01/14/22 02/28/22 Rx unit/mL subcutaneous solution .COMPLEX #110 ml NS (insulin aspart U-100) aspirin 81 mg chewable tablet 81 mg PO QAM 02/28/22 02/28/22 History empagliflozin 10 mg tablet 10 mg PO QAM 02/28/22 02/28/22 History (Jardiance) rosuvastatin 40 mg tablet 40 mg PO QAM 02/28/22 02/28/22 History Allergies Allergy/AdvReac Type Severity Reaction Status Date / Time No Known Allergies Allergy Verified 02/28/22 15:11 Past Med/Surg History Medical History Actinic keratosis Dyslipidemia Gastric ulcer GI bleed History of SCC (squamous cell carcinoma) of skin Hypertension Myasthenia gravis Proteinuria Sensorineural hearing loss of both ears Stage III chronic kidney disease Tinnitus, bilateral Vitamin D deficiency Surgical History S/P laparoscopic cholecystectomy Family History Mother No problems noted. Father Diabetes Myocardial infarction Stroke Other No pertinent family history Denies family history of Ovarian cancer Prostate cancer Breast cancer Lung cancer Colorectal cancer Social History Smoking Status: Current every day smoker Tobacco Type: Cigars Cigarettes Per Day: 1 cigar daily; Second Hand Exposure: Yes; Hx Alcohol Use: Yes Alcohol type: hard liquor Hx Substance Use: No Preferred Language: Maltese Visual Impairment: Limited Hearing Ability: Normal marital status: Current Living Situation: Spouse current occupational status: retired How many Children do You have: 1 Feels Safe at Home: Yes Childhood Exposure to Second-Hand Smoke: Yes Diet Comment: no diet caffeine: Yes Dental Care, Regularly: Yes Physical Activity Frequency: Does not Exercise Seatbelt Use: always Sunscreen Use: No Review of Systems See HPI for pertinent positives & negatives. and A total of 10 systems reviewed and were otherwise negative Physical Exam Vital Signs Vital Signs - 24 hr 02/28/22 13:43 02/28/22 16:38 Temperature 36.5 C Temperature Source Temporal Artery Scan Pulse Rate 83 Pulse Rate [Left Finger] 62 Pulse Rhythm [Left Finger] Regular Respiratory Rate 20 18 Respiratory Effort / Characteristics Non-Labored Spontaneous Non-Labored Respiratory Depth Normal Respiratory Pattern Regular Blood Pressure 110/70 Blood Pressure [Left Radial Artery] 121/73 Blood Pressure Mean 83 Blood Pressure Mean [Left Radial Artery] 89 Pulse Oximetry 95 97 Oxygen Delivery Method Room Air Sepsis Recent Fever Within 48 Hours No Sepsis New/Unexplained Change in Mental Status No Sepsis Action Taken by Nursing No Action Required Constitutional: Vital signs reviewed. Eyes: Pupils are equal round reactive to light. Conjunctiva are noninjected. ENT: Pharynx is clear without erythema or exudate. Mucous membranes are moist. Neck supple without meningeal signs. Respiratory: Clear to auscultation bilaterally. Breath sounds are equal bilaterally. Cardiovascular: Regular rate and rhythm. No rubs or gallops. GI: Soft, nondistended and nontender. Bowel sounds are present. Insulin pump right lower abdomen. Musculoskeletal: Approximately 10 x 4 cm oblong mass to the right flank with a puncture wound in the mid axillary line with drainage of slightly thick serous fluid with some purulence. The fluid is mostly clear. No surrounding erythema. Mild tenderness. Integumentary: No cyanosis. or jaundice. Neurological: The patient is awake and alert. No focal deficits. Psychiatric: Normal affect. Not anxious appearing. Course Administered Medications Discontinued Medications Sodium Chloride (Nss 1000ml) 250 mls @ 999 mls/hr IV .Q16M ONE Stop: 02/28/22 16:20 Last Infusion: 02/28/22 17:37 Dose: 0 mls/hr Documented by: [id number] Admin: 02/28/22 17:03 Dose: 999 mls/hr Documented by: [id number] Piperacillin Sod/Tazobactam Sod (Zosyn) 4.5 gm in 120 mls @ 240 mls/hr IV NOW ONE Stop: 02/28/22 16:54 Last Admin: 02/28/22 17:37 Dose: 240 mls/hr Documented by: [id number] Insulin Human Regular (Novolin-R Insulin Per Unit Charge) 4 units IV NOW STA Stop: 02/28/22 16:30 Last Admin: 02/28/22 17:01 Dose: 4 units Documented by: [id number] Cosigned by: [id number] Medical Decision Making Differential Diagnosis Seroma, abscess, postoperative pain, mass, MRSA, cellulitis Medical Records Attestation: I reviewed the patient's medical records. I did perform a limited focused review of portions of the patient's old chart on the electronic medical record. The patient has had no recent pertinent visits to this hospital. Home Medications Current Medication List: was personally reviewed by me Laboratory Data Attestation: I reviewed the patient's lab results. Result diagrams: 02/28/22 14:21 02/28/22 14:21 Lab Results 02/28/22 02/28/22 02/28/22 Range/Units 14:21 14:21 Unknown WBC 7.02 (4.8-10.8) K/uL RBC 4.66 L (4.7-6.1) M/uL Hgb 13.2 L (14.0-18.0) g/dL Hct 40.5 L (42-52) % MCV 86.9 (80-100) fL MCH 28.3 (25-34) pg MCHC 32.6 (32-36) g/dL RDW Std Deviation 46.8 H (36.4-46.3) fL RDW Coeff of Slim 14.9 H (11.5-14.5) % Plt Count 297 (130-400) K/uL MPV 8.8 (7.4-10.4) fL Immature Gran % (Auto) 0.4 % Neut % (Auto) 74.6 % Lymph % (Auto) 13.8 % [place] % (Auto) 6.6 % Eos % (Auto) 4.3 % Baso % (Auto) 0.3 % Neut # (Auto) 5.24 (1.4-6.5) K/uL Lymph # (Auto) 0.97 L (1.2-3.4) K/uL [place] # (Auto) 0.46 (0.11-0.59) K/uL Eos # (Auto) 0.30 (0-0.5) K/uL Baso # (Auto) 0.02 (0-0.2) K/uL Immature Gran # (Auto) 0.03 H (0.00-0.02) K/uL Sodium 139 (136-145) mmol/L Potassium 3.7 (3.5-5.1) mmol/L Chloride 104 (98-107) mmol/L Carbon Dioxide 29 (21-32) mmol/L Anion Gap 6 (3-11) BUN 24 H (6-23) mg/dl Creatinine 1.48 H (0.6-1.4) mg/dl Est Cr Clr Drug Dosing 50.0 ml/min Est GFR ( Amer) 52.5 ml/min Est GFR (Non-Af Amer) 45.3 ml/min BUN/Creatinine Ratio 16.2 (10-20) Glucose 312 H* (70-99(Fasting)) mg/dl Calcium 10.2 H (8.5-10.1) mg/dl SARS-CoV-2, RNA, NAAT NEGATIVE (NEGATIVE) Imaging Data Radiologist's Impression: Abdomen Ultrasound 02/28/22 14:13 US abdomen limited HISTORY: 76 years-old Male right flankmass s/p biopsy eval for abscess acute right-sided flank pain COMPARISON: CT abdomen pelvis 10/27/2017 TECHNIQUE: Multiple real-time sonographic images of the right flank soft tissues were obtained assessing grayscale appearance and color flow FINDINGS/IMPRESSION: Within the posterior right flank soft tissues there is a heterogeneous reportedly recently biopsied mass with ill-defined margins containing a 12.0 x 12.0 x 6.0 cm collection with layering mobile debris. Findings may represent a superimposed abscess versus hematoma. Correlation with biopsy results recommended. ACT 112: Negative or not required by law. The above report was generated using voice recognition software. It may contain grammatical, syntax or spelling errors. Electronically signed by: Hari Brady M.D. 02/28/2022 3:39 PM MDM Narrative I did evaluate the patient as noted above. The patient is presenting with some drainage from his biopsy site on exam he has slightly purulent mostly serous drainage. His mass is palpable but he states that it is shrunk in size significantly from last month. He has some minimal pain with no significant cellulitis to the area. I did obtain records from the [facility] and the biopsy showed granulation tissue with osteoclastic giant cells and necrosis the pathologist stated that these findings could be seen in resolving abscesses or changes near a mass lesion. No definitive evidence of malignancy was found. An ultrasound was performed on February 05 which showed a complex cystic collection measuring 8.3 x 13.5 x 9 cm to the right posterior lateral flank. This was thought to be possibly an abscess. CT was recommended. CT was performed the next day and showed a large right flank mass which was predominantly solid- appearing measuring 7 cm in greatest been which then extends underneath the right 12th rib with large predominantly necrotic appearing component in the right retroperitoneum measuring 12 x 6 cm. I did clean the area with alcohol. I then did express some fluid from the wound. I cleaned the area again with alcohol and then obtained a wound culture which was sent to the lab. IV access was established. I did order and review the patient's blood work as noted in the electronic medical record. His white count is not elevated. He has mild anemia with a hemoglobin of 13. Chemistries show a BUN of 24 and creatinine 1.48. Glucose is 312. He does state that his insulin pump is out of insulin. I did treat him with IV insulin as well as normal saline. I did order an ultrasound of the right flank. I did review the images myself as well as the radiology report as described above. There is a mass with a fluid collection measuring 12 x 12 x 6 cm with layering mobile debris. I did discuss the case with Dr. Aguilar of surgery. He recommended broad-spectrum antibiotics. I did treat the patient with Zosyn IV after ordering 2 sets of blood cultures. I did discuss the case with the hospitalist and caser. I did discuss the test results with the patient. Impression & Plan Abdominal wall mass of right flank, Abscess of flank, Acute hyperglycemia Discharge Plan Visit Data Chief Complaint: Referred by Doctor Stated Complaint: REFERRED BY RA [facility] FROM [facility] ED Provider: Oscar Martin Discharge Problem: Abdominal wall mass of right flank, Abscess of flank, Acute hyperglycemia Forms Stand Alone Forms: My [facility] Prescriptions Prescriptions: No Action Repatha SureClick 140 mg/mL pen injector 140 mg subcut .every other week Qty: 6 RF: 3 gabapentin 600 mg tablet 1,200 mg PO BID 90 Days Qty: 360 RF: 3 icosapent ethyl 1 gram capsule 2 g PO BID Qty: 360 RF: 3 duloxetine [Cymbalta] 30 mg capsule,delayed release(DR/EC) 30 mg PO BID Qty: 180 RF: 3 insulin lispro [Humalog U-100 Insulin] 100 unit/mL solution 100 unit subcut DIRECTED RF: 0 insulin aspart U-100 [Novolog U-100 Insulin aspart] 100 unit/mL solution See Rx Instructions .ROUTE .COMPLEX Qty: 110 RF: 1 peg 400-propylene glycol 0.4-0.3 % drops 1 drops OP QAM RF: 0 cholecalciferol (vitamin D3) 25 mcg (1,000 unit) tablet 1,000 unit PO QAM PRN (Reason: (Drug) Ingestion) RF: 0 cyanocobalamin (vitamin B-12) 1,000 mcg tablet 1,000 mcg PO QAM PRN (Reason: Digestion) Qty: 100 RF: 0 naproxen 500 mg tablet 500 mg PO BID PRN (Reason: pain) Qty: 60 RF: 0 sildenafil 100 mg tablet 50 mg PO ONCE PRN (Reason: sexual activity) Qty: 7 RF: 3 Victoza 3-Bravo 0.6 mg/0.1 mL (18 mg/3 mL) pen injector 1.8 mg subcut QAM RF: 0 rosuvastatin 40 mg tablet 40 mg PO QAM RF: 0 Jardiance 10 mg tablet 10 mg PO QAM RF: 0 aspirin [Child Aspirin] 81 mg Tablet,Chewable 81 mg PO QAM RF: 0 Referrals Referrals: Bradly Chin, [Primary Care Provider] -
[2022-02-28 14:48] LABS: Basophils # (auto) 0.02 K/uL (0-0.2); Basophils % (auto) 0.3 %; Eosinophils % (auto) 4.3 %; Hematocrit (blood only) 40.5 % (42-52); Hemoglobin 13.2 g/dL (14.0-18.0); Immature Granulocytes # (auto) 0.03 K/uL (0.00-0.02); Immature Granulocytes % (auto) 0.4 %; Lymphocytes # (auto) 0.97 K/uL (1.2-3.4); Lymphocytes % (auto) 13.8 %; Mean Corpuscular Hemoglobin 28.3 pg (25-34); Mean Corpuscular Hgb Conc 32.6 g/dL (32-36); Mean Corpuscular Volume 86.9 fL (80-100); Mean Platelet Volume 8.8 fL (7.4-10.4); Monocytes # (auto) 0.46 K/uL (0.11-0.59); Monocytes % (auto) 6.6 %; Neutrophils # (auto) 5.24 K/uL (1.4-6.5); Neutrophils % (auto) 74.6 %; Platelet Count 297 K/uL (130-400); RDW Coefficient of Variation 14.9 % (11.5-14.5); RDW Standard Deviation 46.8 fL (36.4-46.3); Red Blood Count 4.66 M/uL (4.7-6.1); White Blood Count 7.02 K/uL (4.8-10.8)
[2022-02-28 15:14] LABS: BUN Creatinine Ratio 16.2 (10-20); Calcium 10.2 mg/dl (8.5-10.1); Est GFR (African American) 52.5 ml/min; Est GFR (Non-African American) 45.3 ml/min; Potassium 3.7 mmol/L (3.5-5.1)
--- NOTE | 2022-02-28 15:41 | Ultrasound Report ---
US abdomen limited HISTORY: 76 years-old Male right flankmass s/p biopsy eval for abscess acute right-sided flank pain COMPARISON: CT abdomen pelvis 10/27/2017 TECHNIQUE: Multiple real-time sonographic images of the right flank soft tissues were obtained assess ing grayscale appearance and color flow FINDINGS/IMPRESSION: Within the posterior right flank soft tissues there is a heterogeneous reportedly recently biopsied m ass with ill-defined margins containing a 12.0 x 12.0 x 6.0 cm collection with layering mobile debris . Findings may represent a superimposed abscess versus hematoma. Correlation with biopsy results sadiq mmended. ACT 112: Negative or not required by law. The above report was generated using voice recognition software. It may contain grammatical, syntax o r spelling errors. Electronically signed by: Hari Brady M.D. 02/28/2022 3:39 PM
[2022-02-28] MEDS ORDERED: SODIUM CHLORIDE 0.9% 1000ML 250 ML IV ONE (16:05)
[2022-02-28] MEDS ORDERED: PIPERACILLIN/TAZOBACTAM 4.5 GM/120 ML BAG IV ONE (16:25)
[2022-02-28] MEDS ORDERED: NovoLIN-R INSULIN PER UNIT CHARGE IV STA (16:29)
--- NOTE | 2022-02-28 17:11 | History & Physical Report ---
Date of Service February 28, 2022 Assessment & Plan (1) Abscess: Plan: Patient with a large flank fluid collection, consider abscess versus seroma, likely combination of the 2. Status post biopsy which was benign Place in nonmonitored observation Patient was given IV Zosyn. Considering recent contact with medical care, will change to IV vancomycin pending culture results Blood and wound cultures ER is already discussed with general surgery, suspect patient may require an open I&D in the near future Can use Tylenol for pain if necessary, patient is currently comfortable (2) Hypertension: Plan: Blood pressure currently stable on current regimen, can continue (3) CAD (coronary atherosclerotic disease): Plan: Continue medication as per outpatient, statin and low-dose aspirin. Currently asymptomatic (4) Diabetic nephropathy associated with type 2 diabetes mellitus: Plan: Continue insulin regimen as ordered Continue oral antihyperglycemics including Jardiance On gabapentin, can continue (5) Dyslipidemia: Plan: Continue rosuvastatin or pharmacy equivalent History of Present Illness Chief Complaint: R flank drainage Primary Care Provider: Bradly Chin, This is a 76-year-old male with past medical history of insulin-dependent keny betes mellitus, hyperlipidemia, and coronary disease presents today with a draining mass of his right flank. Patient is pleasant a good historian. Patient tells me approximately 3 weeks ago he noticed a large soft tissue mass in his right flank after taking a shower. At the time it was mildly sore but not overly painful. He saw his primary care physician and subsequently was seen in urgent care [facility] and was told that there was consideration that this was a solid mass. He had a CT scan at an outside facility that did have some concern with this. Patient was ultimately seen on 02/19 at [facility] where he had this area biopsied by interventional radiology. He tells me immediately post procedure, he had significant bloody drainage from the area but was told just to hold pressure and that it would eventually resolve. It essentially did almost completely until yesterday when it started to drain yellow material from the puncture site. At that point he presented to the [facility] room for further evaluation. I did review the records from [facility]. There is also a biopsy report that felt this was a reactive/benign atypical cyst possible only a resolving abscess but there was no evidence of malignancy. Ultrasound performed emergency room shows a large fluid-filled area. Patient is now being admitted for IV antibiotics and surgical evaluation. Allergies Allergy/AdvReac Type Severity Reaction Status Date / Time No Known Allergies Allergy Verified 02/28/22 15:11 Home Medications Medication Instructions Recorded Confirmed Type peg 400-propylene glycol 0.4 %-0.3 1 drops OP QAM ml 04/07/19 02/28/22 History % eye drops sildenafil 100 mg tablet 50 mg PO ONCE PRN #7 tab 10/04/20 02/28/22 Rx cholecalciferol (vitamin D3) 25 1,000 unit PO QAM PRN tab 03/25/21 02/28/22 History mcg (1,000 unit) tablet cyanocobalamin (vitamin B-12) 1,000 mcg PO QAM PRN #100 tab 03/25/21 02/28/22 History 1,000 mcg tablet evolocumab 140 mg/mL subcutaneous 140 mg SUBCUT .every other week #6 04/10/21 02/28/22 Rx pen injector ([place]agar Swansonick) ml gabapentin 600 mg tablet 1,200 mg PO BID 90 Days #360 tab 05/09/21 02/28/22 Rx icosapent ethyl 1 gram capsule 2 g PO BID #360 cap 08/29/21 02/28/22 Rx liraglutide 0.6 mg/0.1 mL (18 mg/3 1.8 mg SUBCUT QAM ml 09/19/21 02/28/22 History mL) subcutaneous pen injector (Victoza 3-Bravo) naproxen 500 mg tablet 500 mg PO BID PRN #60 tab 09/19/21 02/28/22 Rx duloxetine 30 mg capsule,delayed 30 mg PO BID #180 cap 12/02/21 02/28/22 Rx release (Cymbalta) Novolog U-100 Insulin aspart 100 See Rx Instructions .ROUTE 01/14/22 02/28/22 Rx unit/mL subcutaneous solution .COMPLEX #110 ml NS (insulin aspart U-100) aspirin 81 mg chewable tablet 81 mg PO QAM 02/28/22 02/28/22 History empagliflozin 10 mg tablet 10 mg PO QAM 02/28/22 02/28/22 History (Jardiance) rosuvastatin 40 mg tablet 40 mg PO QAM 02/28/22 02/28/22 History Past Med/Surg History Medical History Actinic keratosis Dyslipidemia Gastric ulcer GI bleed History of SCC (squamous cell carcinoma) of skin Hypertension Myasthenia gravis Proteinuria Sensorineural hearing loss of both ears Stage III chronic kidney disease Tinnitus, bilateral Vitamin D deficiency Surgical History S/P laparoscopic cholecystectomy Family History Mother No problems noted. Father Diabetes Myocardial infarction Stroke Other No pertinent family history Denies family history of Ovarian cancer Prostate cancer Breast cancer Lung cancer Colorectal cancer Social History Smoking Status: Current every day smoker Tobacco Type: Cigars Cigarettes Per Day: 1 cigar daily; Second Hand Exposure: Yes; Hx Alcohol Use: Yes Alcohol type: hard liquor Hx Substance Use: No Preferred Language: Tamazight Visual Impairment: Limited Hearing Ability: Normal marital status: Current Living Situation: Spouse current occupational status: retired How many Children do You have: 1 Feels Safe at Home: Yes Childhood Exposure to Second-Hand Smoke: Yes Diet Comment: no diet caffeine: Yes Dental Care, Regularly: Yes Physical Activity Frequency: Does not Exercise Seatbelt Use: always Sunscreen Use: No Review of Systems Constitutional: no fever, no chills, no weakness, no weight loss and no weight gain Eyes: as per Subjective / HPI Respiratory: no cough, no chest congestion, no dyspnea and no dyspnea on exertion Cardiovascular: no chest pain, no orthopnea, no palpitations, no lightheadedness and no edema Gastrointestinal: no abdominal pain, no nausea, no vomiting, no constipation and no diarrhea/loose stools Musculoskeletal: no back pain, no neck pain, no joint pain, no stiffness and no myalgia Integumentary: no rash Neurologic: no gait abnormality, no unsteadiness, no falls and no generalized weakness Physical Exam Constitutional: cooperative; no acute distress Neck: trachea midline, no thyromegaly Respiratory: normal respiratory effort Auscultation: lungs clear to auscultation bilaterally; no crackles, no rales, no rhonchi and no wheezes Cardiovascular: Rate/Rhythm: regular rate and regular rhythm Heart Sounds: normal S1 and normal S2 Gastrointestinal (Abdomen): Inspection/Auscultation: abdomen normal to inspection Percussion/Palpation: abdomen soft; abdomen nontender, no guarding, abdomen not rigid and no hepatosplenomegaly Skin: no rashes, warm and dry Large soft tissue mass noted in the right back/flank area. Some ecchymosis on top but no surrounding edema or erythema. Lateral to this is a small puncture wound, draining serous fluid with a small amount of purulence. Grossly nontender to patient. Results & Data Results & Data ([facility]) Vital Signs (Past 12 Hours) Vital Signs Temp Pulse Pulse Resp BP BP Pulse Ox 02/28/22 16:38 62 18 121/73 97 02/28/22 13:43 36.5 C 83 20 110/70 95 Laboratory Results Laboratory Results WBC 7.02 K/uL (4.8-10.8) 02/28/22 14:21 RBC 4.66 M/uL (4.7-6.1) L 02/28/22 14:21 Hgb 13.2 g/dL (14.0-18.0) L 02/28/22 14:21 Hct 40.5 % (42-52) L 02/28/22 14:21 MCV 86.9 fL (80-100) 02/28/22 14:21 MCH 28.3 pg (25-34) 02/28/22 14:21 MCHC 32.6 g/dL (32-36) 02/28/22 14:21 RDW Std Deviation 46.8 fL (36.4-46.3) H 02/28/22 14:21 RDW Coeff of Slim 14.9 % (11.5-14.5) H 02/28/22 14:21 Plt Count 297 K/uL (130-400) 02/28/22 14:21 MPV 8.8 fL (7.4-10.4) 02/28/22 14:21 Immature Gran % (Auto) 0.4 % 02/28/22 14:21 Neut % (Auto) 74.6 % 02/28/22 14:21 Lymph % (Auto) 13.8 % 02/28/22 14:21 [place] % (Auto) 6.6 % 02/28/22 14:21 Eos % (Auto) 4.3 % 02/28/22 14:21 Baso % (Auto) 0.3 % 02/28/22 14:21 Neut # (Auto) 5.24 K/uL (1.4-6.5) 02/28/22 14:21 Lymph # (Auto) 0.97 K/uL (1.2-3.4) L 02/28/22 14:21 [place] # (Auto) 0.46 K/uL (0.11-0.59) 02/28/22 14:21 Eos # (Auto) 0.30 K/uL (0-0.5) 02/28/22 14:21 Baso # (Auto) 0.02 K/uL (0-0.2) 02/28/22 14:21 Immature Gran # (Auto) 0.03 K/uL (0.00-0.02) H 02/28/22 14:21 Sodium 139 mmol/L (136-145) 02/28/22 14:21 Potassium 3.7 mmol/L (3.5-5.1) 02/28/22 14:21 Chloride 104 mmol/L (98-107) 02/28/22 14:21 Carbon Dioxide 29 mmol/L (21-32) 02/28/22 14:21 Anion Gap 6 (3-11) 02/28/22 14:21 BUN 24 mg/dl (6-23) H 02/28/22 14:21 Creatinine 1.48 mg/dl (0.6-1.4) H 02/28/22 14:21 Est Cr Clr Drug Dosing 50.0 ml/min 02/28/22 14:21 Est GFR ( Amer) 52.5 ml/min 02/28/22 14:21 Est GFR (Non-Af Amer) 45.3 ml/min 02/28/22 14:21 BUN/Creatinine Ratio 16.2 (10-20) 02/28/22 14:21 Glucose 312 mg/dl (70-99(Fasting)) H* 02/28/22 14:21 Calcium 10.2 mg/dl (8.5-10.1) H 02/28/22 14:21 Impressions Abdomen Ultrasound 02/28/22 14:13 US abdomen limited HISTORY: 76 years-old Male right flankmass s/p biopsy eval for abscess acute right-sided flank pain COMPARISON: CT abdomen pelvis 10/27/2017 TECHNIQUE: Multiple real-time sonographic images of the right flank soft tissues were obtained assessing grayscale appearance and color flow FINDINGS/IMPRESSION: Within the posterior right flank soft tissues there is a heterogeneous reportedly recently biopsied mass with ill-defined margins containing a 12.0 x 12.0 x 6.0 cm collection with layering mobile debris. Findings may represent a superimposed abscess versus hematoma. Correlation with biopsy results recommended. ACT 112: Negative or not required by law. The above report was generated using voice recognition software. It may contain grammatical, syntax or spelling errors. Electronically signed by: Hari Brady M.D. 02/28/2022 3:39 PM PG Care Time/CCT Total # of Minutes Spent Total Time Spent with Patient: Total time spent is greater than 50% in coordination of care (as documented) at patient's floor/unit and/or counseling patient: Coding Level of Care Code INT OBSERVATION CARE 70M LVL 3 Diagnoses Hypertension I10 CAD (coronary atherosclerotic disease) I25.10 Diabetic nephropathy associated with type 2 diabetes mellitus E11.21 Dyslipidemia E78.5 Abscess L02.91
[2022-02-28] MEDS ORDERED: VANCOMYCIN CONSULT ACTIVE PRN (21:24)
[2022-02-28] MEDS ORDERED: NAPROXEN 250 MG TAB PO PRN (21:24)
[2022-02-28] MEDS ORDERED: ONDANSETRON INJ 2 MG/ML 2 ML VIAL IV PRN (21:24)
[2022-02-28] MEDS ORDERED: ACETAMINOPHEN 325 MG TAB PO PRN (21:24)
[2022-02-28] MEDS ORDERED: PHARMACY GLYCEMIC MGMT CONSULT PRN (21:24)
[2022-02-28] MEDS ORDERED: INSULIN ASPART PER UNIT SC SCH (21:24)
[2022-02-28] MEDS ORDERED: GLUCAGON FOR INJ 1 MG VIAL SQ PRN (22:00)
[2022-02-28] MEDS ORDERED: GLUCOSE 10 TABS/TUBE PO PRN (22:00)
[2022-02-28] MEDS ORDERED: DEXTROSE 50% 50 ML SYRINGE IV PRN (22:00)
[2022-02-28] MEDS ORDERED: CARBOHYDRATES FOR HYPOGLYCEMIA PO PRN (22:00)
[2022-02-28] MEDS ORDERED: INSULIN ASPART 100 UNITS/ML VIAL SC PRN (22:00)
[2022-02-28] MEDS ORDERED: GLUCOSE 40% GEL 15 GM TUBE PO PRN (22:00)
[2022-02-28] MEDS ORDERED: VANCOMYCIN HCL 2,000 MG in SODIUM CHLORIDE 0.9% 500 ML IV ONE (22:00)
[2022-02-28] MEDS: GABAPENTIN 600 MG TAB PO SCH (22:53)
[2022-02-28] MEDS: DULoxetine HCL 30 MG CAP PO SCH (22:57)
[2022-02-28] MEDS: NovoLOG INSULIN PUMP SCH (23:03)
--- NOTE | 2022-03-01 01:19 | Surgery Consultation ---
Date of Consultation March 01, 2022 Assessment & Plan (1) Abdominal wall mass of right flank: -no large amount of fluctuance -positive erythema -agree with antibiotics -may need I&D if does not improve over next day History of Present Illness Attending Physician: Brandyn Steward, DO History of Present Illness This is a 76-year-old male with past medical history of insulin-dependent diabetes mellitus, hyperlipidemia, and coronary disease presents today with a draining mass of his right flank. He initially had a large soft tissue mass in his right flank, it was painful. He had a CT scan and had a biopsy by interventional radiology. He had significant bloody drainage from the area but was told just to hold pressure and that it would eventually resolve. It essentially did almost completely until yesterday when it started to drain yellow material from the puncture site. The biopsy report was a reactive/benign atypical cyst possible only a resolving abscess but there was no evidence of malignancy. Ultrasound performed emergency room shows a large fluid-filled area. Patient is now being admitted for IV antibiotics. Allergies Allergy/AdvReac Type Severity Reaction Status Date / Time No Known Allergies Allergy Verified 02/28/22 15:11 Home Medications Medication Instructions Recorded Confirmed Type peg 400-propylene glycol 0.4 %-0.3 1 drops OP QAM ml 04/07/19 02/28/22 History % eye drops sildenafil 100 mg tablet 50 mg PO ONCE PRN #7 tab 10/04/20 02/28/22 Rx cholecalciferol (vitamin D3) 25 1,000 unit PO QAM PRN tab 03/25/21 02/28/22 History mcg (1,000 unit) tablet cyanocobalamin (vitamin B-12) 1,000 mcg PO QAM PRN #100 tab 03/25/21 02/28/22 History 1,000 mcg tablet evolocumab 140 mg/mL subcutaneous 140 mg SUBCUT .every other week #6 04/10/21 02/28/22 Rx pen injector (Repatha SureKwanick) ml gabapentin 600 mg tablet 1,200 mg PO BID 90 Days #360 tab 05/09/21 02/28/22 Rx icosapent ethyl 1 gram capsule 2 g PO BID #360 cap 08/29/21 02/28/22 Rx liraglutide 0.6 mg/0.1 mL (18 mg/3 1.8 mg SUBCUT QAM ml 09/19/21 02/28/22 History mL) subcutaneous pen injector (Victoza 3-Bravo) naproxen 500 mg tablet 500 mg PO BID PRN #60 tab 09/19/21 02/28/22 Rx duloxetine 30 mg capsule,delayed 30 mg PO BID #180 cap 12/02/21 02/28/22 Rx release (Cymbalta) Novolog U-100 Insulin aspart 100 See Rx Instructions .ROUTE 01/14/22 02/28/22 Rx unit/mL subcutaneous solution .COMPLEX #110 ml NS (insulin aspart U-100) aspirin 81 mg chewable tablet 81 mg PO QAM 02/28/22 02/28/22 History empagliflozin 10 mg tablet 10 mg PO QAM 02/28/22 02/28/22 History (Jardiance) rosuvastatin 40 mg tablet 40 mg PO QAM 02/28/22 02/28/22 History Patient History Medical History Actinic keratosis Dyslipidemia Gastric ulcer GI bleed History of SCC (squamous cell carcinoma) of skin Hypertension Myasthenia gravis Proteinuria Sensorineural hearing loss of both ears Stage III chronic kidney disease Tinnitus, bilateral Vitamin D deficiency Surgical History S/P laparoscopic cholecystectomy Family History Mother No problems noted. Father Diabetes Myocardial infarction Stroke Other No pertinent family history Denies family history of Ovarian cancer Prostate cancer Breast cancer Lung cancer Colorectal cancer Social History Smoking Status: Current every day smoker Tobacco Type: Cigars Cigarettes Per Day: 1 cigar daily; Second Hand Exposure: Yes; Hx Alcohol Use: Yes Alcohol type: hard liquor Hx Substance Use: No Preferred Language: Dominican Communication Ability: Effective Visual Impairment: Limited Hearing Ability: Normal Scheme Technician Required: No Beliefs That Will Affect Care: None marital status: Current Living Situation: Spouse current occupational status: retired How many Children do You have: 1 Other Information That Helps Us Care for You: No Feels Safe at Home: Yes Safety Concerns: Feels Safe At This Time Childhood Exposure to Second-Hand Smoke: Yes Diet Comment: no diet caffeine: Yes Dental Care, Regularly: Yes Physical Activity Frequency: Does not Exercise Seatbelt Use: always Sunscreen Use: No Assistive Devices: Glasses Review of Systems Constitutional: no fever and no chills Eyes: no problem reported Ear, Nose, Mouth, Throat: no problem reported Respiratory: no cough and no dyspnea Cardiovascular: no chest pain and no dyspnea Gastrointestinal: no abdominal pain, no nausea and no vomiting Genitourinary: no dysuria or no difficulty urinating Musculoskeletal: + back pain (right flank/back loculated fluid collection with erythema) Integumentary: no rash Neurologic: no localized weakness and no generalized weakness Psychiatric: no behavioral changes Hematologic / Lymphatic: no easy bleeding and no easy bruising Physical Exam Constitutional: well developed and well nourished Eyes: PERRL, conjunctivae normal, anicteric sclerae ENMT: external ear and nose normal, oropharynx normal Neck: trachea midline Respiratory: normal respiratory effort, lungs clear to auscultation Cardiovascular: RRR, no murmur, no edema Gastrointestinal (Abdomen): Inspection/Auscultation: abdomen normal to inspection; abdomen not distended Percussion/Palpation: abdomen soft; abdomen nontender Musculoskeletal: Head/Neck/Chest: normocephalic and head atraumatic Extremities: extremities normal to inspection Skin: no rashes, warm and dry right back/flank erythematous mass with some drainage Psychiatric: Orientation: alert and oriented x 3 Lymphatic: + lymphedema; no lymphadenopathy Results & Data ([facility]) Vital Signs (Past 12 Hours) Vital Signs Temp Pulse Pulse Resp BP BP Pulse Ox 02/28/22 21:30 36.9 C 74 164/80 H 97 02/28/22 20:00 68 18 149/88 H 99 02/28/22 18:51 84 149/74 H 98 02/28/22 18:00 74 18 96 02/28/22 16:38 62 18 121/73 97 02/28/22 13:43 36.5 C 83 20 110/70 95
[2022-03-01] MEDS: NovoLOG INSULIN PUMP SCH ×4 (08:20→21:45)
[2022-03-01] MEDS ORDERED: Continuous Glucose Monitor SCH (08:30)
[2022-03-01 08:48] LABS: Calcium 9.7 mg/dl (8.5-10.1); Creatinine Clr Calc Pharmacy 60.4 ml/min; Est GFR (African American) 66.3 ml/min; Est GFR (Non-African American) 57.2 ml/min; Potassium 3.6 mmol/L (3.5-5.1)
[2022-03-01 08:49] LABS: Basophils # (auto) 0.02 K/uL (0-0.2); Basophils % (auto) 0.2 %; Eosinophils # (auto) 0.32 K/uL (0-0.5); Eosinophils % (auto) 3.9 %; Hematocrit (blood only) 41.1 % (42-52); Hemoglobin 13.4 g/dL (14.0-18.0); Immature Granulocytes # (auto) 0.02 K/uL (0.00-0.02); Immature Granulocytes % (auto) 0.2 %; Lymphocytes # (auto) 0.74 K/uL (1.2-3.4); Mean Corpuscular Hemoglobin 28.1 pg (25-34); Mean Corpuscular Hgb Conc 32.6 g/dL (32-36); Mean Corpuscular Volume 86.2 fL (80-100); Mean Platelet Volume 8.8 fL (7.4-10.4); Monocytes # (auto) 0.64 K/uL (0.11-0.59); Monocytes % (auto) 7.8 %; Neutrophils # (auto) 6.44 K/uL (1.4-6.5); Neutrophils % (auto) 78.9 %; Platelet Count 271 K/uL (130-400); RDW Coefficient of Variation 14.8 % (11.5-14.5); RDW Standard Deviation 46.8 fL (36.4-46.3); Red Blood Count 4.77 M/uL (4.7-6.1); White Blood Count 8.18 K/uL (4.8-10.8)
[2022-03-01] MEDS ORDERED: PIPERACILLIN/TAZOBACTAM 3.375 GM in DEXTROSE 5% 100 ML IV STA (08:50)
[2022-03-01] MEDS: ASPIRIN 81 MG CHEW PO SCH (08:56)
[2022-03-01] MEDS: ARTIFICIAL TEARS OP SCH (08:56)
[2022-03-01] MEDS: GABAPENTIN 600 MG TAB PO SCH ×2 (08:57→21:43)
[2022-03-01] MEDS: ROSUVASTATIN CALCIUM 20 MG TAB PO SCH (08:58)
[2022-03-01] MEDS: DULoxetine HCL 30 MG CAP PO SCH ×2 (09:05→21:43)
--- NOTE | 2022-03-01 09:25 | Pharmacy Report ---
Pharmacy Vanc AUC Short Note - Date of Service March 01, 2022 - Assessment & Plan Assessment 76 year old M receiving IV vancomycin for treatment of possible abdominal wall abscess. Blood and lower back surface wound cultures pending. Renal function stable. Day # 2 of antimicrobial therapy. Plan Vancomycin * AUC/LEROY is the preferred PK/PD target for vancomycin * AUC guided dosing is effective and associated with decreased risk of nephrotoxicity compared to traditional trough targets * Trough level of 15.7 mcg/mL is predicted to achieve target AUC/LEROY of 400-600 mg/L.hr and may be associated with a 11 % risk of nephrotoxicity * Continue dose of 1500 mg IV every 24 hours * Random level tomorrow AM Pharmacy will continue to follow and will adjust dose/frequency as necessary. Thank you.
[2022-03-01 10:40] LABS: Estimated Average Glucose 197 mg/dl; Hemoglobin A1C 8.5 % (4.5-5.6)
[2022-03-01] MEDS: VANCOMYCIN HCL 1,500 MG in SODIUM CHLORIDE 0.9% 500 ML IV SCH (12:51)
--- NOTE | 2022-03-01 14:59 | XRay Report ---
XR chest 1V portable CLINICAL HISTORY: pre-op, chronic sob TECHNIQUE: Single frontal radiograph of the chest was obtained. Comparison: Comparison is made to chest radiograph 10/27/2017 FINDINGS: No lines and tubes are seen. The cardiomediastinal silhouette is normal. The lungs are clear. No evid ence of pleural effusion or pneumothorax. IMPRESSION: No acute abnormalities and in particular no evidence of pneumonia. ACT 112: Negative or not required by law. Electronically signed by: Andrei Pierce M.D. 03/01/2022 2:58 PM
--- NOTE | 2022-03-01 15:28 | Pharmacy Report ---
Pharmacy Glycemic Short Note 2 - Date of Service March 01, 2022 - Glycemic Short BSG Results (Last 24 hours): 02/28/22 02/28/22 03/01/22 19:19 21:30 08:06 Glucose 198 H POC Glucose 157 H 216 H 03/01/22 03/01/22 08:12 12:28 Glucose POC Glucose 188 H 238 H OUTPATIENT ANTIDIABETIC REGIMEN: * Novolog Omnipod insulin pump * 1.7 units/hr 0213-6451 * 1.4 units/hr 4783-5281 * unknown CF * No CR * TDD = ~ 38 units/day basal + boluses * Jardiance 10mg daily * Victoza 1.8mg SQ QAM ASSESSMENT: * 76 year old male admitted for IV antibiotics for right flank abscess, on IV Vancomycin and Zosyn * Patient managed on insulin pump plus oral and SQ anti-diabetic agents as outpatient * Patient continuing insulin pump while inpatient, does not cover CHO intake, only corrects based on blood sugar * Blood sugar above goal, if this continues will increase accuchecks so that he can give more correctional boluses from pump as needed PLAN FOR INPATIENT GLYCEMIC CONTROL: * Hold outpatient Jardiance and Victoza, non-formulary * Basal insulin * Patient's own Novolog Omnipod insulin pump at rates as above * Bolus insulin * based on pump settings and blood sugar reading
[2022-03-01] MEDS: PIPERACILLIN/TAZOBACTAM 3.375 GM in DEXTROSE 5% 100 ML IV SCH ×2 (16:06→22:11)
--- NOTE | 2022-03-01 18:08 | Hospitalist Progress Note ---
Date of Service March 01, 2022 Assessment & Plan (1) Abscess: Plan: Patient with a large flank fluid collection, consider abscess/cyst/seroma, likely combination of the 2. Status post biopsy which was benign Place in nonmonitored observation Continue vancomycin, will add back Zosyn for anaerobic and GN coverage. Blood and wound cultures pending but no organisms on gram stain Pre-op CXR - no acute pathology, EKG - NSR with no acute ischemic changes. Revised cardiac risk index 0 - 3.9% 30 day risk of , [place] or cardiac arrest. Appreciate general surgery consult - planning on I&D tomorrow, IVF and NPO after midnight (2) Hypertension: Plan: Blood pressure currently stable on current regimen, can continue (3) CAD (coronary atherosclerotic disease): Plan: Continue medication as per outpatient, statin and low-dose aspirin. Currently asymptomatic (4) Diabetic nephropathy associated with type 2 diabetes mellitus: Plan: Pharmacy consulted for glycemic control however patient will manage his own insulin today using pump Jardiance and Victoza not available on hospital formulary On gabapentin, can continue HbA1C 8.5 (5) Dyslipidemia: Plan: Continue rosuvastatin Plan: VTE Prophylaxis - Start chemical prophylaxis post operatively Diet - T2DM Disposition - continued observation on med/surg Admission and Anticipated Discharge Date Admission Date: February 28, 2022 Subjective No fever, chills. Discussed drainage with his - description of more clear serous fluid than pus. Surgery planning on incision and drainage tomorrow. Regarding pre-op clearance: no prior [place] or stroke. Generalized deconditioning and some shortness of breath walking up one flight of stairs but this is chronic without acute change. No chest pain on exertion. Review of Systems Review of Systems: All systems reviewed & are unremarkable except as noted in Subjective Physical Exam Constitutional: well developed and well nourished Neck: trachea midline Respiratory: normal respiratory effort, lungs clear to auscultation Cardiovascular: RRR, no murmur, no edema Gastrointestinal (Abdomen): Inspection/Auscultation: abdomen normal to inspection and normal bowel sounds; abdomen not distended Percussion/Palpation: abdomen soft; abdomen nontender Skin: Right back mass with mild erythema surrounding biopsy insertion point but not over mass itself Psychiatric: Orientation: alert and oriented x 3 Results & Data Results & Data ([facility]) Vital Signs (Past 12 Hours) Vital Signs Temp Pulse Resp BP Pulse Ox 03/01/22 15:36 36.6 C 69 18 95 03/01/22 07:35 36.6 C 69 18 180/75 H 96 PG Care Time/CCT Total # of Minutes Spent Total Time Spent with Patient: Total time spent is greater than 50% in coordination of care (as documented) at patient's floor/unit and/or counseling patient: Coding Level of Care Code 95202 Subseq Obs Care Lvl 2 Diagnoses Abscess L02.91 Hypertension I10 CAD (coronary atherosclerotic disease) I25.10 Diabetic nephropathy associated with type 2 diabetes mellitus E11.21 Dyslipidemia E78.5
[2022-03-01] MEDS: [UNRECOGNIZED DRUG - REMARK] PO SCH (21:43)
[2022-03-02] MEDS: NovoLOG INSULIN PUMP SCH ×6 (00:06→20:36)
[2022-03-02] MEDS: PIPERACILLIN/TAZOBACTAM 3.375 GM in DEXTROSE 5% 100 ML IV SCH ×3 (05:54→22:05)
[2022-03-02 06:03] LABS: Basophils # (auto) 0.02 K/uL (0-0.2); Basophils % (auto) 0.3 %; Eosinophils # (auto) 0.41 K/uL (0-0.5); Eosinophils % (auto) 5.9 %; Hematocrit (blood only) 40.3 % (42-52); Hemoglobin 13.2 g/dL (14.0-18.0); Immature Granulocytes # (auto) 0.02 K/uL (0.00-0.02); Immature Granulocytes % (auto) 0.3 %; Lymphocytes # (auto) 0.96 K/uL (1.2-3.4); Lymphocytes % (auto) 13.8 %; Mean Corpuscular Hemoglobin 28.4 pg (25-34); Mean Corpuscular Hgb Conc 32.8 g/dL (32-36); Mean Corpuscular Volume 86.9 fL (80-100); Mean Platelet Volume 8.7 fL (7.4-10.4); Monocytes # (auto) 0.51 K/uL (0.11-0.59); Monocytes % (auto) 7.3 %; Neutrophils # (auto) 5.02 K/uL (1.4-6.5); Neutrophils % (auto) 72.4 %; Platelet Count 281 K/uL (130-400); RDW Coefficient of Variation 14.6 % (11.5-14.5); RDW Standard Deviation 46.7 fL (36.4-46.3); Red Blood Count 4.64 M/uL (4.7-6.1); White Blood Count 6.94 K/uL (4.8-10.8)
[2022-03-02 06:24] LABS: BUN Creatinine Ratio 20.8 (10-20); Calcium 9.6 mg/dl (8.5-10.1); Est GFR (African American) 64.4 ml/min; Est GFR (Non-African American) 55.6 ml/min; Potassium 3.6 mmol/L (3.5-5.1)
--- NOTE | 2022-03-02 06:58 | Anesthesiology Consultation ---
Date of Service March 02, 2022 Assessment & Plan (1) Encounter for pre-operative examination: Chart Review Chart Review: Acceptable Risk for Surgery and Patient NOT seen in Pre Admission Testing Consults Requested none Additional Notes Hx of ocular MG, takes azathioprine, no known skeletal muscle/respiratory musc ular involvement. History Surgery Operation Date: 03/02/22 07:30 Proposed Procedures p Incision and Drainage General(Right) - Manpreet Werner MD Height/Weight Height: 5 ft 11 in Weight: 94.3 kg Allergies Allergy/AdvReac Type Severity Reaction Status Date / Time No Known Allergies Allergy Verified 02/28/22 15:11 Medications Home Medications Medication Instructions Recorded Confirmed Last Taken peg 400-propylene glycol 0.4 %-0.3 1 drops OP QAM ml 04/07/19 02/28/22 02/28/22 % eye drops sildenafil 100 mg tablet 50 mg PO ONCE PRN #7 tab 10/04/20 02/28/22 Unknown cholecalciferol (vitamin D3) 25 1,000 unit PO QAM PRN tab 03/25/21 02/28/22 02/28/22 mcg (1,000 unit) tablet cyanocobalamin (vitamin B-12) 1,000 mcg PO QAM PRN #100 tab 03/25/21 02/28/22 1,000 mcg tablet evolocumab 140 mg/mL subcutaneous 140 mg SUBCUT .every other week #6 04/10/21 02/28/22 Unknown pen injector (Repatha SureClick) ml gabapentin 600 mg tablet 1,200 mg PO BID 90 Days #360 tab 05/09/21 02/28/22 02/28/22 icosapent ethyl 1 gram capsule 2 g PO BID #360 cap 08/29/21 02/28/22 02/28/22 liraglutide 0.6 mg/0.1 mL (18 mg/3 1.8 mg SUBCUT QAM ml 09/19/21 02/28/22 Unknown mL) subcutaneous pen injector (Victoza 3-Bravo) naproxen 500 mg tablet 500 mg PO BID PRN #60 tab 09/19/21 02/28/22 Unknown duloxetine 30 mg capsule,delayed 30 mg PO BID #180 cap 12/02/21 02/28/22 02/28/22 release (Cymbalta) Novolog U-100 Insulin aspart 100 See Rx Instructions .ROUTE 01/14/22 02/28/22 Unknown unit/mL subcutaneous solution .COMPLEX #110 ml NS (insulin aspart U-100) aspirin 81 mg chewable tablet 81 mg PO QAM 02/28/22 02/28/22 02/28/22 empagliflozin 10 mg tablet 10 mg PO QAM 02/28/22 02/28/22 02/28/22 (Jardiance) rosuvastatin 40 mg tablet 40 mg PO QAM 02/28/22 02/28/22 02/28/22 Active Medications Generic Name Dose Route Start Last Admin Trade Name Freq PRN Reason Stop Dose Admin Artificial Tears 1 drops 03/01/22 09:00 03/01/22 08:56 Artificial Tears OP 03/31/22 08:59 Not Given QAM LISA Aspirin 81 mg 03/01/22 09:00 03/01/22 08:56 Aspirin 81 Mg Chew PO 03/31/22 08:59 81 mg QAM LISA Administration Duloxetine HCl 30 mg 02/28/22 21:24 03/01/22 21:43 Duloxetine Hcl 30 Mg Cap PO 03/30/22 21:23 30 mg BID LISA Administration Gabapentin 1,200 mg 02/28/22 21:24 03/01/22 21:43 Gabapentin 600 Mg Tab PO 03/30/22 21:23 1,200 mg BID LISA Administration Vancomycin HCl 1,500 mg/ 530 mls @ 200 mls/hr 03/01/22 12:00 03/01/22 16:02 Sodium Chloride IV 03/08/22 11:59 Infused Q24H LISA Infusion Piperacillin Sod/Tazobactam 115 mls @ 28.75 mls/hr 03/01/22 14:00 03/02/22 05:54 Sod 3.375 gm/ Dextrose IV 03/08/22 13:59 28.8 mls/hr Q8H LISA Administration Protocol Lactated Ringer's 1,000 mls @ 125 mls/hr 03/02/22 00:00 03/02/22 00:00 Lr IV 04/01/22 00:00 125 mls/hr .Q8H LISA Administration *Icosapent Ethyl*Non 2 ea 03/01/22 21:00 03/01/22 21:43 -Form Patient's Own PO 03/31/22 20:59 2 cap Med BID LISA Administration Rosuvastatin Calcium 40 mg 03/01/22 09:00 03/01/22 08:58 Rosuvastatin Calcium 20 Mg Tab PO 03/31/22 08:59 40 mg QAM LISA Administration NPO Date Last Intake of Fluids: 03/01/22 Time Last Intake of Fluids: 23:50 Date Last Intake of Solids: 03/01/22 Time Last Intake of Solids: 17:30 Past Medical History Medical History Actinic keratosis Dyslipidemia Gastric ulcer GI bleed History of SCC (squamous cell carcinoma) of skin Hypertension Myasthenia gravis Proteinuria Sensorineural hearing loss of both ears Stage III chronic kidney disease Tinnitus, bilateral Vitamin D deficiency Past Family History Family History Mother No problems noted. Father Diabetes Myocardial infarction Stroke Other No pertinent family history Denies family history of Ovarian cancer Prostate cancer Breast cancer Lung cancer Colorectal cancer Past Surgical History Surgical History S/P laparoscopic cholecystectomy Social History Smoking Status: Current every day smoker tobacco type: cigars Smoking cigarettes per day: 1 cigar daily Hx Alcohol Use: Yes Alcohol type: hard liquor alcohol intake frequency: holidays/special occasions only Hx Substance Use: No Physical Exam Vital Signs Last Vital Signs Temp 98.2 F 03/02/22 00:19 Pulse 70 03/02/22 00:19 Resp 18 03/02/22 00:19 BP 167/81 H 03/02/22 00:19 Pulse Ox 96 03/02/22 00:19 Testing Laboratory Results 03/02/22 05:35 03/02/22 05:35 Hemoglobin A1c 8.5 % (4.5-5.6) H 03/01/22 08:06 02/28/22 17:15 Aerobic Blood Culture - Preliminary Blood No growth in Aerobic bottle after 24 hours. Anaerobic Blood Culture - Preliminary No growth in Anaerobic bottle after 24 hours. 02/28/22 16:39 Aerobic Blood Culture - Preliminary Blood No growth in Aerobic bottle after 24 hours. Anaerobic Blood Culture - Preliminary No growth in Anaerobic bottle after 24 hours. 02/28/22 14:11 Gram Stain - Final Back,Lower Wound Culture - Preliminary Pin-point growth present, reincubating. 03/02/22 03/02/22 03/01/22 03:56 00:05 21:04 POC Glucose 282 H 283 H 344 H* 03/01/22 21:02 POC Glucose 333 H* Electrocardiogram Date: 03/01/22 Findings: + NSR @ Chest X-Ray Date: 03/01/22 Findings: + NAD
[2022-03-02] MEDS ORDERED: MIDAZOLAM HCL 1 MG/ML 2ML VIAL ONE (08:03)
[2022-03-02] MEDS ORDERED: fentaNYL citrate 100 MCG/2 ML VIAL ONE (08:03)
[2022-03-02] MEDS: LACTATED RINGER'S 1,000 ML IV SCH ×2 (08:11)
--- NOTE | 2022-03-02 08:19 | History & Physical Bridge Note ---
Date of Service March 02, 2022 History & Physical Bridge Note I have examined the patient, reviewed the History & Physical and in the interval since the performance of the History & Physical I have noted the following changes of clinical significance: no changes noted
[2022-03-02] MEDS ORDERED: ONDANSETRON INJ 2 MG/ML 2 ML VIAL IV PRN (08:33)
[2022-03-02] MEDS ORDERED: fentaNYL citrate 100 MCG/2 ML VIAL IV PRN (08:33)
[2022-03-02] MEDS ORDERED: ATROPINE SULFATE 0.1 MG/ML 10ML SYR IV PRN (08:33)
[2022-03-02] MEDS ORDERED: ePHEDrine sulfate 50 MG/ML AMP IV PRN (08:33)
[2022-03-02] MEDS ORDERED: PROPOFOL IV EMULSION 10 MG/ML 20 ML VIAL IV ONE (08:35)
[2022-03-02] MEDS ORDERED: ONDANSETRON INJ 2 MG/ML 2 ML VIAL ONE (09:02)
--- NOTE | 2022-03-02 09:20 | Post Operative Brief Note ---
Immediate Post Op Note v1 Date of Surgery March 02, 2022 Pre & Post Diagnosis Operation Date: 03/02/22 07:30 <No data on this case meets the specified criteria> I identified the patient and participated in the time-out.: Yes Procedure Operation Date: 03/02/22 07:30 <No data on this case meets the specified criteria> Surgeon Manpreet Werner MD Rn Orthopedic none Estimated Blood Loss 4 Findings Consistent with Post-Op Diagnosis
--- NOTE | 2022-03-02 09:21 | Pharmacy Report ---
Pharmacy Vanc AUC Short Note - Date of Service March 02, 2022 - Assessment & Plan Assessment 76 year old M receiving vancomycin and zosyn for treatment of a large flank fluid collection. Plan for I&D today. Blood cultures NGTD, back surface wound culture (+) GNB. Day # 3 of antimicrobial therapy. Plan Vancomycin * AUC/LEROY is the preferred PK/PD target for vancomycin. AUC guided dosing is effective and associated with decreased risk of nephrotoxicity compared to t raditional trough targets * Non-steady state random level (~17hr level) this AM, 15.6mcg/mL, is predicted to achieve steady state target AUC/LEROY of 511mg/L.hr (target 400-600). * Continue dose of 1500 mg IV every 24 hours * Will repeat a level around 48 hours or sooner if renal function changes. Pharmacy will continue to follow and will adjust dose/frequency as necessary. Thank you.
[2022-03-02] MEDS ORDERED: LIDOCAINE 1% LOCAL 20 ML VIAL INJ ONE (09:32)
[2022-03-02] MEDS ORDERED: oxyCODONE/ACETAMINOPHEN 5mg/325mg TAB PO PRN ×2 (10:25)
[2022-03-02] MEDS ORDERED: MoRPHine SULFATE 4 MG/ML 1 ML CARP\\VIAL IV PRN (10:25)
[2022-03-02] MEDS ORDERED: MoRPHine SULFATE 2 MG/ML CARP IV PRN (10:25)
[2022-03-02] MEDS: ASPIRIN 81 MG CHEW PO SCH (10:26)
[2022-03-02] MEDS: ARTIFICIAL TEARS OP SCH (10:26)
[2022-03-02] MEDS: ROSUVASTATIN CALCIUM 20 MG TAB PO SCH (10:27)
[2022-03-02] MEDS: GABAPENTIN 600 MG TAB PO SCH ×2 (10:27→20:40)
[2022-03-02] MEDS: [UNRECOGNIZED DRUG - REMARK] PO SCH ×2 (10:28→20:40)
[2022-03-02] MEDS: DULoxetine HCL 30 MG CAP PO SCH ×2 (10:35→20:40)
--- NOTE | 2022-03-02 10:49 | Anesthesiology Progress Note ---
Date of Service March 02, 2022 Anesthesia Post Procedure Vital Signs Vital Signs: Temp Pulse Pulse Pulse Resp BP Pulse Ox 03/02/22 09:45 68 18 151/73 H 95 03/02/22 09:35 68 16 134/74 94 03/02/22 09:29 97.3 F L 68 18 131/73 97 03/02/22 07:51 97.7 F 69 18 168/81 H 97 03/02/22 00:19 98.2 F 70 18 167/81 H 96 03/01/22 15:36 97.9 F 69 18 95 Transfer of Care Handoff Completed per policy Notes Mental Status: alert / awake / arousable and participated in evaluation Patient Amnestic to Procedure: Yes Nausea / Vomiting: adequately controlled Pain: adequately controlled Airway Patency, RR, SpO2: stable & adequate BP & HR: stable & adequate Hydration State: stable & adequate Anesthetic Complications: no major complications apparent and Pt Satisfied with anesthetic care
[2022-03-02] MEDS: VANCOMYCIN HCL 1,500 MG in SODIUM CHLORIDE 0.9% 500 ML IV SCH (12:19)
--- NOTE | 2022-03-02 12:21 | Electrocardiogram Report ---
Test Reason : Blood Pressure : / mmHG Vent. Rate : 065 BPM Atrial Rate : 065 BPM P-R Int : 172 ms QRS Dur : 090 ms QT Int : 406 ms P-R-T Axes : 021 031 038 degrees QTc Int : 422 ms Normal sinus rhythm Normal ECG When compared with ECG of 29-OCT-2017 06:18, QT has shortened Confirmed by Sanchez Us ([id number]) on 03/02/2022 12:21:20 PM Referred By: Bradly Chin Confirmed By:Denny Us
--- NOTE | 2022-03-02 14:57 | Hospitalist Progress Note ---
Date of Service March 02, 2022 Assessment & Plan (1) Abscess: Plan: Following biopsy which was benign POD #0 I&D performed by Dr Werner Continue vancomycin and Zosyn pending culture results. Blood, wound and surgical cultures pending - GNB on wound culture Appreciate surgery management (2) Hypertension: Plan: Blood pressure currently stable on current regimen, can continue (3) CAD (coronary atherosclerotic disease): Plan: Continue medication as per outpatient, statin and low-dose aspirin. Currently asymptomatic (4) Diabetic nephropathy associated with type 2 diabetes mellitus: Plan: Pharmacy consulted for glycemic control however patient will manage his own insulin today using pump Jardiance and Victoza not available on hospital formulary On gabapentin, can continue HbA1C 8.5 (5) Dyslipidemia: Plan: Continue rosuvastatin Plan: VTE Prophylaxis - Checmical prophyalxis when ok by surgery Diet - T2DM Disposition - switch to full admission on med/surg Admission and Anticipated Discharge Date Admission Date: February 28, 2022 Subjective Patient see post operatively. Doing well. No concerns or questions. Surgical dressing with blood on outside dressing but not completely soaked. Review of Systems Review of Systems: All systems reviewed & are unremarkable except as noted in Subjective Physical Exam Constitutional: well developed and well nourished Respiratory: normal respiratory effort, lungs clear to auscultation Cardiovascular: RRR, no murmur, no edema Gastrointestinal (Abdomen): Inspection/Auscultation: abdomen normal to inspection and normal bowel sounds; abdomen not distended Percussion/Palpation: abdomen soft; abdomen nontender Skin: Surgical dressing with blood on outside dressing but not soaked through Psychiatric: Orientation: alert and oriented x 3 Results & Data Results & Data ([facility]) Vital Signs (Past 12 Hours) Vital Signs Temp Pulse Pulse Resp BP Pulse Ox 03/02/22 14:14 36.6 C 76 18 156/83 H 18 L 03/02/22 13:00 37.2 C 71 18 161/73 H 95 03/02/22 12:00 36.5 C 70 18 162/81 H 95 03/02/22 11:20 36.6 C 84 18 170/82 H 96 03/02/22 11:12 36.3 C L 68 20 162/77 H 96 03/02/22 10:35 36.7 C 74 20 156/81 H 97 06/12/22 10:20 36.4 C L 73 18 163/76 H 96 03/02/22 09:45 68 18 151/73 H 95 03/02/22 09:35 68 16 134/74 94 03/02/22 09:29 36.3 C L 68 18 131/73 97 03/02/22 07:51 36.5 C 69 18 168/81 H 97 PG Care Time/CCT Total # of Minutes Spent Total Time Spent with Patient: Total time spent is greater than 50% in coordination of care (as documented) at patient's floor/unit and/or counseling patient: Coding Level of Care Code 06067 Subseq Hosp Care Lvl 2 Diagnoses Abscess L02.91 Hypertension I10 CAD (coronary atherosclerotic disease) I25.10 Diabetic nephropathy associated with type 2 diabetes mellitus E11.21 Dyslipidemia E78.5
[2022-03-03] MEDS: PIPERACILLIN/TAZOBACTAM 3.375 GM in DEXTROSE 5% 100 ML IV SCH ×3 (05:49→22:22)
[2022-03-03] MEDS: NovoLOG INSULIN PUMP SCH ×4 (08:44→22:21)
[2022-03-03] MEDS: [UNRECOGNIZED DRUG - REMARK] PO SCH ×2 (09:27→19:29)
[2022-03-03] MEDS: ROSUVASTATIN CALCIUM 20 MG TAB PO SCH (09:28)
[2022-03-03] MEDS: ASPIRIN 81 MG CHEW PO SCH (09:28)
[2022-03-03] MEDS: GABAPENTIN 600 MG TAB PO SCH ×2 (09:28→19:28)
[2022-03-03] MEDS: DULoxetine HCL 30 MG CAP PO SCH ×2 (09:28→19:29)
[2022-03-03] MEDS: ARTIFICIAL TEARS OP SCH (09:29)
[2022-03-03 10:01] LABS: Basophils # (auto) 0.02 K/uL (0-0.2); Basophils % (auto) 0.3 %; Eosinophils # (auto) 0.45 K/uL (0-0.5); Eosinophils % (auto) 5.8 %; Hematocrit (blood only) 39.4 % (42-52); Hemoglobin 13.3 g/dL (14.0-18.0); Immature Granulocytes # (auto) 0.02 K/uL (0.00-0.02); Immature Granulocytes % (auto) 0.3 %; Lymphocytes # (auto) 0.65 K/uL (1.2-3.4); Lymphocytes % (auto) 8.3 %; Mean Corpuscular Hemoglobin 28.8 pg (25-34); Mean Corpuscular Hgb Conc 33.8 g/dL (32-36); Mean Corpuscular Volume 85.3 fL (80-100); Mean Platelet Volume 8.5 fL (7.4-10.4); Monocytes # (auto) 0.61 K/uL (0.11-0.59); Monocytes % (auto) 7.8 %; Neutrophils # (auto) 6.07 K/uL (1.4-6.5); Neutrophils % (auto) 77.5 %; Platelet Count 253 K/uL (130-400); RDW Coefficient of Variation 14.9 % (11.5-14.5); RDW Standard Deviation 46.7 fL (36.4-46.3); Red Blood Count 4.62 M/uL (4.7-6.1); White Blood Count 7.82 K/uL (4.8-10.8)
[2022-03-03 10:22] LABS: Potassium 3.7 mmol/L (3.5-5.1)
[2022-03-03 10:23] LABS: Albumin Globulin Ratio 1.3 (0.9-2); Albumin Level 3.9 gm/dl (3.4-5.0); BUN Creatinine Ratio 15.8 (10-20); Bilirubin,Total 0.4 mg/dl (0.2-1.0); Calcium 9.7 mg/dl (8.5-10.1); Creatinine Clr Calc Pharmacy 44.7 ml/min; Est GFR (Non-African American) 39.7 ml/min; Globulin 2.9 gm/dl (2.5-4.0); Magnesium 1.9 mg/dl (1.7-2.4); Total Protein 6.8 gm/dl (6.0-8.3)
--- NOTE | 2022-03-03 11:37 | Pharmacy Report ---
Pharmacy Glycemic Sign Off Nt - Date of Service March 03, 2022 - Assessment & Plan ASSESSMENT: * Patient's BSG's are not well controlled, most recently >300 mg/dL (although this was post-prandially) * Discussed w RN (Olga) - patient is not willing to transition from pump to basal/bolus at this time * Discussed w Ariella Bryant PA-C - OK for pharmacy to sign-off at this time. However, resuming consult would be completely reasonable if the patient is to transition from pump to basal/bolus PLAN FOR INPATIENT GLYCEMIC CONTROL: No changes needed to current regimen. * Continue insulin pump, per hospital protocol * Pharmacy is signing off of glycemic consult and will no longer be making adjustments to inpatient regimen. Please feel free to re-consult if needed. Thank you.
--- NOTE | 2022-03-03 12:32 | Hospitalist Progress Note ---
Date of Service March 03, 2022 Assessment & Plan (1) Abscess: Plan: Following biopsy which was benign at tertiary facility s/p POD #1 I&D performed by Dr Werner Continue vancomycin and Zosyn pending culture results. Initial cx Klebsiella BCx pending, no growth to date OR cx pending On Vanco/Zosyn --> discontinued Vanco, continue Zosyn for now but plan to de- escalate to Rocephin but awaiting official OP report BSgs running high -- has own pump/bolus himself and eating PB cups. Refusing to let us d/c pump for now and will need to continue to monito Messaged general surgery -- to see shortly. Put in for wound RN consult, but consideration for wound vac and will message CM to follow/consideration for home health if wound vac utilized (2) Hypertension: Plan: BP stable 137/73, not on BP medications (3) CAD (coronary atherosclerotic disease): Plan: Continue medication as per outpatient, statin and low-dose aspirin. Currently asymptomatic (4) Diabetic nephropathy associated with type 2 diabetes mellitus: Plan: Pharmacy consulted for glycemic control however patient will manage his own insulin today using pump --> SUGARS RUNNING HIGH 03/03 Jardiance and Victoza not available on hospital formulary On gabapentin, can continue HbA1C 8.5 Patient gave bolus, BSGs in 200. Pharmacy signed off. Patient refuses to d/c insulin pump and will need continued monitoring Likely would benefit from wound vac Stressed importance of controlled sugars to promote good wound healing (5) Dyslipidemia: Plan: Continue rosuvastatin Plan: Chemical prophylaxis when ok by surgery. Messaged Tammi from surgery, will order when/if Ok with surgery. Will order SCDs in meantime Monitor BCx/OR cultures Wound RN consulted, ?need for wound vac Continued inpatient stay/monitor cultures Admission and Anticipated Discharge Date Admission Date: March 02, 2022 Subjective patient evaluated this afternoon states after biopsy of mass to that area is when issues started underwent I&D yesterday, reviewed cultures and antibiotic selection and will continue for now until OP report able to be reviewed. Have not seen surgery today. No fever/chills, chest pain, shortness of breath. Incision site tender but not painful/need for medications. Discussed will message surgery to see about wound care/wound vac considerations and monitor cultures. BSGs running high but had 4PB cups yesterday and stated breakfast not great and probably again today. Declined d/c his pump and said could do extra as needed doses for now. Discussed would like ideally controlled BSGs to promote wound healing. Questions/concerns addressed at this time. Review of Systems Review of Systems: All systems reviewed & are unremarkable except as noted in HPI & below Physical Exam Constitutional: well developed and well nourished Eyes: PERRL, conjunctivae normal, anicteric sclerae ENMT: mmm Neck: trachea midline, no deviation Respiratory: normal respiratory effort, lungs clear to auscultation Cardiovascular: RRR, no murmur, no edema Gastrointestinal (Abdomen): Inspection/Auscultation: abdomen normal to inspection and normal bowel sounds; abdomen not distended Percussion/Palpation: abdomen soft; abdomen nontender Skin: Surgical dressing with blood on outside dressing but not soaked through, minimal tenderness to palpation Neurologic: PERRL, EOMI, accommodation nl, no face palsy, no dysarthria Psychiatric: Orientation: alert and oriented x 3 Genitourinary: no worley Results & Data Results & Data ([facility]) Vital Signs (Past 12 Hours) Vital Signs Temp Pulse Resp BP BP Pulse Ox 03/03/22 07:06 36.8 C 73 16 137/73 98 03/03/22 02:15 36.4 C L 73 16 141/73 H 94 Laboratory Results 03/03/22 03/03/22 03/03/22 Range/Units 09:43 09:43 08:15 WBC 7.82 (4.8-10.8) K/uL RBC 4.62 L (4.7-6.1) M/uL Hgb 13.3 L (14.0-18.0) g/dL Hct 39.4 L (42-52) % MCV 85.3 (80-100) fL MCH 28.8 (25-34) pg MCHC 33.8 (32-36) g/dL RDW Std Deviation 46.7 H (36.4-46.3) fL RDW Coeff of Slim 14.9 H (11.5-14.5) % Plt Count 253 (130-400) K/uL MPV 8.5 (7.4-10.4) fL Immature Gran % (Auto) 0.3 % Neut % (Auto) 77.5 % Lymph % (Auto) 8.3 % Barron % (Auto) 7.8 % Eos % (Auto) 5.8 % Baso % (Auto) 0.3 % Neut # (Auto) 6.07 (1.4-6.5) K/uL Lymph # (Auto) 0.65 L (1.2-3.4) K/uL Barron # (Auto) 0.61 H (0.11-0.59) K/uL Eos # (Auto) 0.45 (0-0.5) K/uL Baso # (Auto) 0.02 (0-0.2) K/uL Immature Gran # (Auto) 0.02 (0.00-0.02) K/uL Sodium 138 (136-145) mmol/L Potassium 3.7 (3.5-5.1) mmol/L Chloride 104 (98-107) mmol/L Carbon Dioxide 26 (21-32) mmol/L Anion Gap 8 (3-11) BUN 26 H (6-23) mg/dl Creatinine 1.65 H D (0.6-1.4) mg/dl Est Cr Clr Drug Dosing 44.7 ml/min Est GFR ( Amer) 46.0 ml/min Est GFR (Non-Af Amer) 39.7 ml/min BUN/Creatinine Ratio 15.8 (10-20) Glucose 326 H* (70-99(Fasting)) mg/dl POC Glucose 211 H (70-99) mg/dl Calcium 9.7 (8.5-10.1) mg/dl Magnesium 1.9 (1.7-2.4) mg/dl Total Bilirubin 0.4 (0.2-1.0) mg/dl AST 8 L (13-39) U/L ALT 7 (7-52) U/L Alkaline Phosphatase 69 (34-104) U/L Total Protein 6.8 (6.0-8.3) gm/dl Albumin 3.9 (3.4-5.0) gm/dl Globulin 2.9 (2.5-4.0) gm/dl Albumin/Globulin Ratio 1.3 (0.9-2) PG Care Time/CCT Total # of Minutes Spent Total Time Spent with Patient: Total time spent is greater than 50% in coordination of care (as documented) at patient's floor/unit and/or counseling patient: Coding Level of Care Code 36273 Subseq Hosp Care Lvl 3 Diagnoses Abscess L02.91 Hypertension I10 CAD (coronary atherosclerotic disease) I25.10 Diabetic nephropathy associated with type 2 diabetes mellitus E11.21 Dyslipidemia E78.5
--- NOTE | 2022-03-03 13:54 | Surgery Progress Note ---
Date of Service March 03, 2022 Assessment & Plan (1) Abdominal wall mass of right flank: Plan: POD # 1 s/p I&D of Right flank abscess -afebrile - vss - packing removed and wound irrigated, packing replaced - replaced dressing with optifoam Plan: May benefit from wound care nurse eval for possible wound vac given amount of undermining/tunneling. Continue antibiotics per culture results pain management as needed Discussed with Radha Bryant PA-C if no wound vac, will need packing changes every other day Discussed with dr. mckeon who agrees with above. Admission and Anticipated Discharge Date Admission Date: March 02, 2022 Subjective Feeling better today Minimal pain Tolerating diet No nausea no vomiting Physical Exam Constitutional: WD/WN, vitals as above no acute distress and not ill appearing Respiratory: normal respiratory effort; no respiratory distress and no labored breathing Gastrointestinal (Abdomen): Inspection/Auscultation: abdomen normal to inspec tion; abdomen not distended Right flank incision with packing present, no surrounding erythema, no induration. Packing removed, bloody drainage noted. The wound tunnels medially and laterally even though incision is small. Skin: no rashes, warm and dry Psychiatric: A+Ox3, euthymic affect Results & Data ([facility]) Vital Signs (Past 12 Hours) Vital Signs Temp Pulse Resp BP BP Pulse Ox 03/03/22 07:06 36.8 C 73 16 137/73 98 03/03/22 02:15 36.4 C L 73 16 141/73 H 94 Laboratory Results 03/03/22 03/03/22 03/03/22 Range/Units 09:43 09:43 08:15 WBC 7.82 (4.8-10.8) K/uL RBC 4.62 L (4.7-6.1) M/uL Hgb 13.3 L (14.0-18.0) g/dL Hct 39.4 L (42-52) % MCV 85.3 (80-100) fL MCH 28.8 (25-34) pg MCHC 33.8 (32-36) g/dL RDW Std Deviation 46.7 H (36.4-46.3) fL RDW Coeff of Slim 14.9 H (11.5-14.5) % Plt Count 253 (130-400) K/uL MPV 8.5 (7.4-10.4) fL Immature Gran % (Auto) 0.3 % Neut % (Auto) 77.5 % Lymph % (Auto) 8.3 % [place] % (Auto) 7.8 % Eos % (Auto) 5.8 % Baso % (Auto) 0.3 % Neut # (Auto) 6.07 (1.4-6.5) K/uL Lymph # (Auto) 0.65 L (1.2-3.4) K/uL [place] # (Auto) 0.61 H (0.11-0.59) K/uL Eos # (Auto) 0.45 (0-0.5) K/uL Baso # (Auto) 0.02 (0-0.2) K/uL Immature Gran # (Auto) 0.02 (0.00-0.02) K/uL Sodium 138 (136-145) mmol/L Potassium 3.7 (3.5-5.1) mmol/L Chloride 104 (98-107) mmol/L Carbon Dioxide 26 (21-32) mmol/L Anion Gap 8 (3-11) BUN 26 H (6-23) mg/dl Creatinine 1.65 H D (0.6-1.4) mg/dl Est Cr Clr Drug Dosing 44.7 ml/min Est GFR ( Amer) 46.0 ml/min Est GFR (Non-Af Amer) 39.7 ml/min BUN/Creatinine Ratio 15.8 (10-20) Glucose 326 H* (70-99(Fasting)) mg/dl POC Glucose 211 H (70-99) mg/dl Calcium 9.7 (8.5-10.1) mg/dl Magnesium 1.9 (1.7-2.4) mg/dl Total Bilirubin 0.4 (0.2-1.0) mg/dl AST 8 L (13-39) U/L ALT 7 (7-52) U/L Alkaline Phosphatase 69 (34-104) U/L Total Protein 6.8 (6.0-8.3) gm/dl Albumin 3.9 (3.4-5.0) gm/dl Globulin 2.9 (2.5-4.0) gm/dl Albumin/Globulin Ratio 1.3 (0.9-2) Microbiology 03/02/22 Unknown Gram Stain - Final Back,Lower Aerobic and Anaerobic Culture - Preliminary No growth to date. 02/28/22 14:11 Gram Stain - Final Back,Lower Wound Culture - Final Klebsiella pneumoniae 02/28/22 17:15 Aerobic Blood Culture - Preliminary Blood No growth in Aerobic bottle after 48 hours. Anaerobic Blood Culture - Preliminary No growth in Anaerobic bottle after 48 hours. 02/28/22 16:39 Aerobic Blood Culture - Preliminary Blood No growth in Aerobic bottle after 48 hours. Anaerobic Blood Culture - Preliminary No growth in Anaerobic bottle after 48 hours.
[2022-03-03] MEDS ORDERED: ACETAMINOPHEN 325 MG TAB PO PRN (13:56)
[2022-03-03] MEDS ORDERED: SODIUM CHLORIDE 0.9% 500 ML IV SCH (14:45)
[2022-03-03] MEDS ORDERED: INSULIN GLARGINE SOLOSTAR 100 UNITS/ML 3 ML PEN SC ONE (14:45)
[2022-03-04] MEDS: PIPERACILLIN/TAZOBACTAM 3.375 GM in DEXTROSE 5% 100 ML IV SCH ×3 (06:27→21:22)
[2022-03-04] MEDS: ASPIRIN 81 MG CHEW PO SCH (07:31)
[2022-03-04] MEDS: ROSUVASTATIN CALCIUM 20 MG TAB PO SCH (07:32)
[2022-03-04] MEDS: GABAPENTIN 600 MG TAB PO SCH ×2 (07:32→20:22)
[2022-03-04] MEDS: DULoxetine HCL 30 MG CAP PO SCH ×2 (07:32→20:22)
[2022-03-04] MEDS: ARTIFICIAL TEARS OP SCH (07:33)
[2022-03-04] MEDS: NovoLOG INSULIN PUMP SCH ×4 (07:37→20:24)
[2022-03-04 08:00] LABS: Hematocrit (blood only) 41.8 % (42-52); Hemoglobin 13.6 g/dL (14.0-18.0); Mean Corpuscular Hemoglobin 27.8 pg (25-34); Mean Corpuscular Hgb Conc 32.5 g/dL (32-36); Mean Corpuscular Volume 85.3 fL (80-100); Mean Platelet Volume 8.8 fL (7.4-10.4); Platelet Count 258 K/uL (130-400); RDW Coefficient of Variation 15.1 % (11.5-14.5); RDW Standard Deviation 46.9 fL (36.4-46.3); White Blood Count 8.69 K/uL (4.8-10.8)
[2022-03-04 08:20] LABS: Albumin Globulin Ratio 1.3 (0.9-2); Albumin Level 3.9 gm/dl (3.4-5.0); BUN Creatinine Ratio 17.7 (10-20); Bilirubin,Total 0.5 mg/dl (0.2-1.0); Calcium 9.4 mg/dl (8.5-10.1); Creatinine Clr Calc Pharmacy 50.1 ml/min; Est GFR (African American) 52.9 ml/min; Est GFR (Non-African American) 45.7 ml/min; Globulin 2.9 gm/dl (2.5-4.0); Magnesium 1.8 mg/dl (1.7-2.4); Potassium 3.2 mmol/L (3.5-5.1); Total Protein 6.8 gm/dl (6.0-8.3)
[2022-03-04] MEDS ORDERED: POTASSIUM CHLORIDE CRTAB 20 MEQ TABCR PO STA (08:49)
--- NOTE | 2022-03-04 08:49 | Hospitalist Progress Note ---
Date of Service March 04, 2022 Assessment & Plan (1) Abscess: Plan: Following biopsy which was benign at tertiary facility Postprocedural right flank abscess after biopsy, a complication of care s/p POD #2 I&D performed by Dr Werner Initially on Vanco/Zosyn --> discontinued Vanco given Klebsiella on initialcx. Remains on Zosyn for now but could consider de-escalation to Rocephin in AM WBC wnl, remains afebrile BCX ngtd -- monitor Monitor OR cx Wound RN consulted Possible wound vac candidate but bleeding currently, need to ensure hemostasis Ordered repeat limited US to eval for abscess/fluid collection but the incision looks good itself, slightly more indurated/fluctuant at top General surgery to see this afternoon -- appreciate continued assistance/recommendations Continued inpatient stay -- CM aware of possible wound vac at d/c / wound f/u (2) CAD (coronary atherosclerotic disease): Plan: Continue medication as per outpatient, statin and low-dose aspirin. Currently asymptomatic (3) Diabetic nephropathy associated with type 2 diabetes mellitus: Plan: Pharmacy consulted for glycemic control however patient will manage his own insulin today using pump --> SUGARS RUNNING HIGH 03/03 Jardiance and Victoza not available on hospital formulary On gabapentin, can continue HbA1C 8.5 Elevations in 300s 03/02-03/03 eating PB cups --> improved BSGs improved to 187/178 this morning on flow sheet (running higher days past)-- patient continues to bolus w/ own pump Likely would benefit from wound vac Stressed importance of controlled sugars to promote good wound healing (4) Dyslipidemia: Plan: Continue rosuvastatin Plan: Chemical prophylaxis when ok by surgery. Messaged Tammi from surgery, will order when/if Ok with surgery -- continued bleeding and will hold off on chemoproph for now SCDs irderde Continued inpatient stay Admission and Anticipated Discharge Date Admission Date: March 02, 2022 Subjective patient evaluated this morning feeling alright decrease discomfort, minimal tenderness seen by wound this morning, continues to have bloody drainage, may be able to use wound vac but need to ensure no hematoma/bleeding vessel. Discussed repeating ultrasound but also messaged general surgery - has not been seen yet by them this morning. No fever/chills, chest pain, shortness of breath. Eating/drinking no issues, no abdominal pain. Not moved bowels in 2-3 days but no pain and patient states this is normal for him. Questions/concerns addressed at this time. Review of Systems Review of Systems: All systems reviewed & are unremarkable except as noted in HPI & below Physical Exam Physical Exam: General: WD/WN male sitting up in bed, NAD HEENT; pupils anicteric, head atraumatic/normocephalic, mm improved, trachea midline without deviation Resp: CTAB, no w/c/r, on room air CV: RRR, no m/r/g, no edema GI: +Bs, soft, nt/nd : no worley MSK/Neuro: CN intact grossly, no focal deficit, moves all extremities Skin: posterior R lower back with dressing intact with optifoam covering, incision with packing with blood noted, no purulant drainage, superior aspect with increased induration/fluctuance compared to day prior, minimally tender to palpation Results & Data Results & Data ([facility]) Vital Signs (Past 12 Hours) Vital Signs Temp Pulse Pulse Resp BP BP Pulse Ox 03/04/22 07:13 36.6 C 66 16 154/85 H 96 03/03/22 23:00 36.9 C 76 18 154/81 H 98 Laboratory Results 03/04/22 03/04/22 03/04/22 Range/Units 08:17 07:30 07:30 WBC (4.8-10.8) K/uL RBC (4.7-6.1) M/uL Hgb (14.0-18.0) g/dL Hct (42-52) % MCV (80-100) fL MCH (25-34) pg MCHC (32-36) g/dL RDW Std Deviation (36.4-46.3) fL RDW Coeff of Slim (11.5-14.5) % Plt Count (130-400) K/uL MPV (7.4-10.4) fL Immature Gran % (Auto) % Neut % (Auto) % Lymph % (Auto) % [place]ascock % (Auto) % Eos % (Auto) % Baso % (Auto) % Neut # (Auto) (1.4-6.5) K/uL Lymph # (Auto) (1.2-3.4) K/uL [place]ock # (Auto) (0.11-0.59) K/uL Eos # (Auto) (0-0.5) K/uL Baso # (Auto) (0-0.2) K/uL Immature Gran # (Auto) (0.00-0.02) K/uL Sodium 140 (136-145) mmol/L Potassium 3.2 L (3.5-5.1) mmol/L Chloride 106 (98-107) mmol/L Carbon Dioxide 27 (21-32) mmol/L Anion Gap 7 (3-11) BUN 26 H (6-23) mg/dl Creatinine 1.47 H (0.6-1.4) mg/dl Est Cr Clr Drug Dosing 50.1 ml/min Est GFR ( Amer) 52.9 ml/min Est GFR (Non-Af Amer) 45.7 ml/min BUN/Creatinine Ratio 17.7 (10-20) Glucose 122 H (70-99(Fasting)) mg/dl POC Glucose 116 H (70-99) mg/dl Calcium 9.4 (8.5-10.1) mg/dl Magnesium 1.8 (1.7-2.4) mg/dl Total Bilirubin 0.5 (0.2-1.0) mg/dl AST 10 L (13-39) U/L ALT 7 (7-52) U/L Alkaline Phosphatase 64 (34-104) U/L Total Protein 6.8 (6.0-8.3) gm/dl Albumin 3.9 (3.4-5.0) gm/dl Globulin 2.9 (2.5-4.0) gm/dl Albumin/Globulin Ratio 1.3 (0.9-2) Hepatitis C Ab (EIA) Pending Hep C Ab Signal/Cutoff Pending 03/04/22 03/03/22 03/03/22 Range/Units 07:30 09:43 09:43 WBC 8.69 7.82 (4.8-10.8) K/uL RBC 4.90 4.62 L (4.7-6.1) M/uL Hgb 13.6 L 13.3 L (14.0-18.0) g/dL Hct 41.8 L 39.4 L (42-52) % MCV 85.3 85.3 (80-100) fL MCH 27.8 28.8 (25-34) pg MCHC 32.5 33.8 (32-36) g/dL RDW Std Deviation 46.9 H 46.7 H (36.4-46.3) fL RDW Coeff of Slim 15.1 H 14.9 H (11.5-14.5) % Plt Count 258 253 (130-400) K/uL MPV 8.8 8.5 (7.4-10.4) fL Immature Gran % (Auto) 0.3 % Neut % (Auto) 77.5 % Lymph % (Auto) 8.3 % [place] % (Auto) 7.8 % Eos % (Auto) 5.8 % Baso % (Auto) 0.3 % Neut # (Auto) 6.07 (1.4-6.5) K/uL Lymph # (Auto) 0.65 L (1.2-3.4) K/uL [place]ock # (Auto) 0.61 H (0.11-0.59) K/uL Eos # (Auto) 0.45 (0-0.5) K/uL Baso # (Auto) 0.02 (0-0.2) K/uL Immature Gran # (Auto) 0.02 (0.00-0.02) K/uL Sodium 138 (136-145) mmol/L Potassium 3.7 (3.5-5.1) mmol/L Chloride 104 (98-107) mmol/L Carbon Dioxide 26 (21-32) mmol/L Anion Gap 8 (3-11) BUN 26 H (6-23) mg/dl Creatinine 1.65 H D (0.6-1.4) mg/dl Est Cr Clr Drug Dosing 44.7 ml/min Est GFR ( Amer) 46.0 ml/min Est GFR (Non-Af Amer) 39.7 ml/min BUN/Creatinine Ratio 15.8 (10-20) Glucose 326 H* (70-99(Fasting)) mg/dl POC Glucose (70-99) mg/dl Calcium 9.7 (8.5-10.1) mg/dl Magnesium 1.9 (1.7-2.4) mg/dl Total Bilirubin 0.4 (0.2-1.0) mg/dl AST 8 L (13-39) U/L ALT 7 (7-52) U/L Alkaline Phosphatase 69 (34-104) U/L Total Protein 6.8 (6.0-8.3) gm/dl Albumin 3.9 (3.4-5.0) gm/dl Globulin 2.9 (2.5-4.0) gm/dl Albumin/Globulin Ratio 1.3 (0.9-2) Hepatitis C Ab (EIA) Hep C Ab Signal/Cutoff PG Care Time/CCT Total # of Minutes Spent Total Time Spent with Patient: Total time spent is greater than 50% in coordination of care (as documented) at patient's floor/unit and/or counseling patient: Coding Level of Care Code 42565 Subseq Hosp Care Lvl 3 Diagnoses Abscess L02.91 CAD (coronary atherosclerotic disease) I25.10 Diabetic nephropathy associated with type 2 diabetes mellitus E11.21 Dyslipidemia E78.5
[2022-03-04] MEDS: [UNRECOGNIZED DRUG - REMARK] PO SCH ×2 (09:37→20:23)
[2022-03-04] MEDS ORDERED: cefTRIAXone SODIUM 2,000 MG in DEXTROSE 5% 50 ML IV SCH (12:00)
--- NOTE | 2022-03-04 12:21 | Ultrasound Report ---
US abdomen limited right flank CLINICAL HISTORY: R back mass, s/p I D, eval fluid collection vs hem. COMPARISON: 02/29/2020 TECHNIQUE: Multiple grayscale and color images of the right flank of the abdomen. FINDINGS: Compared to previous examination, only a small residual fluid collection is present at the site of previously identified abscess/hematoma involving the right flank. It now measures 2.7 x 2.0 x 0.6 cm compared to 12 x 12 x 6 cm. No increased vascularity is present. IMPRESSION: 1. Very small residual fluid collection at the site of previous abscess/hematoma involving the right flank. ACT 112: Negative or not required by law. Electronically signed by: Luis Alberto Feng M.D. 03/04/2022 12:19 PM
[2022-03-04] MEDS ORDERED: SODIUM CHLORIDE 0.9% 500 ML IV SCH (14:45)
[2022-03-04] MEDS ORDERED: OPTIRAY 320 100ml IV ONE (15:49)
--- NOTE | 2022-03-04 16:00 | Surgery Progress Note ---
Date of Service March 04, 2022 Assessment & Plan (1) Abdominal wall mass of right flank: Plan: POD # 2 s/p I&D of Right flank abscess -afebrile - vss - packing removed and wound irrigated yesterday, packing replaced - wound care evaluated patient, good candidate for wound vac but unable to place today due to bleeding. -US showing small residual fluid collection at site of I&D Plan: Will keep packing in place today and possibly for tomorrow to prevent continued bleeding and hematoma formation. Continue antibiotics per wound culture Continue diet Continue pain management as needed Will need wound care follow-up if unable to place wound VAC during this a dmission and could have wound VAC placed in the wound clinic. Dr. Mccormick was present during my examination and agrees with above Admission and Anticipated Discharge Date Admission Date: March 02, 2022 Subjective Patient feeling well Minimal pain at incision site tolerating diet Physical Exam Constitutional: WD/WN, vitals as above no acute distress and not ill appearing Neck: normal visual inspection and trachea midline Gastrointestinal (Abdomen): Right flank/back with dressing in place. Dressing removed and incision area was inspected. There is some mild induration medially extending to the back however there is no erythema to suggest recurrent abscess or cellulitis. Skin: no rashes, warm and dry Psychiatric: A+Ox3, euthymic affect Results & Data ([facility]) Vital Signs (Past 12 Hours) Vital Signs Temp Pulse Pulse Resp BP Pulse Ox 03/04/22 14:08 36.6 C 67 16 157/82 H 96 03/04/22 07:13 36.6 C 66 16 154/85 H 96 Laboratory Results 03/04/22 03/04/22 03/04/22 Range/Units 12:09 08:17 07:30 WBC (4.8-10.8) K/uL RBC (4.7-6.1) M/uL Hgb (14.0-18.0) g/dL Hct (42-52) % MCV (80-100) fL MCH (25-34) pg MCHC (32-36) g/dL RDW Std Deviation (36.4-46.3) fL RDW Coeff of Slim (11.5-14.5) % Plt Count (130-400) K/uL MPV (7.4-10.4) fL Sodium (136-145) mmol/L Potassium (3.5-5.1) mmol/L Chloride (98-107) mmol/L Carbon Dioxide (21-32) mmol/L Anion Gap (3-11) BUN (6-23) mg/dl Creatinine (0.6-1.4) mg/dl Est Cr Clr Drug Dosing ml/min Est GFR ( Amer) ml/min Est GFR (Non-Af Amer) ml/min BUN/Creatinine Ratio (10-20) Glucose (70-99(Fasting)) mg/dl POC Glucose 212 H 116 H (70-99) mg/dl Calcium (8.5-10.1) mg/dl Magnesium (1.7-2.4) mg/dl Total Bilirubin (0.2-1.0) mg/dl AST (13-39) U/L ALT (7-52) U/L Alkaline Phosphatase (34-104) U/L Total Protein (6.0-8.3) gm/dl Albumin (3.4-5.0) gm/dl Globulin (2.5-4.0) gm/dl Albumin/Globulin Ratio (0.9-2) Hepatitis C Ab (EIA) Pending Hep C Ab Signal/Cutoff Pending 03/04/22 03/04/22 Range/Units 07:30 07:30 WBC 8.69 (4.8-10.8) K/uL RBC 4.90 (4.7-6.1) M/uL Hgb 13.6 L (14.0-18.0) g/dL Hct 41.8 L (42-52) % MCV 85.3 (80-100) fL MCH 27.8 (25-34) pg MCHC 32.5 (32-36) g/dL RDW Std Deviation 46.9 H (36.4-46.3) fL RDW Coeff of Slim 15.1 H (11.5-14.5) % Plt Count 258 (130-400) K/uL MPV 8.8 (7.4-10.4) fL Sodium 140 (136-145) mmol/L Potassium 3.2 L (3.5-5.1) mmol/L Chloride 106 (98-107) mmol/L Carbon Dioxide 27 (21-32) mmol/L Anion Gap 7 (3-11) BUN 26 H (6-23) mg/dl Creatinine 1.47 H (0.6-1.4) mg/dl Est Cr Clr Drug Dosing 50.1 ml/min Est GFR ( Amer) 52.9 ml/min Est GFR (Non-Af Amer) 45.7 ml/min BUN/Creatinine Ratio 17.7 (10-20) Glucose 122 H (70-99(Fasting)) mg/dl POC Glucose (70-99) mg/dl Calcium 9.4 (8.5-10.1) mg/dl Magnesium 1.8 (1.7-2.4) mg/dl Total Bilirubin 0.5 (0.2-1.0) mg/dl AST 10 L (13-39) U/L ALT 7 (7-52) U/L Alkaline Phosphatase 64 (34-104) U/L Total Protein 6.8 (6.0-8.3) gm/dl Albumin 3.9 (3.4-5.0) gm/dl Globulin 2.9 (2.5-4.0) gm/dl Albumin/Globulin Ratio 1.3 (0.9-2) Hepatitis C Ab (EIA) Hep C Ab Signal/Cutoff Diagnostic Findings US abdomen limited right flank CLINICAL HISTORY: R back mass, s/p I D, eval fluid collection vs hem. COMPARISON: 02/29/2020 TECHNIQUE: Multiple grayscale and color images of the right flank of the abdomen. FINDINGS: Compared to previous examination, only a small residual fluid collection is present at the site of previously identified abscess/hematoma involving the right flank. It now measures 2.7 x 2.0 x 0.6 cm compared to 12 x 12 x 6 cm. No increased vascularity is present. IMPRESSION: 1. Very small residual fluid collection at the site of previous abscess/hematoma involving the right flank.
--- NOTE | 2022-03-04 16:44 | CT Scan Report ---
CT SCAN OF THE CHEST, ABDOMEN, AND PELVIS WITH IV CONTRAST CLINICAL HISTORY: Right-sided back mass. COMPARISON STUDY: Chest CT dated 10/11/2010. Abdominal CT dated 10/27/2017. TECHNIQUE: Following the IV administration of 94 of [employer] 320, CT scan of the chest, abdomen, and p yvonne was performed from the thoracic inlet to the proximal femora. Images are reviewed in the axial, sagittal, and coronal planes. IV contrast was administered without complication. Oral contrast was u tilized. A dose lowering technique was utilized adhering to the principles of ALARA. CT DOSE: 1492.10 mGycm FINDINGS: CHEST: Thyroid: Imaged portions of the thyroid gland are normal in size and attenuation. Thoracic aorta: There is mild atherosclerotic calcification of the thoracic aorta, which is normal in caliber and demonstrates standard 3-vessel arch anatomy. No dissection is seen. Pulmonary vasculature: The pulmonary trunk is normal in caliber. There are no filling defects identif ied in the central pulmonary vessels to indicate pulmonary embolus. Note that this examination was no t protocoled for evaluation of the pulmonary arteries. Heart: The heart is normal in size and without pericardial effusion. The coronary arteries are densel y calcified. Lungs and pleural spaces: There is mild bibasilar scarring/atelectasis. No airspace consolidation or pleural effusion is identified. The trachea and central airways are clear. Mediastinum: There is no mediastinal lymphadenopathy. Addis: Clear. Axillae: There is no axillary lymphadenopathy. Bony thorax: The skeletal structures are osteopenic. No lytic or blastic lesions are identified. Dege nerative change and mild hyperkyphosis is noted in the thoracic spine. ABDOMEN AND PELVIS: Liver: The contrast-enhanced liver is normal in size, contour, and attenuation. There is no intrahepa tic biliary ductal dilatation. The hepatic veins and portal veins are patent. Gallbladder: Surgically absent noting clips in the gallbladder fossa. Spleen: Normal in size and attenuation. Pancreas: Atrophic and grossly unremarkable. Adrenal glands: Unremarkable. Kidneys: The contrast enhanced kidneys demonstrate cortical atrophy and are without hydronephrosis. T he kidneys enhance symmetrically. Subcentimeter cortical hypodensities likely represent cysts but are too small for definitive characterization. Abdominal vasculature: The abdominal aorta is normal in course and caliber noting advanced atheroscle rotic calcification. Stomach and bowel: There is a small hiatal hernia. There is moderate colonic fecal retention. No manuel l obstruction is identified. There is moderate to advanced colonic diverticulosis without CT evidence of acute diverticulitis. Duodenal diverticula are noted. The appendix is well-visualized and normal . Peritoneum: There is no intraperitoneal free air or abdominal ascites. Lymphadenopathy: None. Pelvic viscera: The prostate gland is enlarged and heterogeneous noting median lobe hypertrophy. The bladder wall appears thickened and trabeculated indicating chronic outlet obstruction. There is evide nce of previous left inguinal herniorrhaphy. Skeletal structures: The skeletal structures are osteopenic. There is mild to moderate lumbosacral sp ondylosis. No lytic or blastic lesions are seen. Soft tissues: There is a wound with subcutaneous gas identified in the right lower back overlying the right posterior 11th and 12th ribs, possibly related to recent surgery. There is a hyperdense collec tion versus mass lesion within the soft tissues superficial to the abdominal wall. This closely appro ximates the right paraspinous musculature as seen on image #[address] This measures approxima tely 7.5 x 3 x 9.5 cm. This extends into the retroperitoneum as seen on axial image #169. A similar h yperdense mass/collection with an internal low-attenuation fluid collections is seen along the front end architect ior aspect of the liver at levels of L1 and L2. This measures approximately 9 x 3 x 11 cm in aggregat e dimension. The largest loculation of low-attenuation fluid is seen on image #138 measures approxima tely 4.5 x 2 x 7 cm. Smaller loculations are seen more superiorly on image #81 measuring up to 2.2 cm and on image #106 measuring up to 1.6 cm. This closely approximates but does not appear to invade th e posterior aspect of liver. There are punctate calcifications suggested in the region of this collec tion posterior to the liver on images #146 and #156. IMPRESSION: 1. There is a large hyperdense fluid collection/mass lesion in the subcutaneous soft tissues of the r ight lower back as detailed above. This could represent a mass lesion or hematoma and clinical correl ation will be essential. 2. This extends anteriorly into the retroperitoneum posterior to the liver as detailed above. There a re loculated low-attenuation retroperitoneal fluid collections within the more hyperdense mass/collec tion. This is indeterminant and could represent necrosis, seroma, or possibly abscess. The sterility cannot be evaluated by imaging and clinical correlation will be essential. 3. This closely approximates the posterior aspect of the liver without evidence of invasion. 4. There are tiny calcifications in the region of the fluid collection posterior to the liver. These are indeterminant, and tiny dropped gallstones could potentially have this appearance. 5. The lungs are clear. There is no evidence of extension into the pleura. 6. Advanced coronary artery calcification. 7. Moderate constipation. 8. Colonic diverticulosis without CT evidence of acute diverticulitis. 9. Additional findings as above. Findings were discussed with Kelly Valero in surgery at the time of interpretation. ACT 112: Negative or not required by law. Electronically signed by: Darian Dasilva M.D. 03/04/2022 4:42 PM
[2022-03-05] MEDS: PIPERACILLIN/TAZOBACTAM 3.375 GM in DEXTROSE 5% 100 ML IV SCH ×3 (05:12→21:00)
[2022-03-05 06:42] LABS: Hematocrit (blood only) 40.2 % (42-52); Hemoglobin 13.4 g/dL (14.0-18.0); Mean Corpuscular Hemoglobin 28.6 pg (25-34); Mean Corpuscular Hgb Conc 33.3 g/dL (32-36); Mean Corpuscular Volume 85.9 fL (80-100); Mean Platelet Volume 8.7 fL (7.4-10.4); Platelet Count 245 K/uL (130-400); RDW Coefficient of Variation 15.2 % (11.5-14.5); RDW Standard Deviation 47.5 fL (36.4-46.3); Red Blood Count 4.68 M/uL (4.7-6.1); White Blood Count 7.02 K/uL (4.8-10.8)
[2022-03-05 07:15] LABS: ALC (manual) 0.62 K/uL (1.2-3.4); Basophils # (manual) 0.06 K/uL (0-0.2); Basophils % (manual) 0.9 %; Eosinophils # (manual) 0.49 K/uL (0-0.5); Lymphocytes # (manual) 0.62 K/uL (1.2-3.4); Lymphocytes % (manual) 8.8 %; Monocytes # (manual) 0.25 K/uL (0.11-0.59); Monocytes % (manual) 3.5 %; Neutrophils % (manual) 79.8 %
[2022-03-05 07:33] LABS: Albumin Globulin Ratio 1.3 (0.9-2); Albumin Level 3.8 gm/dl (3.4-5.0); BUN Creatinine Ratio 16.3 (10-20); Bilirubin,Total 0.4 mg/dl (0.2-1.0); Calcium 9.6 mg/dl (8.5-10.1); Creatinine Clr Calc Pharmacy 46.1 ml/min; Est GFR (African American) 47.8 ml/min; Est GFR (Non-African American) 41.2 ml/min; Globulin 2.9 gm/dl (2.5-4.0); Magnesium 1.9 mg/dl (1.7-2.4); Potassium 3.5 mmol/L (3.5-5.1); Total Protein 6.7 gm/dl (6.0-8.3)
--- NOTE | 2022-03-05 08:17 | Hospitalist Progress Note ---
Date of Service March 05, 2022 Assessment & Plan (1) Abscess: Plan: Following biopsy which was "benign" at tertiary facility -- general surgery PA pulled up report -- "biopsy showed granulation tissue, osteoclastic giant cells and necrosis favor reactive and benign findings" however prior imaging with noted fluid collection/mass extending to R 12th rib level Postprocedural right flank abscess after biopsy, a complication of care but likely from dropped gallstones s/p I&D performed by Dr Werner 03/02. Initially on Vanco/Zosyn --> discontinued Vanco given Klebsiella on initialcx. Remains on Zosyn for now given above imaging CTAP/Chest with 1. There is a large hyperdense fluid collection/mass lesion in the subcutaneous soft tissues of the right lower back as detailed above. This could represent a mass lesion or hematoma and clinical correlation will be essential. 2. This extends anteriorly into the retroperitoneum posterior to the liver as detailed above. There are loculated low-attenuation retroperitoneal fluid collections within the more hyperdense mass/collection. This is indeterminant and could represent necrosis, seroma, or possibly abscess. The sterility cannot be evaluated by imaging and clinical correlation will be essential. 3. This closely approximates the posterior aspect of the liver without evidence of invasion. 4. There are tiny calcifications in the region of the fluid collection posterior to the liver. These are indeterminant, and tiny dropped gallstones could potentially have this appearance. Prior cholecystectomy 2017 with requirement for transhepatic cholangiogram at [facility] Given imaging, concerning for source/long standing infection with dropped gallstones and discussed with Dr Thomson from Radiology, unable to drain given location and rec transfer (also recs for trasnfer from surgery given complex medical nature/history) Patient will require either perc drain through diaphragm for drainage vs general surgery more likely for washout/fluid sample/abx tailored to such Will continue Zosyn given GB likely source and not-descalate for now Awaiting call back from [facility] to work on transfer WBC wnl, BCx remain NGTD Wound RN on consult -- holding off wound vac for now ID consult pending, likely not to happen today Continued inpatient stay (2) CAD (coronary atherosclerotic disease): Plan: Continue medication as per outpatient, statin and low-dose aspirin. --> placed aspirin on hold given bleeding Currently asymptomatic (3) Diabetic nephropathy associated with type 2 diabetes mellitus: Plan: Pharmacy consulted for glycemic control however patient will manage his own insulin today using pump --> SUGARS RUNNING HIGH 03/03 Jardiance and Victoza not available on hospital formulary On gabapentin, can continue HbA1C 8.5 Elevations in 300s 03/02-03/03 eating PB cups --> improved BSGs improved to 187/178 this morning on flow sheet (running higher days past)-- patient continues to bolus w/ own pump Likely would benefit from wound vac Stressed importance of controlled sugars to promote good wound healing 03/05 BSGs upper 170/180s, low 200s, started back on home jardiance (4) Dyslipidemia: Plan: Continue rosuvastatin Plan: Chemical prophylaxis when ok by surgery. Messaged Tammi from surgery, will order when/if Ok with surgery -- continued bleeding and will hold off on chemoproph for now SCDs orderde Continued inpatient stay for now, but attempting to arrange transport to [facility] for surgery given complex nature Admission and Anticipated Discharge Date Admission Date: March 02, 2022 Subjective patient evaluated this morning prior to lunch not a fan of the food discussed surgery recommendations and will await radiology to review imaging /consider drainage of fluid for analysis. would like to avoid transfer but understands if needed will contact tertiary for consideration ID consult pending but possible not able to be performed today due to backup. He states pain controlled, only having mild "irritation". Reviewed imaging with patient/theory regarding the gallstones, he notes that since the time he had the surgery it's been hard to describe but he hadn't ever gotten back to "his usual self". He wonders if that's been the cause of generalized feeling ill over the past couple years as he notes he used to love to golf but it took an entire year to do 9 holes with golf cart and hardly having to walk as much as usual. Discussed possible but hard to determine but need to determine sterility of fluid. Review of Systems Review of Systems: All systems reviewed & are unremarkable except as noted in HPI & below Physical Exam Physical Exam: General: WD/WN male sitting up in bed, NAD HEENT; pupils anicteric, head atraumatic/normocephalic, mm improved, trachea midline without deviation Resp: CTAB, no w/c/r, on room air CV: RRR, no m/r/g, no edema GI: +Bs, soft, nt/nd : no worley MSK/Neuro: CN intact grossly, no focal deficit, moves all extremities Skin: posterior R lower back with dressing intact with optifoam covering, incision with packing with blood noted, no purulent drainage, less indurated today, nontender Results & Data Results & Data ([facility]) Vital Signs (Past 12 Hours) Vital Signs Temp Pulse Resp BP BP Pulse Ox 03/05/22 07:46 36.6 C 70 16 158/81 H 96 03/04/22 23:02 36.8 C 75 18 154/66 H 99 Laboratory Results 03/05/22 03/05/22 03/05/22 Range/Units 06:24 06:24 06:24 WBC 7.02 (4.8-10.8) K/uL RBC 4.68 L (4.7-6.1) M/uL Hgb 13.4 L (14.0-18.0) g/dL Hct 40.2 L (42-52) % MCV 85.9 (80-100) fL MCH 28.6 (25-34) pg MCHC 33.3 (32-36) g/dL RDW Std Deviation 47.5 H (36.4-46.3) fL RDW Coeff of Slim 15.2 H (11.5-14.5) % Plt Count 245 (130-400) K/uL MPV 8.7 (7.4-10.4) fL Neutrophils % (Manual) 79.8 % Lymphocytes % (Manual) 8.8 % Monocytes % (Manual) 3.5 % Eosinophils % (Manual) 7.0 % Basophils % (Manual) 0.9 % Neutrophils # (Manual) 5.60 (1.4-6.5) K/uL Total Absolute Neuts 5.60 (1.4-6.5) K/uL Lymphocytes # (Manual) 0.62 L (1.2-3.4) K/uL Total Abs Lymphocytes 0.62 L (1.2-3.4) K/uL Monocytes # (Manual) 0.25 (0.11-0.59) K/uL Eosinophils # (Manual) 0.49 (0-0.5) K/uL Basophils # (Manual) 0.06 (0-0.2) K/uL Sodium 141 (136-145) mmol/L Potassium 3.5 (3.5-5.1) mmol/L Chloride 107 (98-107) mmol/L Carbon Dioxide 29 (21-32) mmol/L Anion Gap 5 (3-11) BUN 26 H (6-23) mg/dl Creatinine 1.60 H (0.6-1.4) mg/dl Est Cr Clr Drug Dosing 46.1 ml/min Est GFR ( Amer) 47.8 ml/min Est GFR (Non-Af Amer) 41.2 ml/min BUN/Creatinine Ratio 16.3 (10-20) Glucose 176 H (70-99(Fasting)) mg/dl POC Glucose (70-99) mg/dl Calcium 9.6 (8.5-10.1) mg/dl Magnesium 1.9 (1.7-2.4) mg/dl Total Bilirubin 0.4 (0.2-1.0) mg/dl AST 10 L (13-39) U/L ALT 8 (7-52) U/L Alkaline Phosphatase 66 (34-104) U/L Total Protein 6.7 (6.0-8.3) gm/dl Albumin 3.8 (3.4-5.0) gm/dl Globulin 2.9 (2.5-4.0) gm/dl Albumin/Globulin Ratio 1.3 (0.9-2) Procalcitonin Pending Hepatitis C Ab (EIA) (NON-REACTIVE) Hep C Ab Signal/Cutoff (<1.00) 03/04/22 03/04/22 03/04/22 Range/Units 20:49 12:09 08:17 WBC (4.8-10.8) K/uL RBC (4.7-6.1) M/uL Hgb (14.0-18.0) g/dL Hct (42-52) % MCV (80-100) fL MCH (25-34) pg MCHC (32-36) g/dL RDW Std Deviation (36.4-46.3) fL RDW Coeff of Slim (11.5-14.5) % Plt Count (130-400) K/uL MPV (7.4-10.4) fL Neutrophils % (Manual) % Lymphocytes % (Manual) % Monocytes % (Manual) % Eosinophils % (Manual) % Basophils % (Manual) % Neutrophils # (Manual) (1.4-6.5) K/uL Total Absolute Neuts (1.4-6.5) K/uL Lymphocytes # (Manual) (1.2-3.4) K/uL Total Abs Lymphocytes (1.2-3.4) K/uL Monocytes # (Manual) (0.11-0.59) K/uL Eosinophils # (Manual) (0-0.5) K/uL Basophils # (Manual) (0-0.2) K/uL Sodium (136-145) mmol/L Potassium (3.5-5.1) mmol/L Chloride (98-107) mmol/L Carbon Dioxide (21-32) mmol/L Anion Gap (3-11) BUN (6-23) mg/dl Creatinine (0.6-1.4) mg/dl Est Cr Clr Drug Dosing ml/min Est GFR ( Amer) ml/min Est GFR (Non-Af Amer) ml/min BUN/Creatinine Ratio (10-20) Glucose (70-99(Fasting)) mg/dl POC Glucose 255 H 212 H 116 H (70-99) mg/dl Calcium (8.5-10.1) mg/dl Magnesium (1.7-2.4) mg/dl Total Bilirubin (0.2-1.0) mg/dl AST (13-39) U/L ALT (7-52) U/L Alkaline Phosphatase (34-104) U/L Total Protein (6.0-8.3) gm/dl Albumin (3.4-5.0) gm/dl Globulin (2.5-4.0) gm/dl Albumin/Globulin Ratio (0.9-2) Procalcitonin Hepatitis C Ab (EIA) (NON-REACTIVE) Hep C Ab Signal/Cutoff (<1.00) 03/04/22 03/04/22 Range/Units 07:30 07:30 WBC (4.8-10.8) K/uL RBC (4.7-6.1) M/uL Hgb (14.0-18.0) g/dL Hct (42-52) % MCV (80-100) fL MCH (25-34) pg MCHC (32-36) g/dL RDW Std Deviation (36.4-46.3) fL RDW Coeff of Slim (11.5-14.5) % Plt Count (130-400) K/uL MPV (7.4-10.4) fL Neutrophils % (Manual) % Lymphocytes % (Manual) % Monocytes % (Manual) % Eosinophils % (Manual) % Basophils % (Manual) % Neutrophils # (Manual) (1.4-6.5) K/uL Total Absolute Neuts (1.4-6.5) K/uL Lymphocytes # (Manual) (1.2-3.4) K/uL Total Abs Lymphocytes (1.2-3.4) K/uL Monocytes # (Manual) (0.11-0.59) K/uL Eosinophils # (Manual) (0-0.5) K/uL Basophils # (Manual) (0-0.2) K/uL Sodium 140 (136-145) mmol/L Potassium 3.2 L (3.5-5.1) mmol/L Chloride 106 (98-107) mmol/L Carbon Dioxide 27 (21-32) mmol/L Anion Gap 7 (3-11) BUN 26 H (6-23) mg/dl Creatinine 1.47 H (0.6-1.4) mg/dl Est Cr Clr Drug Dosing 50.1 ml/min Est GFR ( Amer) 52.9 ml/min Est GFR (Non-Af Amer) 45.7 ml/min BUN/Creatinine Ratio 17.7 (10-20) Glucose 122 H (70-99(Fasting)) mg/dl POC Glucose (70-99) mg/dl Calcium 9.4 (8.5-10.1) mg/dl Magnesium 1.8 (1.7-2.4) mg/dl Total Bilirubin 0.5 (0.2-1.0) mg/dl AST 10 L (13-39) U/L ALT 7 (7-52) U/L Alkaline Phosphatase 64 (34-104) U/L Total Protein 6.8 (6.0-8.3) gm/dl Albumin 3.9 (3.4-5.0) gm/dl Globulin 2.9 (2.5-4.0) gm/dl Albumin/Globulin Ratio 1.3 (0.9-2) Procalcitonin Hepatitis C Ab (EIA) NON-REACTIVE (NON-REACTIVE) Hep C Ab Signal/Cutoff 0.01 (<1.00) Diagnostic Findings Abdomen Ultrasound 03/04/22 10:30 US abdomen limited right flank CLINICAL HISTORY: R back mass, s/p I D, eval fluid collection vs hem. COMPARISON: 02/29/2020 TECHNIQUE: Multiple grayscale and color images of the right flank of the abdomen. FINDINGS: Compared to previous examination, only a small residual fluid collection is present at the site of previously identified abscess/hematoma involving the right flank. It now measures 2.7 x 2.0 x 0.6 cm compared to 12 x 12 x 6 cm. No increased vascularity is present. IMPRESSION: 1. Very small residual fluid collection at the site of previous abscess/hematoma involving the right flank. ACT 112: Negative or not required by law. Electronically signed by: Luis Alberto Feng M.D. 03/04/2022 12:19 PM Abdomen/Pelvis CT 03/04/22 14:55 CT SCAN OF THE CHEST, ABDOMEN, AND PELVIS WITH IV CONTRAST CLINICAL HISTORY: Right-sided back mass. COMPARISON STUDY: Chest CT dated 10/11/2010. Abdominal CT dated 10/27/2017. TECHNIQUE: Following the IV administration of 94 of Optiray 320, CT scan of the chest, abdomen, and pelvis was performed from the thoracic inlet to the proximal femora. Images are reviewed in the axial, sagittal, and coronal planes. IV contrast was administered without complication. Oral contrast was utilized. A dose lowering technique was utilized adhering to the principles of ALARA. CT DOSE: 1492.10 mGycm FINDINGS: CHEST: Thyroid: Imaged portions of the thyroid gland are normal in size and attenuation. Thoracic aorta: There is mild atherosclerotic calcification of the thoracic aorta, which is normal in caliber and demonstrates standard 3-vessel arch anatomy. No dissection is seen. Pulmonary vasculature: The pulmonary trunk is normal in caliber. There are no filling defects identified in the central pulmonary vessels to indicate pulmonary embolus. Note that this examination was not protocoled for evaluation of the pulmonary arteries. Heart: The heart is normal in size and without pericardial effusion. The coronary arteries are densely calcified. Lungs and pleural spaces: There is mild bibasilar scarring/atelectasis. No airspace consolidation or pleural effusion is identified. The trachea and central airways are clear. Mediastinum: There is no mediastinal lymphadenopathy. Addis: Clear. Axillae: There is no axillary lymphadenopathy. Bony thorax: The skeletal structures are osteopenic. No lytic or blastic lesions are identified. Degenerative change and mild hyperkyphosis is noted in the thoracic spine. ABDOMEN AND PELVIS: Liver: The contrast-enhanced liver is normal in size, contour, and attenuation. There is no intrahepatic biliary ductal dilatation. The hepatic veins and portal veins are patent. Gallbladder: Surgically absent noting clips in the gallbladder fossa. Spleen: Normal in size and attenuation. Pancreas: Atrophic and grossly unremarkable. Adrenal glands: Unremarkable. Kidneys: The contrast enhanced kidneys demonstrate cortical atrophy and are without hydronephrosis. The kidneys enhance symmetrically. Subcentimeter cortical hypodensities likely represent cysts but are too small for definitive characterization. Abdominal vasculature: The abdominal aorta is normal in course and caliber noting advanced atherosclerotic calcification. Stomach and bowel: There is a small hiatal hernia. There is moderate colonic fecal retention. No bowel obstruction is identified. There is moderate to advanced colonic diverticulosis without CT evidence of acute diverticulitis. Duodenal diverticula are noted. The appendix is well-visualized and normal. Peritoneum: There is no intraperitoneal free air or abdominal ascites. Lymphadenopathy: None. Pelvic viscera: The prostate gland is enlarged and heterogeneous noting median lobe hypertrophy. The bladder wall appears thickened and trabeculated indicating chronic outlet obstruction. There is evidence of previous left inguinal herniorrhaphy. Skeletal structures: The skeletal structures are osteopenic. There is mild to moderate lumbosacral spondylosis. No lytic or blastic lesions are seen. Soft tissues: There is a wound with subcutaneous gas identified in the right lower back overlying the right posterior 11th and 12th ribs, possibly related to recent surgery. There is a hyperdense collection versus mass lesion within the soft tissues superficial to the abdominal wall. This closely approximates the right paraspinous musculature as seen on image #[address] This measures approximately 7.5 x 3 x 9.5 cm. This extends into the retroperitoneum as seen on axial image #169. A similar hyperdense mass/collection with an internal low- attenuation fluid collections is seen along the posterior aspect of the liver at levels of L1 and L2. This measures approximately 9 x 3 x 11 cm in aggregate dimension. The largest loculation of low-attenuation fluid is seen on image #138 measures approximately 4.5 x 2 x 7 cm. Smaller loculations are seen more superiorly on image #81 measuring up to 2.2 cm and on image #106 measuring up to 1.6 cm. This closely approximates but does not appear to invade the posterior aspect of liver. There are punctate calcifications suggested in the region of this collection posterior to the liver on images #146 and #156. IMPRESSION: 1. There is a large hyperdense fluid collection/mass lesion in the subcutaneous soft tissues of the right lower back as detailed above. This could represent a mass lesion or hematoma and clinical correlation will be essential. 2. This extends anteriorly into the retroperitoneum posterior to the liver as detailed above. There are loculated low-attenuation retroperitoneal fluid collections within the more hyperdense mass/collection. This is indeterminant and could represent necrosis, seroma, or possibly abscess. The sterility cannot be evaluated by imaging and clinical correlation will be essential. 3. This closely approximates the posterior aspect of the liver without evidence of invasion. 4. There are tiny calcifications in the region of the fluid collection posterior to the liver. These are indeterminant, and tiny dropped gallstones could potentially have this appearance. 5. The lungs are clear. There is no evidence of extension into the pleura. 6. Advanced coronary artery calcification. 7. Moderate constipation. 8. Colonic diverticulosis without CT evidence of acute diverticulitis. 9. Additional findings as above. Findings were discussed with Kelly Valero in surgery at the time of interpret ation. ACT 112: Negative or not required by law. Electronically signed by: Darian Dasilva M.D. 03/04/2022 4:[address] 03/04/22 15:04 CT SCAN OF THE CHEST, ABDOMEN, AND PELVIS WITH IV CONTRAST CLINICAL HISTORY: Right-sided back mass. COMPARISON STUDY: Chest CT dated 10/11/2010. Abdominal CT dated 10/27/2017. TECHNIQUE: Following the IV administration of 94 of Optiray 320, CT scan of the chest, abdomen, and pelvis was performed from the thoracic inlet to the proximal femora. Images are reviewed in the axial, sagittal, and coronal planes. IV contrast was administered without complication. Oral contrast was utilized. A dose lowering technique was utilized adhering to the principles of ALARA. CT DOSE: 1492.10 mGycm FINDINGS: CHEST: Thyroid: Imaged portions of the thyroid gland are normal in size and attenuation. Thoracic aorta: There is mild atherosclerotic calcification of the thoracic aorta, which is normal in caliber and demonstrates standard 3-vessel arch anatomy. No dissection is seen. Pulmonary vasculature: The pulmonary trunk is normal in caliber. There are no filling defects identified in the central pulmonary vessels to indicate pulmonary embolus. Note that this examination was not protocoled for evaluation of the pulmonary arteries. Heart: The heart is normal in size and without pericardial effusion. The coronary arteries are densely calcified. Lungs and pleural spaces: There is mild bibasilar scarring/atelectasis. No airspace consolidation or pleural effusion is identified. The trachea and central airways are clear. Mediastinum: There is no mediastinal lymphadenopathy. Addis: Clear. Axillae: There is no axillary lymphadenopathy. Bony thorax: The skeletal structures are osteopenic. No lytic or blastic lesions are identified. Degenerative change and mild hyperkyphosis is noted in the thoracic spine. ABDOMEN AND PELVIS: Liver: The contrast-enhanced liver is normal in size, contour, and attenuation. There is no intrahepatic biliary ductal dilatation. The hepatic veins and portal veins are patent. Gallbladder: Surgically absent noting clips in the gallbladder fossa. Spleen: Normal in size and attenuation. Pancreas: Atrophic and grossly unremarkable. Adrenal glands: Unremarkable. Kidneys: The contrast enhanced kidneys demonstrate cortical atrophy and are without hydronephrosis. The kidneys enhance symmetrically. Subcentimeter cortical hypodensities likely represent cysts but are too small for definitive characterization. Abdominal vasculature: The abdominal aorta is normal in course and caliber noting advanced atherosclerotic calcification. Stomach and bowel: There is a small hiatal hernia. There is moderate colonic fecal retention. No bowel obstruction is identified. There is moderate to advanced colonic diverticulosis without CT evidence of acute diverticulitis. Duodenal diverticula are noted. The appendix is well-visualized and normal. Peritoneum: There is no intraperitoneal free air or abdominal ascites. Lymphadenopathy: None. Pelvic viscera: The prostate gland is enlarged and heterogeneous noting median lobe hypertrophy. The bladder wall appears thickened and trabeculated indicating chronic outlet obstruction. There is evidence of previous left inguinal herniorrhaphy. Skeletal structures: The skeletal structures are osteopenic. There is mild to moderate lumbosacral spondylosis. No lytic or blastic lesions are seen. Soft tissues: There is a wound with subcutaneous gas identified in the right lower back overlying the right posterior 11th and 12th ribs, possibly related to recent surgery. There is a hyperdense collection versus mass lesion within the soft tissues superficial to the abdominal wall. This closely approximates the right paraspinous musculature as seen on image #[address] This measures approximately 7.5 x 3 x 9.5 cm. This extends into the retroperitoneum as seen on axial image #169. A similar hyperdense mass/collection with an internal low- attenuation fluid collections is seen along the posterior aspect of the liver at levels of L1 and L2. This measures approximately 9 x 3 x 11 cm in aggregate dimension. The largest loculation of low-attenuation fluid is seen on image #138 measures approximately 4.5 x 2 x 7 cm. Smaller loculations are seen more superiorly on image #81 measuring up to 2.2 cm and on image #106 measuring up to 1.6 cm. This closely approximates but does not appear to invade the posterior aspect of liver. There are punctate calcifications suggested in the region of this collection posterior to the liver on images #146 and #156. IMPRESSION: 1. There is a large hyperdense fluid collection/mass lesion in the subcutaneous soft tissues of the right lower back as detailed above. This could represent a mass lesion or hematoma and clinical correlation will be essential. 2. This extends anteriorly into the retroperitoneum posterior to the liver as detailed above. There are loculated low-attenuation retroperitoneal fluid collections within the more hyperdense mass/collection. This is indeterminant and could represent necrosis, seroma, or possibly abscess. The sterility cannot be evaluated by imaging and clinical correlation will be essential. 3. This closely approximates the posterior aspect of the liver without evidence of invasion. 4. There are tiny calcifications in the region of the fluid collection posterior to the liver. These are indeterminant, and tiny dropped gallstones could potentially have this appearance. 5. The lungs are clear. There is no evidence of extension into the pleura. 6. Advanced coronary artery calcification. 7. Moderate constipation. 8. Colonic diverticulosis without CT evidence of acute diverticulitis. 9. Additional findings as above. Findings were discussed with Kelly Valero in surgery at the time of interpretation. ACT 112: Negative or not required by law. Electronically signed by: Darian Dasilva M.D. 03/04/2022 4:42 PM PG Care Time/CCT Total # of Minutes Spent Total Time Spent with Patient: Total time spent is greater than 50% in coordination of care (as documented) at patient's floor/unit and/or counseling patient: Coding Level of Care Code 32874 Subseq Hosp Care Lvl 3 Diagnoses Abscess L02.91 CAD (coronary atherosclerotic disease) I25.10 Diabetic nephropathy associated with type 2 diabetes mellitus E11.21 Dyslipidemia E78.5
[2022-03-05] MEDS ORDERED: SODIUM CHLORIDE 0.9% 500 ML IV SCH (08:30)
[2022-03-05] MEDS: NovoLOG INSULIN PUMP SCH ×4 (08:32→21:01)
[2022-03-05] MEDS: ARTIFICIAL TEARS OP SCH (08:55)
[2022-03-05] MEDS: [UNRECOGNIZED DRUG - REMARK] PO SCH ×2 (08:55→21:02)
[2022-03-05] MEDS: DULoxetine HCL 30 MG CAP PO SCH ×2 (08:55→21:01)
[2022-03-05] MEDS: GABAPENTIN 600 MG TAB PO SCH ×2 (08:55→21:01)
[2022-03-05] MEDS: ROSUVASTATIN CALCIUM 20 MG TAB PO SCH (08:55)
[2022-03-05] MEDS ORDERED: JARDIANCE 10 MG PO SCH (09:00)
--- NOTE | 2022-03-05 15:25 | Surgery Progress Note ---
Date of Service March 05, 2022 Assessment & Plan (1) Abdominal wall mass of right flank: (2) Abscess of flank: Plan: POD # 3 s/p I&D of Right flank abscess -afebrile - vss -US 03/04/2022 showing small residual fluid collection at site of I&D - CT scan of abdomen/pelvis and chest completed yesterday for follow-up of outpatient CT scan abdomen/pelvis findings. See results above. Plan: Given his repeat CT scan of abdomen and pelvis showing persistent soft tissue mass vs hyperdense fluid collection extending to the retroperitoneum and similar appearing mass/hyperdense fluid collection posterior to liver with smaller fluid collections, patient may need IR drainage vs surgery for washout. Given the complex history and complex imaging findings would recommend transfer to tertiary center for further management. Dr. Mccormick has seen patient and agrees with above. Admission and Anticipated Discharge Date Admission Date: March 02, 2022 Subjective feeling well waiting for next steps by radiology for CT scan findings tolerating diet Physical Exam Constitutional: WD/WN, vitals as above no acute distress and not ill appearing Respiratory: normal respiratory effort; no respiratory distress Skin: no rashes, warm and dry no jaundice Psychiatric: A+Ox3, euthymic affect Results & Data ([facility]) Vital Signs (Past 12 Hours) Vital Signs Temp Pulse Resp BP Pulse Ox 03/05/22 07:46 36.6 C 70 16 158/81 H 96 Laboratory Results 03/05/22 03/05/22 03/05/22 Range/Units 12:16 08:26 06:24 WBC (4.8-10.8) K/uL RBC (4.7-6.1) M/uL Hgb (14.0-18.0) g/dL Hct (42-52) % MCV (80-100) fL MCH (25-34) pg MCHC (32-36) g/dL RDW Std Deviation (36.4-46.3) fL RDW Coeff of Slim (11.5-14.5) % Plt Count (130-400) K/uL MPV (7.4-10.4) fL Neutrophils % (Manual) % Lymphocytes % (Manual) % Monocytes % (Manual) % Eosinophils % (Manual) % Basophils % (Manual) % Neutrophils # (Manual) (1.4-6.5) K/uL Total Absolute Neuts (1.4-6.5) K/uL Lymphocytes # (Manual) (1.2-3.4) K/uL Total Abs Lymphocytes (1.2-3.4) K/uL Monocytes # (Manual) (0.11-0.59) K/uL Eosinophils # (Manual) (0-0.5) K/uL Basophils # (Manual) (0-0.2) K/uL Sodium (136-145) mmol/L Potassium (3.5-5.1) mmol/L Chloride (98-107) mmol/L Carbon Dioxide (21-32) mmol/L Anion Gap (3-11) BUN (6-23) mg/dl Creatinine (0.6-1.4) mg/dl Est Cr Clr Drug Dosing ml/min Est GFR ( Amer) ml/min Est GFR (Non-Af Amer) ml/min BUN/Creatinine Ratio (10-20) Glucose (70-99(Fasting)) mg/dl POC Glucose 203 H 160 H (70-99) mg/dl Calcium (8.5-10.1) mg/dl Magnesium (1.7-2.4) mg/dl Total Bilirubin (0.2-1.0) mg/dl AST (13-39) U/L ALT (7-52) U/L Alkaline Phosphatase (34-104) U/L Total Protein (6.0-8.3) gm/dl Albumin (3.4-5.0) gm/dl Globulin (2.5-4.0) gm/dl Albumin/Globulin Ratio (0.9-2) Procalcitonin < 0.05 (0-0.5) ng/ml Hepatitis C Ab (EIA) (NON-REACTIVE) Hep C Ab Signal/Cutoff (<1.00) 03/05/22 03/05/22 03/04/22 Range/Units 06:24 06:24 20:49 WBC 7.02 (4.8-10.8) K/uL RBC 4.68 L (4.7-6.1) M/uL Hgb 13.4 L (14.0-18.0) g/dL Hct 40.2 L (42-52) % MCV 85.9 (80-100) fL MCH 28.6 (25-34) pg MCHC 33.3 (32-36) g/dL RDW Std Deviation 47.5 H (36.4-46.3) fL RDW Coeff of Slim 15.2 H (11.5-14.5) % Plt Count 245 (130-400) K/uL MPV 8.7 (7.4-10.4) fL Neutrophils % (Manual) 79.8 % Lymphocytes % (Manual) 8.8 % Monocytes % (Manual) 3.5 % Eosinophils % (Manual) 7.0 % Basophils % (Manual) 0.9 % Neutrophils # (Manual) 5.60 (1.4-6.5) K/uL Total Absolute Neuts 5.60 (1.4-6.5) K/uL Lymphocytes # (Manual) 0.62 L (1.2-3.4) K/uL Total Abs Lymphocytes 0.62 L (1.2-3.4) K/uL Monocytes # (Manual) 0.25 (0.11-0.59) K/uL Eosinophils # (Manual) 0.49 (0-0.5) K/uL Basophils # (Manual) 0.06 (0-0.2) K/uL Sodium 141 (136-145) mmol/L Potassium 3.5 (3.5-5.1) mmol/L Chloride 107 (98-107) mmol/L Carbon Dioxide 29 (21-32) mmol/L Anion Gap 5 (3-11) BUN 26 H (6-23) mg/dl Creatinine 1.60 H (0.6-1.4) mg/dl Est Cr Clr Drug Dosing 46.1 ml/min Est GFR ( Amer) 47.8 ml/min Est GFR (Non-Af Amer) 41.2 ml/min BUN/Creatinine Ratio 16.3 (10-20) Glucose 176 H (70-99(Fasting)) mg/dl POC Glucose 255 H (70-99) mg/dl Calcium 9.6 (8.5-10.1) mg/dl Magnesium 1.9 (1.7-2.4) mg/dl Total Bilirubin 0.4 (0.2-1.0) mg/dl AST 10 L (13-39) U/L ALT 8 (7-52) U/L Alkaline Phosphatase 66 (34-104) U/L Total Protein 6.7 (6.0-8.3) gm/dl Albumin 3.8 (3.4-5.0) gm/dl Globulin 2.9 (2.5-4.0) gm/dl Albumin/Globulin Ratio 1.3 (0.9-2) Procalcitonin (0-0.5) ng/ml Hepatitis C Ab (EIA) (NON-REACTIVE) Hep C Ab Signal/Cutoff (<1.00) 03/04/22 Range/Units 07:30 WBC (4.8-10.8) K/uL RBC (4.7-6.1) M/uL Hgb (14.0-18.0) g/dL Hct (42-52) % MCV (80-100) fL MCH (25-34) pg MCHC (32-36) g/dL RDW Std Deviation (36.4-46.3) fL RDW Coeff of Slim (11.5-14.5) % Plt Count (130-400) K/uL MPV (7.4-10.4) fL Neutrophils % (Manual) % Lymphocytes % (Manual) % Monocytes % (Manual) % Eosinophils % (Manual) % Basophils % (Manual) % Neutrophils # (Manual) (1.4-6.5) K/uL Total Absolute Neuts (1.4-6.5) K/uL Lymphocytes # (Manual) (1.2-3.4) K/uL Total Abs Lymphocytes (1.2-3.4) K/uL Monocytes # (Manual) (0.11-0.59) K/uL Eosinophils # (Manual) (0-0.5) K/uL Basophils # (Manual) (0-0.2) K/uL Sodium (136-145) mmol/L Potassium (3.5-5.1) mmol/L Chloride (98-107) mmol/L Carbon Dioxide (21-32) mmol/L Anion Gap (3-11) BUN (6-23) mg/dl Creatinine (0.6-1.4) mg/dl Est Cr Clr Drug Dosing ml/min Est GFR ( Amer) ml/min Est GFR (Non-Af Amer) ml/min BUN/Creatinine Ratio (10-20) Glucose (70-99(Fasting)) mg/dl POC Glucose (70-99) mg/dl Calcium (8.5-10.1) mg/dl Magnesium (1.7-2.4) mg/dl Total Bilirubin (0.2-1.0) mg/dl AST (13-39) U/L ALT (7-52) U/L Alkaline Phosphatase (34-104) U/L Total Protein (6.0-8.3) gm/dl Albumin (3.4-5.0) gm/dl Globulin (2.5-4.0) gm/dl Albumin/Globulin Ratio (0.9-2) Procalcitonin (0-0.5) ng/ml Hepatitis C Ab (EIA) NON-REACTIVE (NON-REACTIVE) Hep C Ab Signal/Cutoff 0.01 (<1.00) Diagnostic Findings CT SCAN OF THE CHEST, ABDOMEN, AND PELVIS WITH IV CONTRAST CLINICAL HISTORY: Right-sided back mass. COMPARISON STUDY: Chest CT dated 10/11/2010. Abdominal CT dated 10/27/2017. TECHNIQUE: Following the IV administration of 94 of Optiray 320, CT scan of the chest, abdomen, and pelvis was performed from the thoracic inlet to the proximal femora. Images are reviewed in the axial, sagittal, and coronal planes. IV contrast was administered without complication. Oral contrast was utilized. A dose lowering technique was utilized adhering to the principles of ALARA. CT DOSE: 1492.10 mGycm FINDINGS: CHEST: Thyroid: Imaged portions of the thyroid gland are normal in size and attenuation. Thoracic aorta: There is mild atherosclerotic calcification of the thoracic aorta, which is normal in caliber and demonstrates standard 3-vessel arch anatomy. No dissection is seen. Pulmonary vasculature: The pulmonary trunk is normal in caliber. There are no filling defects identified in the central pulmonary vessels to indicate pulmonary embolus. Note that this examination was not protocoled for evaluation of the pulmonary arteries. Heart: The heart is normal in size and without pericardial effusion. The coronary arteries are densely calcified. Lungs and pleural spaces: There is mild bibasilar scarring/atelectasis. No airspace consolidation or pleural effusion is identified. The trachea and central airways are clear. Mediastinum: There is no mediastinal lymphadenopathy. Addis: Clear. Axillae: There is no axillary lymphadenopathy. Bony thorax: The skeletal structures are osteopenic. No lytic or blastic lesions are identified. Degenerative change and mild hyperkyphosis is noted in the thoracic spine. ABDOMEN AND PELVIS: Liver: The contrast-enhanced liver is normal in size, contour, and attenuation. There is no intrahepatic biliary ductal dilatation. The hepatic veins and portal veins are patent. Gallbladder: Surgically absent noting clips in the gallbladder fossa. Spleen: Normal in size and attenuation. Pancreas: Atrophic and grossly unremarkable. Adrenal glands: Unremarkable. Kidneys: The contrast enhanced kidneys demonstrate cortical atrophy and are without hydronephrosis. The kidneys enhance symmetrically. Subcentimeter corti jameel hypodensities likely represent cysts but are too small for definitive characterization. Abdominal vasculature: The abdominal aorta is normal in course and caliber noting advanced atherosclerotic calcification. Stomach and bowel: There is a small hiatal hernia. There is moderate colonic fecal retention. No bowel obstruction is identified. There is moderate to advanced colonic diverticulosis without CT evidence of acute diverticulitis. Duodenal diverticula are noted. The appendix is well-visualized and normal. Peritoneum: There is no intraperitoneal free air or abdominal ascites. Lymphadenopathy: None. Pelvic viscera: The prostate gland is enlarged and heterogeneous noting median lobe hypertrophy. The bladder wall appears thickened and trabeculated indicating chronic outlet obstruction. There is evidence of previous left inguinal herniorrhaphy. Skeletal structures: The skeletal structures are osteopenic. There is mild to moderate lumbosacral spondylosis. No lytic or blastic lesions are seen. Soft tissues: There is a wound with subcutaneous gas identified in the right lower back overlying the right posterior 11th and 12th ribs, possibly related to recent surgery. There is a hyperdense collection versus mass lesion within the soft tissues superficial to the abdominal wall. This closely approximates the right paraspinous musculature as seen on image #[address] This measures approximately 7.5 x 3 x 9.5 cm. This extends into the retroperitoneum as seen on axial image #169. A similar hyperdense mass/collection with an internal low- attenuation fluid collections is seen along the posterior aspect of the liver at levels of L1 and L2. This measures approximately 9 x 3 x 11 cm in aggregate dimension. The largest loculation of low-attenuation fluid is seen on image #138 measures approximately 4.5 x 2 x 7 cm. Smaller loculations are seen more superiorly on image #81 measuring up to 2.2 cm and on image #106 measuring up to 1.6 cm. This closely approximates but does not appear to invade the posterior aspect of liver. There are punctate calcifications suggested in the region of this collection posterior to the liver on images #146 and #156. IMPRESSION: 1. There is a large hyperdense fluid collection/mass lesion in the subcutaneous soft tissues of the right lower back as detailed above. This could represent a mass lesion or hematoma and clinical correlation will be essential. 2. This extends anteriorly into the retroperitoneum posterior to the liver as detailed above. There are loculated low-attenuation retroperitoneal fluid collections within the more hyperdense mass/collection. This is indeterminant and could represent necrosis, seroma, or possibly abscess. The sterility cannot be evaluated by imaging and clinical correlation will be essential. 3. This closely approximates the posterior aspect of the liver without evidence of invasion. 4. There are tiny calcifications in the region of the fluid collection posterior to the liver. These are indeterminant, and tiny dropped gallstones could potentially have this appearance. 5. The lungs are clear. There is no evidence of extension into the pleura. 6. Advanced coronary artery calcification. 7. Moderate constipation. 8. Colonic diverticulosis without CT evidence of acute diverticulitis. 9. Additional findings as above.
--- NOTE | 2022-03-05 18:27 | Discharge Summary ---
Date of Service March 05, 2022 Admission HPI Per Admitting Provider This is a 76-year-old male with past medical history of insulin-dependent diabetes mellitus, hyperlipidemia, and coronary disease presents today with a draining mass of his right flank. Patient is pleasant a good historian. Patient tells me approximately 3 weeks ago he noticed a large soft tissue mass in his right flank after taking a shower. At the time it was mildly sore but not overly painful. He saw his primary care physician and subsequently was seen in urgent care [facility] and was told that there was consideration that this was a solid mass. He had a CT scan at an outside facility that did have some c oncern with this. Patient was ultimately seen on 02/19 at [facility] where he had this area biopsied by interventional radiology. He tells me immediately post procedure, he had significant bloody drainage from the area but was told just to hold pressure and that it would eventually resolve. It essentially did almost completely until yesterday when it started to drain yellow material from the puncture site. At that point he presented to the emergency room for further evaluation. I did review the records from [facility]. There is also a biopsy report that felt this was a reactive/benign atypical cyst possible only a resolving abscess but there was no evidence of malignancy. Ultrasound performed emergency room shows a large fluid-filled area. Patient is now being admitted for IV antibiotics and surgical evaluation. Admission Exam Per Admitting Provider Constitutional: cooperative; no acute distress Neck: trachea midline, no thyromegaly Respiratory: normal respiratory effort Auscultation: lungs clear to auscultation bilaterally; no crackles, no rales, no rhonchi and no wheezes Cardiovascular: Rate/Rhythm: regular rate and regular rhythm Heart Sounds: normal S1 and normal S2 Gastrointestinal (Abdomen): Inspection/Auscultation: abdomen normal to inspection Percussion/Palpation: abdomen soft; abdomen nontender, no guarding, abdomen not rigid and no hepatosplenomegaly Skin: no rashes, warm and dry Large soft tissue mass noted in the right back/flank area. Some ecchymosis on top but no surrounding edema or erythema. Lateral to this is a small puncture wound, draining serous fluid with a small amount of purulence. Grossly nontender to patient. Principal Diagnosis Complex Abscess/Fluid collection, dropped gallstones Discharge Exam General: WD/WN male sitting up in bed, NAD HEENT; pupils anicteric, head atraumatic/normocephalic, mm improved, trachea midline without deviation Resp: CTAB, no w/c/r, on room air CV: RRR, no m/r/g, no edema GI: +Bs, soft, nt/nd : no worley MSK/Neuro: CN intact grossly, no focal deficit, moves all extremities Skin: R flank/lower back with dressing c/d/i, packing with scant blood, optifoam covering, minimally tender to palpation/less induration, no surrounding cellulitis Psych: aox3, pleasant and cooperative Discharge Data Allergies Allergy/AdvReac Type Severity Reaction Status Date / Time No Known Allergies Allergy Verified 02/28/22 15:11 Consultations 02/28/22 16:29 ED Decision to Admit Stat 02/28/22 21:24 Consult General Surgery Routine 03/04/22 17:30 Consult Infectious Diseases Routine 03/05/22 15:35 Burn CD for patient Routine Procedures Performed Operation Date: 03/02/22 07:30 Actual Procedures p Incision and Drainage Right Flank Abscess(Right) - Manpreet Werner MD Ordered Studies Abdomen Ultrasound 02/28/22 14:13 US abdomen limited HISTORY: 76 years-old Male right flankmass s/p biopsy eval for abscess acute right-sided flank pain COMPARISON: CT abdomen pelvis 10/27/2017 TECHNIQUE: Multiple real-time sonographic images of the right flank soft tissues were obtained assessing grayscale appearance and color flow FINDINGS/IMPRESSION: Within the posterior right flank soft tissues there is a heterogeneous reportedly recently biopsied mass with ill-defined margins containing a 12.0 x 12.0 x 6.0 cm collection with layering mobile debris. Findings may represent a superimposed abscess versus hematoma. Correlation with biopsy results recommended. ACT 112: Negative or not required by law. The above report was generated using voice recognition software. It may contain grammatical, syntax or spelling errors. Electronically signed by: Hari Brady M.D. 02/28/2022 3:39 PM Chest X-Ray 03/01/22 14:06 XR chest 1V portable CLINICAL HISTORY: pre-op, chronic sob TECHNIQUE: Single frontal radiograph of the chest was obtained. Comparison: Comparison is made to chest radiograph 10/27/2017 FINDINGS: No lines and tubes are seen. The cardiomediastinal silhouette is normal. The lungs are clear. No evidence of pleural effusion or pneumothorax. IMPRESSION: No acute abnormalities and in particular no evidence of pneumonia. ACT 112: Negative or not required by law. Electronically signed by: Andrei Pierce M.D. 03/01/2022 2:58 PM Abdomen Ultrasound 03/04/22 10:30 US abdomen limited right flank CLINICAL HISTORY: R back mass, s/p I D, eval fluid collection vs hem. COMPARISON: 02/29/2020 TECHNIQUE: Multiple grayscale and color images of the right flank of the abdomen. FINDINGS: Compared to previous examination, only a small residual fluid collection is present at the site of previously identified abscess/hematoma involving the right flank. It now measures 2.7 x 2.0 x 0.6 cm compared to 12 x 12 x 6 cm. No increased vascularity is present. IMPRESSION: 1. Very small residual fluid collection at the site of previous abscess/hematoma involving the right flank. ACT 112: Negative or not required by law. Electronically signed by: Luis Alberto Feng M.D. 03/04/2022 12:19 PM Abdomen/Pelvis CT 03/04/22 14:55 CT SCAN OF THE CHEST, ABDOMEN, AND PELVIS WITH IV CONTRAST CLINICAL HISTORY: Right-sided back mass. COMPARISON STUDY: Chest CT dated 10/11/2010. Abdominal CT dated 10/27/2017. TECHNIQUE: Following the IV administration of 94 of Optiray 320, CT scan of the chest, abdomen, and pelvis was performed from the thoracic inlet to the proximal femora. Images are reviewed in the axial, sagittal, and coronal planes. IV contrast was administered without complication. Oral contrast was utilized. A dose lowering technique was utilized adhering to the principles of ALARA. CT DOSE: 1492.10 mGycm FINDINGS: CHEST: Thyroid: Imaged portions of the thyroid gland are normal in size and attenuation. Thoracic aorta: There is mild atherosclerotic calcification of the thoracic aorta, which is normal in caliber and demonstrates standard 3-vessel arch anatomy. No dissection is seen. Pulmonary vasculature: The pulmonary trunk is normal in caliber. There are no filling defects identified in the central pulmonary vessels to indicate pulmonary embolus. Note that this examination was not protocoled for evaluation of the pulmonary arteries. Heart: The heart is normal in size and without pericardial effusion. The coronary arteries are densely calcified. Lungs and pleural spaces: There is mild bibasilar scarring/atelectasis. No airspace consolidation or pleural effusion is identified. The trachea and central airways are clear. Mediastinum: There is no mediastinal lymphadenopathy. Addis: Clear. Axillae: There is no axillary lymphadenopathy. Bony thorax: The skeletal structures are osteopenic. No lytic or blastic lesions are identified. Degenerative change and mild hyperkyphosis is noted in the thoracic spine. ABDOMEN AND PELVIS: Liver: The contrast-enhanced liver is normal in size, contour, and attenuation. There is no intrahepatic biliary ductal dilatation. The hepatic veins and portal veins are patent. Gallbladder: Surgically absent noting clips in the gallbladder fossa. Spleen: Normal in size and attenuation. Pancreas: Atrophic and grossly unremarkable. Adrenal glands: Unremarkable. Kidneys: The contrast enhanced kidneys demonstrate cortical atrophy and are without hydronephrosis. The kidneys enhance symmetrically. Subcentimeter cortical hypodensities likely represent cysts but are too small for definitive characterization. Abdominal vasculature: The abdominal aorta is normal in course and caliber noting advanced atherosclerotic calcification. Stomach and bowel: There is a small hiatal hernia. There is moderate colonic fecal retention. No bowel obstruction is identified. There is moderate to advanced colonic diverticulosis without CT evidence of acute diverticulitis. Duodenal diverticula are noted. The appendix is well-visualized and normal. Peritoneum: There is no intraperitoneal free air or abdominal ascites. Lymphadenopathy: None. Pelvic viscera: The prostate gland is enlarged and heterogeneous noting median lobe hypertrophy. The bladder wall appears thickened and trabeculated indicating chronic outlet obstruction. There is evidence of previous left inguinal herniorrhaphy. Skeletal structures: The skeletal structures are osteopenic. There is mild to moderate lumbosacral spondylosis. No lytic or blastic lesions are seen. Soft tissues: There is a wound with subcutaneous gas identified in the right lower back overlying the right posterior 11th and 12th ribs, possibly related to recent surgery. There is a hyperdense collection versus mass lesion within the soft tissues superficial to the abdominal wall. This closely approximates the right paraspinous musculature as seen on image #[address] This measures approximately 7.5 x 3 x 9.5 cm. This extends into the retroperitoneum as seen on axial image #169. A similar hyperdense mass/collection with an internal low- attenuation fluid collections is seen along the posterior aspect of the liver at levels of L1 and L2. This measures approximately 9 x 3 x 11 cm in aggregate dimension. The largest loculation of low-attenuation fluid is seen on image #138 measures approximately 4.5 x 2 x 7 cm. Smaller loculations are seen more superiorly on image #81 measuring up to 2.2 cm and on image #106 measuring up to 1.6 cm. This closely approximates but does not appear to invade the posterior aspect of liver. There are punctate calcifications suggested in the region of this collection posterior to the liver on images #146 and #156. IMPRESSION: 1. There is a large hyperdense fluid collection/mass lesion in the subcutaneous soft tissues of the right lower back as detailed above. This could represent a mass lesion or hematoma and clinical correlation will be essential. 2. This extends anteriorly into the retroperitoneum posterior to the liver as detailed above. There are loculated low-attenuation retroperitoneal fluid collections within the more hyperdense mass/collection. This is indeterminant and could represent necrosis, seroma, or possibly abscess. The sterility cannot be evaluated by imaging and clinical correlation will be essential. 3. This closely approximates the posterior aspect of the liver without evidence of invasion. 4. There are tiny calcifications in the region of the fluid collection posterior to the liver. These are indeterminant, and tiny dropped gallstones could potentially have this appearance. 5. The lungs are clear. There is no evidence of extension into the pleura. 6. Advanced coronary artery calcification. 7. Moderate constipation. 8. Colonic diverticulosis without CT evidence of acute diverticulitis. 9. Additional findings as above. Findings were discussed with Kelly Valero in surgery at the time of interpretation. ACT 112: Negative or not required by law. Electronically signed by: Darian Dasilva M.D. 03/04/2022 4:[address] 03/04/22 15:04 CT SCAN OF THE CHEST, ABDOMEN, AND PELVIS WITH IV CONTRAST CLINICAL HISTORY: Right-sided back mass. COMPARISON STUDY: Chest CT dated 10/11/2010. Abdominal CT dated 10/27/2017. TECHNIQUE: Following the IV administration of 94 of Optiray 320, CT scan of the chest, abdomen, and pelvis was performed from the thoracic inlet to the proximal femora. Images are reviewed in the axial, sagittal, and coronal planes. IV contrast was administered without complication. Oral contrast was utilized. A dose lowering technique was utilized adhering to the principles of ALARA. CT DOSE: 1492.10 mGycm FINDINGS: CHEST: Thyroid: Imaged portions of the thyroid gland are normal in size and attenuation. Thoracic aorta: There is mild atherosclerotic calcification of the thoracic aorta, which is normal in caliber and demonstrates standard 3-vessel arch anatomy. No dissection is seen. Pulmonary vasculature: The pulmonary trunk is normal in caliber. There are no filling defects identified in the central pulmonary vessels to indicate pulmonary embolus. Note that this examination was not protocoled for evaluation of the pulmonary arteries. Heart: The heart is normal in size and without pericardial effusion. The coronary arteries are densely calcified. Lungs and pleural spaces: There is mild bibasilar scarring/atelectasis. No airspace consolidation or pleural effusion is identified. The trachea and central airways are clear. Mediastinum: There is no mediastinal lymphadenopathy. Addis: Clear. Axillae: There is no axillary lymphadenopathy. Bony thorax: The skeletal structures are osteopenic. No lytic or blastic lesions are identified. Degenerative change and mild hyperkyphosis is noted in the thoracic spine. ABDOMEN AND PELVIS: Liver: The contrast-enhanced liver is normal in size, contour, and attenuation. There is no intrahepatic biliary ductal dilatation. The hepatic veins and portal veins are patent. Gallbladder: Surgically absent noting clips in the gallbladder fossa. Spleen: Normal in size and attenuation. Pancreas: Atrophic and grossly unremarkable. Adrenal glands: Unremarkable. Kidneys: The contrast enhanced kidneys demonstrate cortical atrophy and are without hydronephrosis. The kidneys enhance symmetrically. Subcentimeter cortical hypodensities likely represent cysts but are too small for definitive characterization. Abdominal vasculature: The abdominal aorta is normal in course and caliber noting advanced atherosclerotic calcification. Stomach and bowel: There is a small hiatal hernia. There is moderate colonic fecal retention. No bowel obstruction is identified. There is moderate to advanced colonic diverticulosis without CT evidence of acute diverticulitis. Duodenal diverticula are noted. The appendix is well-visualized and normal. Peritoneum: There is no intraperitoneal free air or abdominal ascites. Lymphadenopathy: None. Pelvic viscera: The prostate gland is enlarged and heterogeneous noting median lobe hypertrophy. The bladder wall appears thickened and trabeculated indicating chronic outlet obstruction. There is evidence of previous left inguinal herniorrhaphy. Skeletal structures: The skeletal structures are osteopenic. There is mild to moderate lumbosacral spondylosis. No lytic or blastic lesions are seen. Soft tissues: There is a wound with subcutaneous gas identified in the right lower back overlying the right posterior 11th and 12th ribs, possibly related to recent surgery. There is a hyperdense collection versus mass lesion within the soft tissues superficial to the abdominal wall. This closely approximates the right paraspinous musculature as seen on image #[address] This measures approximately 7.5 x 3 x 9.5 cm. This extends into the retroperitoneum as seen on axial image #169. A similar hyperdense mass/collection with an internal low- attenuation fluid collections is seen along the posterior aspect of the liver at levels of L1 and L2. This measures approximately 9 x 3 x 11 cm in aggregate dimension. The largest loculation of low-attenuation fluid is seen on image #138 measures approximately 4.5 x 2 x 7 cm. Smaller loculations are seen more superiorly on image #81 measuring up to 2.2 cm and on image #106 measuring up to 1.6 cm. This closely approximates but does not appear to invade the posterior aspect of liver. There are punctate calcifications suggested in the region of this collection posterior to the liver on images #146 and #156. IMPRESSION: 1. There is a large hyperdense fluid collection/mass lesion in the subcutaneous soft tissues of the right lower back as detailed above. This could represent a mass lesion or hematoma and clinical correlation will be essential. 2. This extends anteriorly into the retroperitoneum posterior to the liver as detailed above. There are loculated low-attenuation retroperitoneal fluid collections within the more hyperdense mass/collection. This is indeterminant and could represent necrosis, seroma, or possibly abscess. The sterility cannot be evaluated by imaging and clinical correlation will be essential. 3. This closely approximates the posterior aspect of the liver without evidence of invasion. 4. There are tiny calcifications in the region of the fluid collection posterior to the liver. These are indeterminant, and tiny dropped gallstones could potentially have this appearance. 5. The lungs are clear. There is no evidence of extension into the pleura. 6. Advanced coronary artery calcification. 7. Moderate constipation. 8. Colonic diverticulosis without CT evidence of acute diverticulitis. 9. Additional findings as above. Findings were discussed with Kelly Valero in surgery at the time of interpretation. ACT 112: Negative or not required by law. Electronically signed by: Darian Dasilva M.D. 03/04/2022 4:42 PM Hospital Course (1) Abscess: Following biopsy which was "benign" at tertiary facility -- general surgery PA pulled up report -- "biopsy showed granulation tissue, osteoclastic giant cells and necrosis favor reactive and benign findings" however prior imaging with noted fluid collection/mass extending to R 12th rib level Postprocedural right flank abscess after biopsy, a complication of care but likely from dropped gallstones s/p I&D performed by Dr Werner 03/02. Initially on Vanco/Zosyn --> discontinued Vanco given Klebsiella on initial cx. OR cx preliminary no growth Blood cultures ngtd >48hrs WBC wnl, afebrile Initial surgeon not aware of prior extensiveness of fluid collection prior to I&D. Reviewed prior imaging which prompted bx initially with general surgery PA, which showed extensive fluid collection to the ribs Decided to repeat imaging following I&D for CTAP/Chest for eval CTAP/Chest with 1. There is a large hyperdense fluid collection/mass lesion in the subcutaneous soft tissues of the right lower back as detailed above. This could represent a mass lesion or hematoma and clinical correlation will be essential. 2. This extends anteriorly into the retroperitoneum posterior to the liver as detailed above. There are loculated low-attenuation retroperitoneal fluid collections within the more hyperdense mass/collection. This is indeterminant and could represent necrosis, seroma, or possibly abscess. The sterility cannot be evaluated by imaging and clinical correlation will be essential. 3. This closely approximates the posterior aspect of the liver without evidence of invasion. 4. There are tiny calcifications in the region of the fluid collection posterior to the liver. These are indeterminant, and tiny dropped gallstones could potentially have this appearance. ID consult ordered but unable to be done 03/05 Prior cholecystectomy 2018 with requirement for transhepatic cholangiogram at [place] and noted dropped gallstones in OP report Given imaging, concerning for source/long standing infection with dropped gallstones and discussed with Dr Thomson from Radiology, unable to drain given location and rec transfer Discussed with providers at [place] and ultimately decision to accept under Dr Coburn from internal medicine and Interventional radiologist Dr Dolan for drain placement/continued care/bx/cx Possibly have a bed tonight and able to intervene tomorrow vs transfer in AM pending bed Still with packing in wound currently Would rec f/u locally with wound care after d/c from [place] Transfer when bed available (2) CAD (coronary atherosclerotic disease): Continue medication as per outpatient, statin and low-dose aspirin. --> placed aspirin on hold 03/04 given bleeding Currently asymptomatic (3) Diabetic nephropathy associated with type 2 diabetes mellitus: Pharmacy consulted for glycemic control however patient will manage his own insulin today using pump --> SUGARS RUNNING HIGH 03/03 Jardiance and Victoza not available on hospital formulary On gabapentin, can continue HbA1C 8.5 BSGs elevated initially due to dietary indiscretions, improved over last 24-48 hours and insistent on using his own pump Resumed usual jardiance, brought from home Suspect related to infection as reporting lows at home as well. Stressed importance of good control to promote wound healing (4) Dyslipidemia: Continue rosuvastatin SCDs utilized for DVT prophylaxis given prior bleeding from wound/hematoma vs fluid collection as above Transfer to [facility] when bed/transportation available Total Time Total Time Spent Total Time Spent (In Minutes): 130 Discharge Plan Discharge Items Patient Disposition: Transfer Acute Care Hospital Reason For Visit: R FLANK ABCESS Discharge Diagnosis: Complex Fluid collection/mass requiring interventional radiology Goals: You have been hospitalized for an urgent problem which required surgery. During your stay at [facility], we have made an effort to correct the problem that brought you to the hospital while keeping you as comfortable as possible. Surgery and medications were used to bring your condition under cont rol and your discharge instructions will include directions for any medications you should take after leaving the hospital. Please make sure to follow the advice of your surgeon regarding follow up with the surgeon and with your primary care provider. Activity: As commented below Non-emergency contact: Primary Care Provider Call non-emergency contact if: you have any medication questions Follow-up/Referrals: Bradly Chin, [Primary Care Provider] - Diet: Carb Consistent or DM2 and Heart Healthy Addtl Attending Provider Instructions: You have been hospitalized for concerns for infection after a biopsy of lower back mass. Cultures did show bacteria and you have remained on antibiotics and your labs been stable/improved, however as discussed at length, concerns for this complex fluid collection coming from prior surgery on your gallbladder with gallstones remaining which could have taken several years to manifest it's way through the tissues. General surgery is also recommending transfer to tertiary care for interventional radiology for drainage and transportation has been arranged when bed is available. Please follow up with your primary care provider after discharge from [place] and contact the wound care center for continued local wound care follow-up. It has been a pleasure being a part of the medical team providing for you while you have been in the hospital and I wish you the best! Pending Studies at Discharge: Yes Studies:: OR cultures, preliminary no growth Blood cultures -- no growth to date Stand-Alone Forms: My [facility] Skilled Items Patient informed of condition?: Yes DNR: No Discharge Level of Care: Other Communicable Disease: No Discharge Prognosis: Stable Lines: Peripheral IV Urinary Catheter: No Medications and DC Order Prescriptions: Continued Repatha SureClick 140 mg/mL pen injector 140 mg subcut .every other week Qty: 6 RF: 3 gabapentin 600 mg tablet 1,200 mg PO BID 90 Days Qty: 360 RF: 3 icosapent ethyl 1 gram capsule 2 g PO BID Qty: 360 RF: 3 duloxetine [Cymbalta] 30 mg capsule,delayed release(DR/EC) 30 mg PO BID Qty: 180 RF: 3 insulin lispro [Humalog U-100 Insulin] 100 unit/mL solution 100 unit subcut DIRECTED RF: 0 insulin aspart U-100 [Novolog U-100 Insulin aspart] 100 unit/mL solution See Rx Instructions .ROUTE .COMPLEX Qty: 110 RF: 1 peg 400-propylene glycol 0.4-0.3 % drops 1 drops OP QAM RF: 0 cholecalciferol (vitamin D3) 25 mcg (1,000 unit) tablet 1,000 unit PO QAM PRN (Reason: (Drug) Ingestion) RF: 0 cyanocobalamin (vitamin B-12) 1,000 mcg tablet 1,000 mcg PO QAM PRN (Reason: Digestion) Qty: 100 RF: 0 sildenafil 100 mg tablet 50 mg PO ONCE PRN (Reason: sexual activity) Qty: 7 RF: 3 Victoza 3-Bravo 0.6 mg/0.1 mL (18 mg/3 mL) pen injector 1.8 mg subcut QAM RF: 0 rosuvastatin 40 mg tablet 40 mg PO QAM RF: 0 Jardiance 10 mg tablet 10 mg PO QAM RF: 0 aspirin 81 mg Tablet,Chewable 81 mg PO QAM RF: 0 Discontinued naproxen 500 mg tablet 500 mg PO BID PRN (Reason: pain) Qty: 60 RF: 0 Discharge Orders: Discharge Order (Routine); Ordered 03/05/22 Ordered By: Ariella Bryant Admission Data Admit Date/Time: 03/02/22 21:30 Attending Provider: Taco Ferrara Admit Provider: Quinton Blevins Primary Care Provider: Bradly Chin Other Providers: Manpreet Werner ; Taco Ferrara ; Rafael Holley ; Guerita Burciaga ; Dequan Treadwell I. ; Benito Carty II ; Beth Senior ; Valerio Bran ; Ryan Potter Other Interventions: Discharge Summary Assessment (RN) Last Done: 03/05/22 23:25 Coding Level of Care Code D/C DAY MANAGEMENT >30 MINS Diagnoses Abscess L02.91 CAD (coronary atherosclerotic disease) I25.10 Diabetic nephropathy associated with type 2 diabetes mellitus E11.21 Dyslipidemia E78.5
[2022-03-06] MEDS ORDERED: EMPAGLIFLOZIN 10 MG PO SCH (09:00)
--- NOTE | 2022-03-25 12:29 | Operative Report (OR) ---
DATE OF PROCEDURE: 03/02/2022. PREOPERATIVE DIAGNOSIS: Right flank deep abscess. POSTOPERATIVE DIAGNOSIS: Right flank deep abscess. PROCEDURE PERFORMED: I and D of deep right flank abscess. SURGEON: Manpreet Werner MD. DORR OPERATOR: None. ANESTHESIA: General with 0.5% Marcaine with epinephrine local. ESTIMATED BLOOD LOSS: 5 mL. DRAINS: None. COMPLICATIONS: None. INDICATIONS FOR PROCEDURE: This is a 76-year-old male with a complex medical history who has a drain ing right flank mass with an abscess, which appears to extend down to his retroperitoneum. This was biopsied with just inflammatory cells. The redness has increased, pain has increased, and therefore, we will take him to the OR and do an I and D and drainage of this abscess cavity. DESCRIPTION OF PROCEDURE: The patient was taken to the OR and underwent excellent general anesthesia . He was placed in the left lateral decubitus position. His right flank was then prepped and draped in normal sterile fashion. An area of fluctuation was identified. An inch and half incision was ma de. Dissection was taken down to enter the cavity. This was entered and drained. It was then irrig ated out well and packed with a gauze. A sterile dressing was applied. He tolerated the procedure w ell without complication and sent to postop recovery for a period of observation and then be discharg ed to his room once he meets criteria. Job ID: [id number]
== END 2022-03-05 23:27 | disposition short-term general hospital (02) | DRG 863 ==
LOC: 3W 13:37 → ED 13:37 → SUATTDRO 17:19 → 3W 21:00 → SUATTDRO 03-02 21:30

== ENCOUNTER 2024-08-25 11:59 | Observation (INO) ==
[2024-08-25] MEDS: SODIUM CHLORIDE 0.9% 1,000 ML IV ONE (12:48)
--- NOTE | 2024-08-25 12:51 | Emergency Department Note ---
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 Patient was checking in and had a syncopal episode where Manager Organizational staff and helped him to the ground. Patient not hit his head. Patient denies any current symptoms. Patient states he had a similar episode 3 weeks ago and that is why he was being referred by his primary to cardiology today. Patient states sometimes when he does stand up he feels lightheaded. Patient currently asymptomatic. PAST MEDICAL HISTORY: See Below PAST SURGICAL HISTORY: See Below SOCIAL HISTORY: See Below HOME MEDICATIONS: See Below ALLERGIES: See Below VITALS: See Below PHYSICAL EXAMINATION: GENERAL: Well appearing, well nourished, NAD, non-toxic. EYE EXAM: Normal conjunctiva. OROPHARYNX: Moist mucus membranes. Grossly normal dentition. NECK: Supple, LUNGS: Clear to auscultation. Normal chest wall mechanics. HEART: NSR ABDOMEN: Abdomen soft, non-tender, normo-active bowel sounds, no masses, no rebound or guarding BACK: No CVA TTP. SKIN: No rashes and no bruising. UPPER EXTREMITIES: Upper extremities are grossly normal LOWER EXTREMITIES: Grossly normal, no edema. NEURO EXAM: A&O x3,, normal speech, moves all 4 extremities PSYCH: Cooperative MEDICAL DECISION MAKING: History obtained from: Patient ER Course: Patient 78-year-old male presenting status post syncopal episode. Patient was at the internal medicine veterinary technician office and while checking in had a syncopal episode witnessed by and staff. Patient was helped to the ground. Patient has no active chest pain or shortness of breath. Patient's EKG without signs of ischemia. Patient's troponin negative. Patient has no electrolyte abnormalities. Patient monitored on heart rhythm no signs of dysrhythmia at this time. I had the patient's stand up at bedside and performed a blood pressure. Patient's lying down blood pressure was 160 systolic and standing up went down to 120 systolic. I believe this may be partial reason for the events that have been occurring. Patient states that there have been at least 3 syncopal events within the past 2 months time. Patient was admitted to the hospital service for observation overnight. Labs (independently interpreted) are significant for: Troponin negative Imaging results (independently interpreted): Chest x-ray clear EKG interpretation (independently interpreted): Normal sinus rhythm no ST segment elevation or depression Medications given: Normal saline bolus Consultants: Hospitalist Triage Nursing notes reviewed and agree them. Vital Signs: reviewed and remarkable for: no significant abnormalities Past Med/Surg History Problem List (Updated 08/25/24 @ 19:32 by Fitz Mock DO) Syncope (Acute) Acute kidney injury Diabetes mellitus, type 2 Hypokalemia Hypotension Syncope Aortic systolic murmur on examination Background diabetic retinopathy associated with type 2 diabetes mellitus Incomplete emptying of bladder BPH with obstruction/lower urinary tract symptoms Myasthenia gravis following with [facility] neuro: "primarily ocular MG, monitor for persistent dysphagia" Elevated prostate specific antigen (PSA) CAD (coronary atherosclerotic disease) Agatston calcium score was 2411.( left main 118; lad 710; left circumflex month 1436; RCA 118). This scan reported diffuse calcified plaque in all coronary arteries. RCA non dominant; dobutamine stress echocardiogram thereafter without evidence of myocardial ischemia; follows with [facility] Hypertension Vitamin D deficiency Stage III chronic kidney disease Proteinuria Obesity Dyslipidemia Dysesthesia Diabetic peripheral neuropathy associated with type 2 diabetes mellitus Diabetes mellitus type 2, uncontrolled Medical History History of GI bleed Macular degeneration Diabetic retinopathy Diabetic peripheral neuropathy Myasthenia gravis Stage III chronic kidney disease Dyslipidemia Hypertension Diabetes mellitus, type 2 CAD (coronary atherosclerotic disease) BPH with obstruction/lower urinary tract symptoms Systolic murmur of aorta History of kidney stones Dysphagia Hx of drainage of abscess Tinnitus, bilateral Sensorineural hearing loss of both ears History of SCC (squamous cell carcinoma) of skin Gastric ulcer Actinic keratosis Surgical History History of removal of cyst Hx of colonoscopy Hx of cataract extraction H/O hernia repair S/P laparoscopic cholecystectomy Family History Mother Hypertension Father Diabetes Myocardial infarction Stroke Grandmother Cancer Other No pertinent family history Denies family history of Ovarian cancer Prostate cancer Breast cancer Lung cancer Colorectal cancer Social History Smoking Status: Current every day smoker Tobacco Type: Cigars Cigarettes Per Day: 1 cigar daily- ADVISED; Second Hand Exposure: No; Do You Dip or Chew Tobacco: No; Hx Alcohol Use: No Hx Substance Use: No Preferred Language: Greenlandic Communication Ability: Effective Visual Impairment: Diminished Hearing Ability: Normal 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 Required: No Beliefs That Will Affect Care: None marital status: Current Living Situation: Spouse current occupational status: retired How many Children do You have: 1 Other Information That Helps Us Care for You: No Feels Safe at Home: Yes Safety Concerns: Feels Safe At This Time Childhood Exposure to Second-Hand Smoke: Yes Diet: regular Diet Comment: no diet caffeine: Yes during the past year weight has: decreased > 10 lbs Dental Care, Regularly: Yes Physical Activity Frequency: 1-2 Times per Week Seatbelt Use: always Sunscreen Use: No Do you think of yourself as: straight/heterosexual Assistive Devices: Glasses Allergies Allergies Allergy/AdvReac Type Severity Reaction Status Date / Time adhesive AdvReac Unknown Redness of Verified 08/22/24 11:27 Skin Home Meds Home Medications Medication Instructions Recorded Confirmed multivitamin 1 tab PO QPM 05/27/22 08/25/24 melatonin 1 mg tablet 1 mg PO HS PRN Sleep 07/14/22 08/25/24 blood-glucose sensor (FreeStyle 11/09/23 08/22/24 Syed 3 Sensor device) aspirin 81 mg tablet,delayed 81 mg PO QAM 07/14/24 08/25/24 release (Adult Low Dose Aspirin) rosuvastatin 40 mg tablet 40 mg PO QPM 07/14/24 08/25/24 tamsulosin 0.4 mg capsule 0.4 mg PO QPM 07/14/24 08/25/24 cholecalciferol (vitamin D3) 50 50 mcg PO DAILY 08/01/24 08/25/24 mcg (2,000 unit) capsule PreserVision AREDS 1 cap PO DIRECTED 08/10/24 08/25/24 peg 400-propylene glycol 0.4 %-0.3 1 drp ophthalmic (eye) QAM 08/10/24 08/25/24 % eye drops semaglutide 2 mg/dose (8 mg/3 mL) 2 mg subcut Q7D 08/10/24 08/25/24 subcutaneous pen injector Previous Rx's Medication Instructions Recorded sildenafil 100 mg tablet 50 mg (1/2 x 100 mg) PO ONCE PRN 10/04/20 sexual activity #7 tabs gabapentin 600 mg tablet 1,200 mg (2 x 600 mg) PO BID 90 10/20/23 days #360 tabs insulin aspart U-100 100 unit/mL See Rx Instructions .Route 11/11/23 subcutaneous solution (Novolog .COMPLEX #150 mL U-100 Insulin aspart) insulin pump cart,cont inf,BT #90 ea 01/04/24 (Omnipod Dash Pods (Gen 4) subcutaneous cartridge) duloxetine 30 mg capsule,delayed 30 mg PO BID #180 caps 01/06/24 release (Cymbalta) insulin syringe-needle U-100 0.5 #100 ea 02/11/24 mL 31 gauge x 5/16" (BD Insulin Syringe Ultra-Fine) insulin syringes (disposable) 1 mL #500 ea 02/11/24 evolocumab 140 mg/mL subcutaneous 140 mg subcut Q14D #6 mL 05/03/24 pen injector (Repatha SureClick) empagliflozin 10 mg tablet 10 mg PO QAM #90 tabs 07/11/24 (Jardiance) Results & Data (ED) Vital Signs Vital Signs - 24 hr 08/25/24 12:02 08/25/24 12:14 08/25/24 12:35 Temperature 36.8 C Temperature Source Temporal Artery Scan Pulse Rate - Lying Pulse Rate - Sitting Pulse Rate - Standing Pulse Rate 100 H 86 Pulse Rate [Right Finger] 85 Pulse Rate from SpO2 Sensor Pulse Rhythm Regular Pulse Rhythm [Right Finger] Regular Pulse Strength Normal Pulse Strength [Right Finger] Normal Respiratory Rate 18 12 Respiratory Effort / Characteristics Non-Labored Spontaneous Non-Labored Respiratory Depth Normal Normal Respiratory Pattern Regular Blood Pressure - Lying Blood Pressure - Sitting Blood Pressure- Standing Blood Pressure 93/62 L Blood Pressure [Right Arm] 138/84 Blood Pressure Mean 72 Blood Pressure Mean [Right Arm] 102 Blood Pressure Position [Right Arm] Sitting Pulse Oximetry 94 95 Oxygen Delivery Method Room Air Room Air Sepsis New/Unexplained Change in Mental Status N/A Sepsis Action Taken by Nursing No Action Required 08/25/24 12:45 08/25/24 12:51 08/25/24 13:00 Temperature Temperature Source Pulse Rate - Lying Pulse Rate - Sitting Pulse Rate - Standing Pulse Rate 83 80 Pulse Rate [Right Finger] Pulse Rate from SpO2 Sensor 83 80 Pulse Rhythm Pulse Rhythm [Right Finger] Pulse Strength Pulse Strength [Right Finger] Respiratory Rate 18 16 Respiratory Effort / Characteristics Respiratory Depth Respiratory Pattern Blood Pressure - Lying Blood Pressure - Sitting Blood Pressure- Standing Blood Pressure 135/81 143/87 H Blood Pressure [Right Arm] Blood Pressure Mean 99 105 Blood Pressure Mean [Right Arm] Blood Pressure Position [Right Arm] Pulse Oximetry 97 96 96 Oxygen Delivery Method Room Air Room Air Room Air Sepsis New/Unexplained Change in Mental Status Sepsis Action Taken by Nursing 08/25/24 13:30 08/25/24 14:18 08/25/24 14:49 Temperature Temperature Source Pulse Rate - Lying 73 Pulse Rate - Sitting 76 Pulse Rate - Standing 79 Pulse Rate 77 77 Pulse Rate [Right Finger] Pulse Rate from SpO2 Sensor 78 79 Pulse Rhythm Pulse Rhythm [Right Finger] Pulse Strength Pulse Strength [Right Finger] Respiratory Rate 18 22 Respiratory Effort / Characteristics Respiratory Depth Respiratory Pattern Blood Pressure - Lying 153/81 H Blood Pressure - Sitting 129/76 Blood Pressure- Standing 117/73 Blood Pressure 161/87 H 160/88 H Blood Pressure [Right Arm] Blood Pressure Mean 111 112 Blood Pressure Mean [Right Arm] Blood Pressure Position [Right Arm] Pulse Oximetry 98 94 Oxygen Delivery Method Room Air Room Air Sepsis New/Unexplained Change in Mental Status Sepsis Action Taken by Nursing 08/25/24 14:51 08/25/24 15:15 Temperature Temperature Source Pulse Rate - Lying Pulse Rate - Sitting Pulse Rate - Standing Pulse Rate 79 75 Pulse Rate [Right Finger] Pulse Rate from SpO2 Sensor 80 76 Pulse Rhythm Pulse Rhythm [Right Finger] Pulse Strength Pulse Strength [Right Finger] Respiratory Rate 14 14 Respiratory Effort / Characteristics Respiratory Depth Respiratory Pattern Blood Pressure - Lying Blood Pressure - Sitting Blood Pressure- Standing Blood Pressure 153/81 H 168/89 H Blood Pressure [Right Arm] Blood Pressure Mean 105 115 Blood Pressure Mean [Right Arm] Blood Pressure Position [Right Arm] Pulse Oximetry 97 97 Oxygen Delivery Method Room Air Room Air Sepsis New/Unexplained Change in Mental Status Sepsis Action Taken by Nursing Laboratory Data 08/25/24 12:15 08/25/24 12:15 Lab Results 08/25/24 Range/Units 12:15 WBC 7.81 (4.8-10.8) K/ul RBC 5.65 (4.70-6.10) M/uL Hgb 17.3 (14.0-18.0) g/dl Hct 50.8 (42.0-52.0) % MCV 89.9 (80.0-100.0) fL MCH 30.6 (25.0-34.0) pg MCHC 34.1 (32.0-36.0) g/dL RDW Std Deviation 43.0 (36.4-46.3) fL RDW Coeff of Slim 13.1 (11.5-14.5) % Plt Count 225 (130-400) K/uL MPV 9.1 L (9.4-12.4) fL Immature Gran % (Auto) 0.4 % Neut % (Auto) 74.3 % Lymph % (Auto) 14.0 % Dale % (Auto) 7.8 % Eos % (Auto) 2.6 % Baso % (Auto) 0.9 % Neut # (Auto) 5.81 (1.40-6.50) K/uL Lymph # (Auto) 1.09 L (1.20-3.40) K/uL Dale # (Auto) 0.61 H (0.11-0.59) K/uL Eos # (Auto) 0.20 (0.00-0.50) K/uL Baso # (Auto) 0.07 (0.00-0.20) K/uL Immature Gran # (Auto) 0.03 (0.01-0.20) K/uL Sodium 142 (136-145) mmol/L Potassium 3.4 L (3.5-5.1) mmol/L Chloride 105 (98-107) mmol/L Carbon Dioxide 26 (21-32) mmol/L Anion Gap 11 (3-11) BUN 22 (6-23) mg/dl Creatinine 1.69 H (0.6-1.4) mg/dl Est Cr Clr Drug Dosing 44.2 ml/min eGFR 41.04 BUN/Creatinine Ratio 13.0 (10-20) Glucose 218 H (70-99(Fasting)) mg/dl Calcium 9.7 (8.6-10.3) mg/dl Total Bilirubin 0.6 (0.2-1.0) mg/dl AST 15 (13-39) U/L ALT 23 (7-52) U/L Alkaline Phosphatase 82 (34-104) U/L Troponin I High Sens 10.9 (0-20) pg/ml Total Protein 7.6 (6.0-8.3) gm/dl Albumin 4.7 (3.4-5.0) gm/dl Globulin 2.9 (2.5-4.0) gm/dl Albumin/Globulin Ratio 1.6 (0.9-2) Lipase 19 (11-82) U/L Administered Medications Discontinued Medications Sodium Chloride (Nss) 1,000 mls @ 999 mls/hr IV .Q1H1M ONE Stop: 08/25/24 13:45 Last Infusion: 08/25/24 14:35 Dose: Infused [place]ed [place] [facility] [place] 08/25/24 12:48 Dose: 999 mls/hr Documented By: CHRISTINA Potassium Chloride (Potassium Chloride Crtab 20 Meq Tabcr) 60 meq PO NOW STA Stop: 08/25/24 15:26 Last Admin: 08/25/24 16:15 Dose: 60 meq Documented By[place] [facility] [place] Data Radiologist's Impression: Chest X-Ray 08/25/24 12:45 XR chest 1V portable HISTORY: 78 years-old Male Chest pain, nonspecific COMPARISON: 05/08/2023 TECHNIQUE: AP view the chest FINDINGS: Cardiomediastinal and hilar silhouettes are within normal limits. No pneumothorax, pleural effusion or airspace consolidation. Spondylitic spurring of the spine. IMPRESSION: No acute process. ACT 112: Negative or not required by law. The above report was generated using voice recognition software. It may contain grammatical, syntax or spelling errors. Electronically signed by: Hari Brady M.D. 08/25/2024 1:24 PM Discharge Plan Visit Data Chief Complaint: Hypotension Stated Complaint: HYPOTENSION, NEAR SYNCOPE ED Provider: Fitz Mock Discharge Problem: Syncope Patient Disposition: Admitted As Inpatient Discharge Instructions Interventions: ED Discharge Assessment Last Done: 08/25/24 17:33
[2024-08-25 13:07] LABS: Basophils # (auto) 0.07 K/uL (0.00-0.20); Basophils % (auto) 0.9 %; Eosinophils % (auto) 2.6 %; Hematocrit (blood only) 50.8 % (42.0-52.0); Hemoglobin 17.3 g/dl (14.0-18.0); Immature Granulocytes # (auto) 0.03 K/uL (0.01-0.20); Immature Granulocytes % (auto) 0.4 %; Lymphocytes # (auto) 1.09 K/uL (1.20-3.40); Mean Corpuscular Hemoglobin 30.6 pg (25.0-34.0); Mean Corpuscular Hgb Conc 34.1 g/dL (32.0-36.0); Mean Corpuscular Volume 89.9 fL (80.0-100.0); Mean Platelet Volume 9.1 fL (9.4-12.4); Monocytes # (auto) 0.61 K/uL (0.11-0.59); Monocytes % (auto) 7.8 %; Neutrophils # (auto) 5.81 K/uL (1.40-6.50); Neutrophils % (auto) 74.3 %; Platelet Count 225 K/uL (130-400); RDW Coefficient of Variation 13.1 % (11.5-14.5); Red Blood Count 5.65 M/uL (4.70-6.10); White Blood Count 7.81 K/ul (4.8-10.8)
--- NOTE | 2024-08-25 13:25 | XRay Report ---
XR chest 1V portable HISTORY: 78 years-old Male Chest pain, nonspecific COMPARISON: 05/08/2023 TECHNIQUE: AP view the chest FINDINGS: Cardiomediastinal and hilar silhouettes are within normal limits. No pneumothorax, pleural effusion o r airspace consolidation. Spondylitic spurring of the spine. IMPRESSION: No acute process. ACT 112: Negative or not required by law. The above report was generated using voice recognition software. It may contain grammatical, syntax o r spelling errors. Electronically signed by: Hari Brady M.D. 08/25/2024 1:24 PM
[2024-08-25 13:29] LABS: Albumin Globulin Ratio 1.6 (0.9-2); Albumin Level 4.7 gm/dl (3.4-5.0); Bilirubin,Total 0.6 mg/dl (0.2-1.0); Calcium 9.7 mg/dl (8.6-10.3); Creatinine Clr Calc Pharmacy 44.2 ml/min; Globulin 2.9 gm/dl (2.5-4.0); Potassium 3.4 mmol/L (3.5-5.1); Total Protein 7.6 gm/dl (6.0-8.3)
[2024-08-25 13:34] LABS: Troponin I High Sensitivity 10.9 pg/ml (0-20)
--- NOTE | 2024-08-25 14:41 | History & Physical Report ---
Date of Service August 25, 2024 Assessment & Plan (1) Syncope: Plan: suspect secondary to orthostatic hypotension with poor po intake patient with syncopal episode in cardiology office waiting room 08/25, reports 1 other syncopal episode in July while urinating Echo 06/2024 shows moderate LVH, mild/moderate aortic stenosis, mild tricuspid regurg - EKG showed sinus tachycardia, HR 105 -> resolved (80) - Troponin negative - CXR negative - Hypotensive on arrival (80/52) -> 1 L NSS -> now 143/87 - orthostatics 153/81 -> 129/76 -> 117/73 - with critical IV fluid shortage will continue to promote oral hydration and recheck orthostatic vital signs this evening in and AM - Defer repeat echo as had recent echo in June - monitor on telemetry (2) Hypotension: Plan: Orthostatic hypotension - not on any hypertension medications at home - on duloxetine and Jardiance although has been for >1 year without previous Sx - Resolved with IV fluid resuscitation of 1L NSS - Continue to promote oral hydration and Tx above (3) Hypokalemia: Plan: possibly secondary to decreased p.o. intake - 3.4 on admission -> 60 MeQ PO - recheck with AM labs (4) Acute kidney injury: Plan: Mild history of stage III CKD - Cr 1.69, BUN WNL - follows with nephrology who states baseline creatinine 2.2, although has been trending between 1.2-1.4 recently - avoid nephrotoxic agents - add UA - Promote oral hydration (5) Diabetes mellitus, type 2: Plan: Controlled on Semaglutide, Jardiance, insulin at home - Most recent A1C 8.2 (06/2024) - continue home insulin pump as obs and likely to dc home in AM - hold Jardiance and Semaglutide - T2DM diet - BSG ACHS if eating, q6h if npo Plan Chronic stable diagnoses: HLD/CAD - continue ASA and statin depression - continue duloxetine BPH - continue tamsulosin VTE ppx: SCDs, defer pharmacologic PPx is likely to discharge home in a.m. Diet: T2DM Code status: full Dispo: med/tele; anticipate discharge in AM 08/26 Admission and Anticipated Discharge Date Admission Date: 08/25/24 History of Present Illness Chief Complaint: hypotension Primary Care Provider: Bradly R. Shunk, DO Patient is a 78-year-old male with a past medical history of stage III CKD, type II DM, hypertension, hyperlipidemia, CAD. He presents today after a syncopal episode in the waiting room at his cardiology visit. He had a syncopal episode earlier July while urinating which resulted in him being referred to cardiology for workup. Office staff assisted him to ground, no head strike. He stated that he had no symptoms prior to syncopal episode, denies dizziness, lightheadedness, chest pain, dyspnea. He stated that he only had grapefruit juice before leaving the house this morning, no breakfast. He also stated that he had poor p.o. intake yesterday, he just did not have much of an appetite; meals consisted of cookies, Jell-O, yogurt. He does try to drink fluids daily, may have had decrease hydration yesterday. Patient denies fever, chills, headache, dizziness, lightheadedness, dyspnea, dyspnea on exertion, chest pain, abdominal pain, nausea, vomiting, diarrhea, constipation, dysuria, hematuria, edema. he endorses tingling as he has neuropathy. He does have a smoking history, 3 to 4 cigars a week. No alcohol use. He took his home medications this morning. His only recent medication changes were adding a vitamin D supplement. He has been on Jardiance, gabapentin, and duloxetine for many years. Patient is traveling to [facility] in 23 days and is concerned about syncopal episodes while on his trip and possibly start a new medication. Patient's daughter updated at bedside. Allergies Allergy/AdvReac Type Severity Reaction Status Date / Time adhesive AdvReac Unknown Redness of Verified 08/22/24 11:27 Skin Home Medications Medication Instructions Recorded Confirmed Type sildenafil 100 mg tablet 50 mg (1/2 x 100 mg) PO ONCE PRN 10/04/20 08/25/24 Rx sexual activity #7 tabs multivitamin 1 tab PO QPM 05/27/22 08/25/24 History melatonin 1 mg tablet 1 mg PO HS PRN Sleep 07/14/22 08/25/24 History gabapentin 600 mg tablet 1,200 mg (2 x 600 mg) PO BID 90 10/20/23 08/25/24 Rx days #360 tabs blood-glucose sensor (FreeStyle 11/09/23 08/22/24 History Syed 3 Sensor device) insulin aspart U-100 100 unit/mL See Rx Instructions .Route 11/11/23 08/25/24 Rx subcutaneous solution (Novolog .COMPLEX #150 mL U-100 Insulin aspart) insulin pump cart,cont inf,BT #90 ea 01/04/24 08/22/24 Rx (Omnipod Dash Pods (Gen 4) subcutaneous cartridge) duloxetine 30 mg capsule,delayed 30 mg PO BID #180 caps 01/06/24 08/25/24 Rx release (Cymbalta) insulin syringe-needle U-100 0.5 #100 ea 02/11/24 08/22/24 Rx mL 31 gauge x 5/16" (BD Insulin Syringe Ultra-Fine) insulin syringes (disposable) 1 mL #500 ea 02/11/24 08/22/24 Rx evolocumab 140 mg/mL subcutaneous 140 mg subcut Q14D #6 mL 05/03/24 08/25/24 Rx pen injector (Repatha SureClick) empagliflozin 10 mg tablet 10 mg PO QAM #90 tabs 07/11/24 08/25/24 Rx (Jardiance) aspirin 81 mg tablet,delayed 81 mg PO QAM 07/14/24 08/25/24 History release (Adult Low Dose Aspirin) rosuvastatin 40 mg tablet 40 mg PO QPM 07/14/24 08/25/24 History tamsulosin 0.4 mg capsule 0.4 mg PO QPM 07/14/24 08/25/24 History cholecalciferol (vitamin D3) 50 50 mcg PO DAILY 08/01/24 08/25/24 History mcg (2,000 unit) capsule PreserVision AREDS 1 cap PO DIRECTED 08/10/24 08/25/24 History peg 400-propylene glycol 0.4 %-0.3 1 drp ophthalmic (eye) QAM 08/10/24 08/25/24 History % eye drops semaglutide 2 mg/dose (8 mg/3 mL) 2 mg subcut Q7D 08/10/24 08/25/24 History subcutaneous pen injector Past Med/Surg History Problem List (Updated 08/25/24 @ 15:37 by Gunjan Champagne PA-C) Acute kidney injury Diabetes mellitus, type 2 Hypokalemia Hypotension Syncope Aortic systolic murmur on examination Background diabetic retinopathy associated with type 2 diabetes mellitus Incomplete emptying of bladder BPH with obstruction/lower urinary tract symptoms Myasthenia gravis following with S neuro: "primarily ocular MG, monitor for persistent dysphagia" Elevated prostate specific antigen (PSA) CAD (coronary atherosclerotic disease) Agatston calcium score was 2411.( left main 118; lad 710; left circumflex month 1436; RCA 118). This scan reported diffuse calcified plaque in all coronary arteries. RCA non dominant; dobutamine stress echocardiogram thereafter without evidence of myocardial ischemia; follows with [facility] Hypertension Vitamin D deficiency Stage III chronic kidney disease Proteinuria Obesity Dyslipidemia Dysesthesia Diabetic peripheral neuropathy associated with type 2 diabetes mellitus Diabetes mellitus type 2, uncontrolled Medical History History of GI bleed Macular degeneration Diabetic retinopathy Diabetic peripheral neuropathy Myasthenia gravis Stage III chronic kidney disease Dyslipidemia Hypertension Diabetes mellitus, type 2 CAD (coronary atherosclerotic disease) BPH with obstruction/lower urinary tract symptoms Systolic murmur of aorta History of kidney stones Dysphagia Hx of drainage of abscess Tinnitus, bilateral Sensorineural hearing loss of both ears History of SCC (squamous cell carcinoma) of skin Gastric ulcer Actinic keratosis Surgical History History of removal of cyst Hx of colonoscopy Hx of cataract extraction H/O hernia repair S/P laparoscopic cholecystectomy Family History Mother Hypertension Father Diabetes Myocardial infarction Stroke Grandmother Cancer Other No pertinent family history Denies family history of Ovarian cancer Prostate cancer Breast cancer Lung cancer Colorectal cancer Social History Smoking Status: Current some day smoker Tobacco Type: Cigars Cigarettes Per Day: 1 cigar daily- ADVISED; Second Hand Exposure: No; Do You Dip or Chew Tobacco: No; Hx Alcohol Use: Yes Alcohol type: hard liquor Alcohol Intake Frequency: Monthly or Less Hx Substance Use: No Preferred Language: Tamaz[place] Communication Ability: Effective Visual Impairment: Diminished Hearing Ability: Normal Supervisor Grinding Required: No Beliefs That Will Affect Care: None marital status: Current Living Situation: Spouse current occupational status: retired How many Children do You have: 1 Feels Safe at Home: Yes Childhood Exposure to Second-Hand Smoke: Yes Diet: regular Diet Comment: no diet caffeine: Yes during the past year weight has: decreased > 10 lbs Dental Care, Regularly: Yes Physical Activity Frequency: 1-2 Times per Week Seatbelt Use: always Sunscreen Use: No Do you think of yourself as: straight/heterosexual Assistive Devices: Glasses Review of Systems Review of Systems: see HPI Physical Exam Physical Exam: The patient is awake, alert and oriented 3, well developed and well nourished, normocephalic and atraumatic, in no acute distress. Non-toxic appearing. HEENT- EOMI, mucous membranes moist. Hearing grossly intact. Heart-normal S1 and S2. No murmurs, rubs or gallops. Lungs-clear bilaterally, no respiratory distress, no accessory muscle use. Abdomen-normal bowel sounds and soft. No ascites noted. Non-tender. Extremities- no clubbing, cyanosis, or edema. Rheumatologic-normal range of motion. Psychiatric-normal affect. Results & Data Results & Data Vital Signs (Past 12 Hours) Vital Signs Temp Pulse Pulse Resp BP BP Pulse Ox 08/25/24 13:00 80 16 143/87 H 96 08/25/24 12:51 96 08/25/24 12:45 83 18 135/81 97 08/25/24 12:35 86 08/25/24 12:14 85 12 138/84 95 08/25/24 12:02 36.8 C 100 H 18 93/62 L 94 O2 Del Method 08/25/24 13:00 Room Air 08/25/24 12:51 Room Air 08/25/24 12:45 Room Air 08/25/24 12:35 08/25/24 12:14 Room Air 08/25/24 12:02 Room Air Code Status & VTE Plan Code Status DNI/DNI VTE Prophylaxis Plan VTE Prophylaxis will be ordered: Yes Supervising Physician Co-Signing Physician Notes Patient seen and examined, chart reviewed, case discussed with Gunjan Champagne PA-C and I agree with the assessment and plan as above except as otherwise noted Labs and images reviewed Dionte is a 78-year-old male who is referred to the ER after he experienced a syncopal episode while at the cardiology office. Patient had stood and was going to check and when he passed out, no head strike. Patient has had 2 prior episodes of syncope in the previous few months. Echo 06/2024 was with normal biventricular function and EF 60 to 65% with grade 1 diastolic dysfunction, mild to moderate AAS, mild TR and normal right sided pressures. EKG on admission is sinus tachycardia QTc 478 without territorial ischemia. Patient was hypotensive on arrival to the ER 80/52, 93/62. Normalized following a fluid bolus of 1 L however subsequently on orthostatic testing did have a systolic drop of 40 points. He does not have leukocytosis and denies infectious symptoms. As he has had a third episode of syncope and is substantially orthostatic is recommended for overnight observation. Initial evaluation does not show any signs of sepsis/infection. Patient is mildly hypokalemic, creatinine is above normal/LANDEN is present and is volume contracted. Agree with fluid repletion tonight, and encourage/force oral fluids in the setting of IV fluid shortage. Once patient is euvolemic will recheck orthostatic vitals. If he remains orthostatic despite good volume status then would need to pursue pharmacologic treatment at that time. Agree with above PG Care Time/CCT Total # of Minutes Spent Total Time Spent with Patient: Total time spent is greater than 50% in coordination of care (as documented) at patient's floor/unit and/or counseling patient: Coding Level of Care Code 19622 INT INP/OBS CARE 3/75MIN Diagnoses Syncope R55 Hypotension I95.9 Hypokalemia E87.6 Acute kidney injury N17.9 Diabetes mellitus, type 2 E11.9
--- NOTE | 2024-08-25 15:32 | Electrocardiogram Report ---
Test Reason : Blood Pressure : */* mmHG Vent. Rate : 89 BPM Atrial Rate : 89 BPM P-R Int : 164 ms QRS Dur : 92 ms QT Int : 366 ms P-R-T Axes : 38 0 66 degrees QTcB Int : 445 ms Normal sinus rhythm Normal ECG When compared with ECG of 25-Aug-2024 11:06, (unconfirmed) Questionable change in QRS axis Confirmed by Luca Rhoades ([id number]) on 08/25/2024 3:31:59 PM Referred By: REFERRED SELF Confirmed By: Luca Rhoades
[2024-08-25] MEDS ORDERED: DEXTROSE 50% 50 ML SYRINGE IV PRN (16:11)
[2024-08-25] MEDS ORDERED: CARBOHYDRATES FOR HYPOGLYCEMIA PO PRN (16:11)
[2024-08-25] MEDS ORDERED: GLUCOSE 40% GEL 15 GM TUBE PO PRN (16:11)
[2024-08-25] MEDS ORDERED: GLUCAGON FOR INJ 1 MG VIAL SQ PRN (16:11)
[2024-08-25] MEDS ORDERED: GLUCOSE 10 TAB/TUBE PO PRN (16:11)
[2024-08-25] MEDS: POTASSIUM CHLORIDE CRTAB 20 MEQ TABCR PO STA (16:15)
[2024-08-25 17:19] LABS: Appearance Urine Turbid (Clear); Bacteria Urine Automated 4+ (None Seen); Bilirubin Urine Negative (Negative); Blood Urine 2+ (Negative); Cast Urine Automated >20 /lpf (0-2); Color Urine Yellow; Glucose Urine UA 2+ (Negative); Ketones Urine Trace (Negative); Leukocyte Esterase Urine 2+ (Negative); Nitrite Urine Negative (Negative); Protein Urine 2+ (Negative); RBC Urine Automated 0-2 /hpf (0-2); Specific Gravity Urine 1.033 (1.000-1.030); Urobilinogen Urine Negative (Negative); WBC Urine Automated >50 /hpf (0-5)
[2024-08-25] MEDS ORDERED: DOCUSATE SODIUM 100 MG CAP PO PRN (17:43)
[2024-08-25] MEDS: ACETAMINOPHEN 325 MG TAB PO PRN (21:05)
[2024-08-25] MEDS: DULoxetine HCL 30 MG CAP PO SCH (21:06)
[2024-08-25] MEDS: MELATONIN 3 MG TAB PO PRN (21:06)
[2024-08-25] MEDS: ROSUVASTATIN CALCIUM 20 MG TAB PO SCH (21:06)
[2024-08-25] MEDS: TAMSULOSIN HCL 0.4 MG CAP PO SCH (21:07)
[2024-08-25] MEDS: GABAPENTIN 600 MG TAB PO SCH (21:07)
[2024-08-26 04:59] VITALS: TEMP 97.7
[2024-08-26 07:09] LABS: Basophils # (auto) 0.06 K/uL (0.00-0.20); Basophils % (auto) 0.9 %; Eosinophils # (auto) 0.28 K/uL (0.00-0.50); Eosinophils % (auto) 4.1 %; Hematocrit (blood only) 49.4 % (42.0-52.0); Hemoglobin 16.6 g/dl (14.0-18.0); Immature Granulocytes # (auto) 0.02 K/uL (0.01-0.20); Immature Granulocytes % (auto) 0.3 %; Lymphocytes # (auto) 1.43 K/uL (1.20-3.40); Lymphocytes % (auto) 20.8 %; Mean Corpuscular Hemoglobin 31.1 pg (25.0-34.0); Mean Corpuscular Hgb Conc 33.6 g/dL (32.0-36.0); Mean Corpuscular Volume 92.7 fL (80.0-100.0); Mean Platelet Volume 9.2 fL (9.4-12.4); Monocytes # (auto) 0.52 K/uL (0.11-0.59); Monocytes % (auto) 7.6 %; Neutrophils # (auto) 4.56 K/uL (1.40-6.50); Neutrophils % (auto) 66.3 %; Platelet Count 193 K/uL (130-400); RDW Coefficient of Variation 12.8 % (11.5-14.5); RDW Standard Deviation 43.8 fL (36.4-46.3); Red Blood Count 5.33 M/uL (4.70-6.10); White Blood Count 6.87 K/ul (4.8-10.8)
[2024-08-26 08:06] VITALS: PULSE 72; RESP 20; O2SAT 95
[2024-08-26] MEDS: ARTIFICIAL TEARS OP SCH (08:17)
[2024-08-26] MEDS: CHOLECALCIFEROL 25 MCG (1000 UNITS) TAB PO SCH (08:17)
[2024-08-26] MEDS: ASPIRIN 81 MG ECTAB PO SCH (08:18)
[2024-08-26 09:33] LABS: Calcium 9.3 mg/dl (8.6-10.3)
[2024-08-26 09:39] LABS: Creatinine Clr Calc Pharmacy 43.2 ml/min
[2024-08-26 09:45] LABS: Potassium 3.7 mmol/L (3.5-5.1)
--- NOTE | 2024-08-26 12:47 | Discharge Summary ---
Discharge Summary Date of Service August 26, 2024 Principal Dx & Hospital Course #1 = Principal Diagnosis (1) Syncope: Patient had an episode of syncope while in the cardiology office waiting room 08/25, where he was referred for prior episodes of syncope. No prodrome to syncopal episode, but reports was more dizzy when he woke up. Reports has been having dizziness with position changes for over a year has been following with PCP for this. Echo 06/2024 shows moderate LVH, mild/moderate aortic stenosis, mild tricuspid regurg - EKG showed sinus tachycardia, HR 105 -> resolved (80) - Troponin negative. CXR negative Patient was hypotensive on arrival and received 1L IVF. BP improved. Orthostatics positive, but not becoming hypotensive. Multiple medications that could potentially be contributing (duloxetine, Jardiance, flomax) but none of which are new. Opted to hold Flomax for one week and see if there is a difference. Encouraged compression stockings and increased PO intake. Seems to be that orthostatic hypotension would be primary cause of syncope, but given lack of prodrome concern for underlying arrythmia - outpatient rn cardiac ordered. - no events on tele while inpatient (2) Hypokalemia: possibly secondary to decreased p.o. intake - 3.4 on admission -> 60 MeQ PO - recheck 3.7 resolved (3) Acute kidney injury: Mild history of stage III CKD - Cr 1.69 on admission, BUN WNL - follows with nephrology who states baseline creatinine 2.2, although has been trending between 1.2-1.4 recently Repeat Cr improving to 1.5 --> continue to encourage PO hydration UA added with LANDEN - showing Enteroccocus - patient denies fever, chills, night sweats, dysuria, frequency, urgency. Afebrile, no leukocytosis. --> likely asymptomatic bacteruria and will not treat - advised if urinary symptoms develop to contact PCP (4) Diabetes mellitus, type 2: Controlled on Semaglutide, Jardiance, insulin at home - Most recent A1C 8.2 (06/2024) continue home regimen on discharge Plan Chronic stable diagnoses: HLD/CAD - continue ASA and statin depression - continue duloxetine BPH - hold tamsulosin for 1 week dispo: Discharge to home today. Discussed return precautions with him and his . outpatient cardiac monitoring arranged Notes For Next Care Provider orthostatic hypotension improved with IV fluids, question concomitant medication effect. instructed to hold Flomax x 1 week. Admission HPI Per Admitting Provider Patient is a 78-year-old male with a past medical history of stage III CKD, type II DM, hypertension, hyperlipidemia, CAD. He presents today after a syncopal episode in the waiting room at his cardiology visit. He had a syncopal episode earlier July while urinating which resulted in him being referred to card iology for workup. Office staff assisted him to ground, no head strike. He stated that he had no symptoms prior to syncopal episode, denies dizziness, lightheadedness, chest pain, dyspnea. He stated that he only had grapefruit juice before leaving the house this morning, no breakfast. He also stated that he had poor p.o. intake yesterday, he just did not have much of an appetite; meals consisted of cookies, Jell-O, yogurt. He does try to drink fluids daily, may have had decrease hydration yesterday. Patient denies fever, chills, headache, dizziness, lightheadedness, dyspnea, dyspnea on exertion, chest pain, abdominal pain, nausea, vomiting, diarrhea, constipation, dysuria, hematuria, edema. he endorses tingling as he has neuropathy. He does have a smoking history, 3 to 4 cigars a week. No alcohol use. He took his home medications this morning. His only recent medication changes were adding a vitamin D supplement. He has been on Jardiance, gabapentin, and duloxetine for many years. Patient is traveling to [facility] in 23 days and is concerned about syncopal episodes while on his trip and possibly start a new medication. Patient's daughter updated at bedside. Discharge Exam General: NAD, VS as above HEENT: MMM Resp: normal respiratory effort, lungs clear to auscultation CV: RRR, no murmur, Abd: normal bowel sounds, non tender, no hepatosplenomegaly Extremities: Moves all extremities, no edema Neuro: A&O x3, Skin: intact, no lesions noted Discharge Plan Discharge Items Patient Disposition: Home - Self-Care Reason For Visit: HYPOTENSION, SYNCOPAL EPISODE Discharge Diagnosis: Orthostatic Hypotension Activity: Resume your previous activity Weightbearing: Full weightbearing Non-emergency contact: Primary Care Provider Call non-emergency contact if: you have any medication questions, your symptoms worsen and your temperature is above 101 Follow-up/Referrals: Denis Brown Jr, MD, FACC [Physician] - (please schedule follow up for continued symptoms/monitor results ) Bradly Chin DO [Primary Care Provider] - 08/30/24 2:45 pm (Hospital follow up on August 30 at 2:45) Diet: Carb Consistent or DM2 Addtl Attending Provider Instructions: Mr. Hardy, You were hospitalized after an episode of syncope. This was possibly caused by your blood pressure dropping when you change positions - this is called orthostatic hypotension. You were provided with fluids and your blood pressure improved. It does still drop some when you stand. Please take your time when changing positions. We are going to hold your flomax for one week. Your jardiance can also cause lower blood pressure. You may need to trial off that in the future if symptoms d o not improve. As we discussed, it is atypical for it to be only your blood pressure to be causing you to pass out since you do not get any warning symptoms before it happens. For that reason, we have ordered a rn cardiac that will be delivered to your house. Results will go to Dr. Brown's office. Recommendations: * Hold flomax for one week - and see if your dizziness improves * Make sure you are staying adequately hydrated, 6-8 glasses of water a day. If you having trouble reaching this consider adding an electrolyte drink (Gatorade, Powerade, Pedialyte, etc.) to increase hydration. * Wear compression stockings during the day, especially if you are going to be having a lot of position changes * Do not decrease your salt intake * Closely monitor your blood sugars, avoid low blood sugar as this can also contribute to dizziness. * If you develop any urinary symptoms (urinary frequency, urgency, pain with urination) please contact your PCP * Follow-up with your PCP within 1 week Activity: You can do normal everyday activities as your body allows. Take rest breaks if you feel tired. Do not overexert. Stop activity if you have pain, shortness of breath or feel dizzy. Follow-up appointments: Make an appointment with your primary care physician within one week of discharge. A copy of this summary will be sent to them. Every time you see your primary care physician, or any other doctor, bring your medication list, and a list of questions. CONTACT YOUR PRIMARY CARE PROVIDER if you experience any of the following: Shortness of breath or difficulty breathing Fevers or chills Feeling tired with normal activity or experiencing dizziness or fainting Difficulty following your treatment plan, or difficulty taking medications CALL 911 OR GO TO THE EMERGENCY DEPARTMENT if you experience any of the following: Severe abdominal pain or nausea/vomiting Severe chest pain, or chest pain that radiates (moves) to your jaw or arm Sudden, severe shortness of breath or difficulty breathing Thank you for allowing us to participate in your care. Bonnie Wiley PA-C Pending Studies at Discharge: Yes ( urine culture) Stand-Alone Forms: My [facility] [employer], Smoking Cessation Medications and DC Order Prescriptions: Continued multivitamin Tablet 1 tab PO QPM gabapentin 600 mg tablet 1,200 mg PO BID 90 Days Qty: 360 3RF insulin aspart U-100 [Novolog U-100 Insulin aspart] 100 unit/mL solution See Rx Instructions .ROUTE .COMPLEX Qty: 150 3RF Patient Comments: currently running Rx Instructions: Infuse via insulin pump up to 160 units per day; (DME) Omnipod Dash Pods (Gen 4) Cartridge See Rx Instructions .Route Qty: 90 3RF Rx Instructions: change every day; TDD is up to 150 units a day duloxetine [Cymbalta] 30 mg capsule,delayed release(DR/EC) 30 mg PO BID Qty: 180 3RF (DME) insulin syringes (disposable) 1 mL syringe See Rx Instructions .Route Qty: 500 11RF Rx Instructions: As directed (DME) insulin syringe-needle U-100 [BD Insulin Syringe Ultra-Fine] 0.5 mL 31 gauge x 5/16" syringe See Rx Instructions miscellaneous .MEDSUPPLY Qty: 100 2RF Rx Instructions: As directed to use as needed with Novolog vial in case of pump failure Repatha SureClick 140 mg/mL pen injector 140 mg subcut Q14D Qty: 6 3RF Rx Instructions: 1 injection every other week Jardiance 10 mg tablet 10 mg PO QAM Qty: 90 1RF cholecalciferol (vitamin D3) 50 mcg (2,000 unit) capsule 50 mcg PO DAILY peg 400-propylene glycol 0.4-0.3 % drops 1 drp OP QAM sildenafil 100 mg tablet 50 mg PO ONCE PRN (Reason: sexual activity) Qty: 7 3RF Rx Instructions: no fill history available (DME) Tangible PlayStPushpay Syed 3 Sensor Device See Rx Instructions .Route semaglutide 2 mg/dose (8 mg/3 mL) pen injector 2 mg subcut Q7D Rx Instructions: inject subcutaneously once per week melatonin 1 mg Tablet 1 mg PO HS PRN (Reason: Sleep) aspirin [Adult Low Dose Aspirin] 81 mg tablet,delayed release (DR/EC) 81 mg PO QAM rosuvastatin 40 mg tablet 40 mg PO QPM PreserVision AREDS 1 cap PO DIRECTED Patient Comments: two capsules once daily Held tamsulosin 0.4 mg capsule 0.4 mg PO QPM Hold Instructions: Resume on 09/02/24. Discharge Orders: Discharge Order (Routine); Ordered 08/26/24 Ordered By: Bonnie Rodrigues/Other Patient Handouts: Orthostatic Hypotension Admission Data Admit Date/Time: 08/25/24 15:24 Attending Provider: Quinton Florentino Admit Provider: Shantanu Sepulveda Primary Care Provider: Bradly Chin Other Providers: Shantanu Sepulveda Other Interventions: Discharge Summary Assessment (RN) Last Done: 08/26/24 14:21 Hospital Stay Data Consultations 08/25/24 15:02 ED Decision to Admit Stat Pending Results Patient Have Any Pending Studies at Discharge: Yes ( urine culture) Discharge Instructions Given to Patient (Per Discharging Provider) Mr. Hardy, You were hospitalized after an episode of syncope. This was possibly caused by your blood pressure dropping when you change positions - this is called orthostatic hypotension. You were provided with fluids and your blood pressure improved. It does still drop some when you stand. Please take your time when changing positions. We are going to hold your flomax for one week. Your jardiance can also cause lower blood pressure. You may need to trial off that in the future if symptoms do not improve. As we discussed, it is atypical for it to be only your blood pressure to be causing you to pass out since you do not get any warning symptoms before it happens. For that reason, we have ordered a rn cardiac that will be delivered to your house. Results will go to Dr. Brown's office. Recommendations: * Hold flomax for one week - and see if your dizziness improves * Make sure you are staying adequately hydrated, 6-8 glasses of water a day. If you having trouble reaching this consider adding an electrolyte drink (Gatorade, Powerade, Pedialyte, etc.) to increase hydration. * Wear compression stockings during the day, especially if you are going to be having a lot of position changes * Do not decrease your salt intake * Closely monitor your blood sugars, avoid low blood sugar as this can also contribute to dizziness. * If you develop any urinary symptoms (urinary frequency, urgency, pain with urination) please contact your PCP * Follow-up with your PCP within 1 week Activity: You can do normal everyday activities as your body allows. Take rest breaks if you feel tired. Do not overexert. Stop activity if you have pain, shortness of breath or feel dizzy. Follow-up appointments: Make an appointment with your primary care physician within one week of discharge. A copy of this summary will be sent to them. Every time you see your primary care physician, or any other doctor, bring your medication list, and a list of questions. CONTACT YOUR PRIMARY CARE PROVIDER if you experience any of the following: Shortness of breath or difficulty breathing Fevers or chills Feeling tired with normal activity or experiencing dizziness or fainting Difficulty following your treatment plan, or difficulty taking medications CALL 911 OR GO TO THE EMERGENCY DEPARTMENT if you experience any of the following: Severe abdominal pain or nausea/vomiting Severe chest pain, or chest pain that radiates (moves) to your jaw or arm Sudden, severe shortness of breath or difficulty breathing Thank you for allowing us to participate in your care. Bonnie Wiley PA-C Supervising Physician Co-Signing Physician Notes Attending Attestation & Discharge Note: Chart reviewed, care plan d/w KATIE Wiley. I agree w/ the ramos components of her discharge documentation. Of note - I did not perform a bedside visit or personal examination on day of discharge. 78yo male with CKD stage 3, type II DM, hypertension, hyperlipidemia, CAD. Presented after he had an episode of syncope in the waiting area of the [facility] cardiology office. After transfer from the office to the [facility] ER he was found to be hypotensive. Given IV fluids for such. Remained orthostatic following IV fluids and thus was subsequently admitted for additional IV fluids. On hospital day #2 his orthostatics were much improved and he reported no dizziness. During his brief stay he did not have any abnormalities on telemetry. Despite a urine culture showing enterococcus he did not have any UTI symptoms, WBC count was normal on 08/25 and 08/26, and he had no fever. Thus, he was not given antibiotics as it was thought this represented asymptomat ic bacteriuria. At discharge recommended - 1. event monitor to r/o arrhythmia as the cause of his syncope although it is likely that orthostasis / volume depletion were to blame at least for this episode 2. hold flomax until time of follow-up in the event flomax is contributing to syncope Quinton Florentino MD Total Time Total Time Spent Total Time Spent (In Minutes): Time spent day of discharge 40 minutes including direct patient care, medication reconciliation, documentation, review of labs and images, and coordination of care. Coding Level of Care Code 10471 INP/OBS DISCH >30 MIN Diagnoses Syncope R55 Hypokalemia E87.6 Acute kidney injury N17.9 Diabetes mellitus, type 2 E11.9
[2024-08-26 14:22] VITALS: BP 132/71
== END 2024-08-26 15:22 | disposition home or self-care (01) ==
LOC: ED 11:59 → 2N 11:59 → SUATTDRO 15:24 → 2N 17:33